=== PATIENT | male | born 1940 | race Caucasian/White ===

== ENCOUNTER 2020-11-20 20:46 | Emergency (ER) | payer MEDICARE ==
[2020-11-20] MEDS ORDERED: SODIUM CHLORIDE 0.9% 500 ML 500 ML IV STA (21:48)
--- NOTE | 2020-11-20 21:58 | ED ---
Dizziness HPI - General Chief Complaint: Dizziness Stated Complaint: Dizziness, Weakness Time Seen by Provider: 11/20/20 21:32 Source: patient Mode of arrival: wheelchair - History of Present Illness Initial Comments: This patient is an 80-year-old man who presents with complaint that he has been feeling some generalized fatigue, a little bit of generalized weakness and feeling dizzy when he gets up to walk. He describes it as feeling off balance. He denies vertigo-type symptoms. Patient states it is not focal, but generalized. He is not aware of any symptoms of infection. No fever or chills. No congestion or cough. No vomiting or diarrhea. No change in urination area MD Complaint: dizziness Onset/Timin -: days(s) Timing: gradual onset Description: off-balance History of Same: No History of Trauma: No Severity: mild Improves With: remaining still, rest Worsens With: movement, exertion Associated Symptoms: other (Fatigue) - Related Data Home Medications Medication Instructions Recorded Confirmed Active Mind 1 tab PO DAILY 11/20/20 11/20/20 Atorvastatin [Lipitor] 40 mg PO DAILY 11/20/20 11/20/20 Cariprazine HCl [Vraylar] 3 mg PO DAILY 11/20/20 11/20/20 Cholecalciferol (Vitamin D3) 125 mcg PO DAILY 11/20/20 11/20/20 [Vitamin D3 (5000 Iu)] Fenofibric Acid (Choline) 135 mg PO HS 11/20/20 11/20/20 [Trilipix] Ferrous Sulfate [Feosol] 325 mg PO DAILY 11/20/20 11/20/20 Furosemide [Lasix] 20 mg PO DAILY PRN 11/20/20 11/20/20 Gabapentin 300 mg PO DAILY 11/20/20 11/20/20 Glimepiride [Amaryl] 4 mg PO DAILY 11/20/20 11/20/20 L.acidoph,Paracasei, B.lactis 1 cap PO DAILY 11/20/20 11/20/20 [Probiotic] Multivitamins, Thera [Multivitamin 1 tab PO DAILY 11/20/20 11/20/20 (formulary)] Potassium Chloride ER [K-Dur 10] 10 meq PO DAILY PRN 11/20/20 11/20/20 Tamsulosin [Flomax] 0.4 mg PO DAILY 11/20/20 11/20/20 Vit A/Vit C/Vit E/Zinc/Copper 1 cap PO DAILY 11/20/20 11/20/20 [ICAPS SOFTGEL] Vitamin B Complex 1 cap PO DAILY 11/20/20 11/20/20 buPROPion XL [Wellbutrin Xl] 150 mg PO DAILY 11/20/20 11/20/20 metFORMIN HCL [Glucophage] 1,000 mg PO BID 11/20/20 11/20/20 Allergies Allergy/AdvReac Type Severity Reaction Status Date / Time No Known Allergies Allergy Verified 11/20/20 22:22 Review of Systems ROS Statement: Those systems with pertinent positive or pertinent negative responses have been documented in the HPI. ROS Other: All systems not noted in ROS Statement are negative. Constitutional: Reports: weakness. Denies: fever, chills Eyes: Denies: vision change Respiratory: Denies: cough, dyspnea Cardiovascular: Denies: chest pain, palpitations, orthopnea, edema, syncope Endocrine: Reports: fatigue Gastrointestinal: Denies: abdominal pain, vomiting, diarrhea Genitourinary: Denies: dysuria, hematuria Musculoskeletal: Denies: back pain Skin: Denies: rash Neurological: Denies: headache, weakness, numbness, paresthesias Past Medical History Past Medical History: Diabetes Mellitus History of Any Multi-Drug Resistant Organisms: None Reported Past Surgical History: No Surgical Hx Reported Past Psychological History: No Psychological Hx Reported Smoking Status: Never smoker Past Alcohol Use History: None Reported Past Drug Use History: None Reported General Exam General appearance: alert, in no apparent distress Head exam: Present: atraumatic, normocephalic Eye exam: Present: normal appearance. Absent: scleral icterus, conjunctival injection ENT exam: Present: mucous membranes dry Neck exam: Present: normal inspection Respiratory exam: Present: normal lung sounds bilaterally. Absent: respiratory distress, wheezes, rales, rhonchi, stridor Cardiovascular Exam: Present: regular rate, normal rhythm, normal heart sounds. Absent: systolic murmur, diastolic murmur, rubs, gallop GI/Abdominal exam: Present: soft. Absent: distended, tenderness, guarding, rebound, rigid, mass Extremities exam: Present: normal inspection, normal capillary refill. Absent: pedal edema, calf tenderness Back exam: Present: normal inspection. Absent: CVA tenderness (R), CVA tenderness (L) Neurological exam: Present: alert, oriented X3. Absent: motor sensory deficit Skin exam: Present: warm, dry, intact, normal color. Absent: rash Course Vital Signs 11/20/20 11/20/20 11/21/20 21:17 23:20 01:30 Temperature 100.5 F H 98.3 F Pulse Rate 84 88 81 Respiratory 19 20 20 Rate Blood Pressure 138/68 141/85 134/72 O2 Sat by Pulse 94 L 96 95 Oximetry 11/21/20 02:56 Temperature 98.1 F Pulse Rate 79 Respiratory 20 Rate Blood Pressure 129/66 O2 Sat by Pulse 96 Oximetry Medical Decision Making - Lab Data Result diagrams: 11/20/20 22:32 11/20/20 22:32 Lab Results 11/20/20 11/20/20 11/20/20 Range/Units 22:32 22:32 22:32 WBC 5.3 (3.8-10.6) k/uL RBC 4.05 L (4.30-5.90) m/uL Hgb 12.4 L (13.0-17.5) gm/dL Hct 35.2 L (39.0-53.0) % MCV 87.0 (80.0-100.0) fL MCH 30.6 (25.0-35.0) pg MCHC 35.2 (31.0-37.0) g/dL RDW 12.8 (11.5-15.5) % Plt Count 207 (150-450) k/uL MPV 7.2 Neutrophils % 81 % Lymphocytes % 11 % Monocytes % 6 % Eosinophils % 1 % Basophils % 0 % Neutrophils # 4.3 (1.3-7.7) k/uL Lymphocytes # 0.6 L (1.0-4.8) k/uL Monocytes # 0.3 (0-1.0) k/uL Eosinophils # 0.0 (0-0.7) k/uL Basophils # 0.0 (0-0.2) k/uL Sodium 133 L (137-145) mmol/L Potassium 4.6 (3.5-5.1) mmol/L Chloride 97 L (98-107) mmol/L Carbon Dioxide 27 (22-30) mmol/L Anion Gap 9 mmol/L BUN 20 (9-20) mg/dL Creatinine 1.11 (0.66-1.25) mg/dL Est GFR (CKD-EPI)AfAm 72 (>60 ml/min/1.73 sqM) Est GFR (CKD-EPI)NonAf 62 (>60 ml/min/1.73 sqM) Glucose 96 (74-99) mg/dL Plasma Lactic Acid Sarabjit 1.1 (0.7-2.0) mmol/L Calcium 9.2 (8.4-10.2) mg/dL Magnesium 2.1 (1.6-2.3) mg/dL Total Bilirubin 0.6 (0.2-1.3) mg/dL AST 60 H (17-59) U/L ALT 69 H (4-49) U/L Alkaline Phosphatase 87 (38-126) U/L Troponin I (0.000-0.034) ng/mL Total Protein 7.2 (6.3-8.2) g/dL Albumin 4.3 (3.5-5.0) g/dL TSH 1.600 (0.465-4.680) mIU/L Urine Color Urine Appearance (Clear) Urine pH (5.0-8.0) Ur Specific [place] (1.001-1.035) Urine Protein (Negative) Urine Glucose (UA) (Negative) Urine Ketones (Negative) Urine Blood (Negative) Urine Nitrite (Negative) Urine Bilirubin (Negative) Urine Urobilinogen (<2.0) mg/dL Ur Leukocyte Esterase (Negative) Urine RBC (0-5) /hpf Urine WBC (0-5) /hpf Urine Mucus (None) /hpf Coronavirus (PCR) (Not Detectd) 11/20/20 11/20/20 11/20/20 Range/Units 22:32 23:03 23:20 WBC (3.8-10.6) k/uL RBC (4.30-5.90) m/uL Hgb (13.0-17.5) gm/dL Hct (39.0-53.0) % MCV (80.0-100.0) fL MCH (25.0-35.0) pg MCHC (31.0-37.0) g/dL RDW (11.5-15.5) % Plt Count (150-450) k/uL MPV Neutrophils % % Lymphocytes % % Monocytes % % Eosinophils % % Basophils % % Neutrophils # (1.3-7.7) k/uL Lymphocytes # (1.0-4.8) k/uL Monocytes # (0-1.0) k/uL Eosinophils # (0-0.7) k/uL Basophils # (0-0.2) k/uL Sodium (137-145) mmol/L Potassium (3.5-5.1) mmol/L Chloride (98-107) mmol/L Carbon Dioxide (22-30) mmol/L Anion Gap mmol/L BUN (9-20) mg/dL Creatinine (0.66-1.25) mg/dL Est GFR (CKD-EPI)AfAm (>60 ml/min/1.73 sqM) Est GFR (CKD-EPI)NonAf (>60 ml/min/1.73 sqM) Glucose (74-99) mg/dL Plasma Lactic Acid Sarabjit (0.7-2.0) mmol/L Calcium (8.4-10.2) mg/dL Magnesium (1.6-2.3) mg/dL Total Bilirubin (0.2-1.3) mg/dL AST (17-59) U/L ALT (4-49) U/L Alkaline Phosphatase (38-126) U/L Troponin I 0.023 (0.000-0.034) ng/mL Total Protein (6.3-8.2) g/dL Albumin (3.5-5.0) g/dL TSH (0.465-4.680) mIU/L Urine Color Yellow Urine Appearance Clear (Clear) Urine pH 6.0 (5.0-8.0) Ur Specific [place] 1.018 (1.001-1.035) Urine Protein 1+ H (Negative) Urine Glucose (UA) Negative (Negative) Urine Ketones Negative (Negative) Urine Blood Negative (Negative) Urine Nitrite Negative (Negative) Urine Bilirubin Negative (Negative) Urine Urobilinogen <2.0 (<2.0) mg/dL Ur Leukocyte Esterase Negative (Negative) Urine RBC 3 (0-5) /hpf Urine WBC <1 (0-5) /hpf Urine Mucus Rare H (None) /hpf Coronavirus (PCR) Detected A (Not Detectd) Disposition Clinical Impression: COVID-19 Disposition: HOME SELF-CARE Instructions (If sedation given, give patient instructions): Coronavirus Disease 2019 (COVID-19) Is patient prescribed a controlled substance at d/c from ED?: No Referrals: Abi Mix DO [Primary Care Provider] - 1-2 days
--- NOTE | 2020-11-20 23:02 | XR ---
EXAMINATION TYPE: XR chest 2V DATE OF EXAM: 11/20/2020 COMPARISON: NONE HISTORY: Weakness TECHNIQUE: 2 views FINDINGS: Heart is normal. There is some coarse infiltrate in the lower lung quigley. There are no hi lar masses. There is no pleural effusion. There are chest leads. Bony thorax is intact. IMPRESSION: There is some mild pneumonia in both lower lobes. No heart failure seen.
[2020-11-20 23:10] LABS: Basophils % (A) 0 %; Eosinophils % (A) 1 %; HCT 35.2 % (39.0-53.0); HGB 12.4 gm/dL (13.0-17.5); Lymphocytes # (A) 0.6 k/uL (1.0-4.8); Lymphocytes % (A) 11 %; MCH 30.6 pg (25.0-35.0); MCHC 35.2 g/dL (31.0-37.0); Mean Platelet Volume 7.2; Monocytes # (A) 0.3 k/uL (0-1.0); Monocytes % (A) 6 %; Neutrophils # (A) 4.3 k/uL (1.3-7.7); Neutrophils % (A) 81 %; Platelet Count 207 k/uL (150-450); RBC 4.05 m/uL (4.30-5.90); RDW 12.8 % (11.5-15.5); WBC 5.3 k/uL (3.8-10.6)
[2020-11-20 23:41] LABS: Albumin 4.3 g/dL (3.5-5.0); Calcium 9.2 mg/dL (8.4-10.2); Magnesium 2.1 mg/dL (1.6-2.3); Potassium 4.6 mmol/L (3.5-5.1); Total Bilirubin 0.6 mg/dL (0.2-1.3); Total Protein 7.2 g/dL (6.3-8.2)
[2020-11-20 23:46] VITALS: RESP 20
[2020-11-21 00:46] LABS: Appearance,Urine Clear (Clear); Bilirubin,Urine Negative (Negative); Blood,Urine Negative (Negative); Color,Urine Yellow; Glucose,Urine (UA) Negative (Negative); Ketones,Urine Negative (Negative); Leukocyte Esterase,Urine Negative (Negative); Mucus,Urine Rare /hpf; Nitrite,Urine Negative (Negative); Protein,Urine 1+ (Negative); RBC,Urine 3 /hpf (0-5); Specific Gravity,Urine 1.018 (1.001-1.035); Urobilinogen,Urine <2.0 mg/dL (<2.0); WBC,Urine <1 /hpf (0-5)
[2020-11-21] MEDS ORDERED: BAMLANIVIMAB (EUA) 700 MG, ETESEVIMAB (EUA) 1,400 MG in SODIUM CHLORIDE 0.9% 50 ML IVPB ONE (01:30)
[2020-11-21 02:57] VITALS: BP 129/66; PULSE 79; TEMP 98.1
== END 2020-11-21 02:58 | disposition home or self-care (01) ==
LOC: EC 20:46
DX: R42 Dizziness and giddiness (principal); E11.9 Type 2 diabetes mellitus without complications
CPT/HCPCS: 36415; 93005; 80053; 83605; 83735; 84443; 84484; 85025; 81001; 87635; 71046; 99285; 96365; 96361; Q0245

== ENCOUNTER → 2022-04-05 | Outpatient (CLI) | payer MEDICARE, OTHER ==
--- NOTE | 2022-04-05 14:37 | US ---
EXAMINATION TYPE: US kidneys/renal and bladder DATE OF EXAM: 04/05/2022 COMPARISON: US 2013 CLINICAL HISTORY: N18.2 CHRONIC KIDNEY DISEASE, STAGE 2 (MILD). EXAM MEASUREMENTS: Right Kidney: 10.1 x 5.2 x 4.8 cm Left Kidney: 10.2 x 5.6 x 5.4 cm Right Kidney: No hydronephrosis or masses seen Left Kidney: No hydronephrosis or masses seen Bladder: not fully distended Bilateral Jets seen: right jet not seen, left jet seen There is no evidence for hydronephrosis at this point in time. No nephrolithiasis is seen. No chucho s are identified. The urinary bladder is anechoic. IMPRESSION: No significant abnormality seen.
== END | disposition home or self-care (01) ==
LOC: RADUSWWP 13:33
PROVIDERS: ATTEND Internal Medicine Nephrology
DX: N18.2 Chronic kidney disease, stage 2 (mild) (principal)
CPT/HCPCS: 76770

== ENCOUNTER 2024-05-13 06:58 | Day surgery (SDC) | payer MEDICARE ==
[~2024-05-13 06:58] MED LIST: ALPRAZolam 0.25 MG TAB PO PRN; ALPRAZolam 0.5 MG TAB PO PRN; NITROGLYCERIN SL TABS 0.4 MG TAB SUBLINGUAL PRN
[2024-05-13] MEDS: IV FLUID CONTINUATION 1,000 ML IV ONE ×2 (07:16→11:00)
[2024-05-13] MEDS: SODIUM CHLORIDE 0.9% 1,000 ML in EMPTY BAG 1 BAG IV SCH (07:25)
[2024-05-13 07:31] LABS: Glucose,Whole Blood 133 mg/dL (70-110)
[2024-05-13] MEDS: ASPIRIN 325 MG TAB PO STA (08:57)
[2024-05-13] MEDS: MIDAZOLAM 2 MG/2 ML VIAL IVP ONE ×2 (09:10→09:43)
[2024-05-13] MEDS: LIDOCAINE 0.5%-EPI 1:200,000 50 ML VIAL SQ ONE ×2 (09:11→09:12)
[2024-05-13] MEDS: VERAPAMIL SYRINGE (5 MG/10 ML) INTRAARTER ONE (09:12)
[2024-05-13] MEDS: HEPARIN SODIUM 1,000 UN/ML (10ML VL) IVP ONE (09:14)
[2024-05-13] MEDS: HEPARIN SODIUM,PORCINE 10,000 UNIT in SODIUM CHLORIDE 0.9% 1,000 ML IRRIGATION ONE (09:17)
[2024-05-13] MEDS: HEPARIN SODIUM,PORCINE (1 ML) 2,500 UNIT in SODIUM CHLORIDE 0.9% 250 ML IRRIGATION ONE (09:17)
[2024-05-13] MEDS: IOPAMIDOL-370 100ML BTL INJ ONE ×2 (09:39→10:00)
[2024-05-13] MEDS: LIDOCAINE 1% INJ 10MG/ML (20 ML MDV) SQ ONE (09:43)
[2024-05-13] MEDS ORDERED: RX INFO: IV CONTRAST WAS GIVEN 1 EACH MISC MISCELLANE PRN (09:48)
--- NOTE | 2024-05-13 09:52 | P.PCN ---
Date of Procedure: 05/13/24 Operative Findings: CARDIAC CATHETERIZATION PERFORMING PHYSICIAN: Davis Vernon MD, RPVI PROCEDURE PERFORMED: 1. Selective right and left coronary angiogram 2. Left heart catheterization 3. Ultrasound-guided access of the right radial artery and right common femoral artery and selective right common femoral artery angiogram INDICATION: Symptomatic 83-year-old gentleman with abnormal myocardial perfusion imaging stress test COMPLICATION: None APPROACH: Right radial artery Right common femoral artery LEVEL OF SEDATION: Moderate with a sedation length of 35 minutes PROCEDURE DESCRIPTION: After obtaining an informed consent, the patient was brought to cardiac cathode ray tube salvage processor. Local anesthesia was performed using lidocaine subcutaneously. The right radial artery was cannulated using Seldinger technique, the guidewire passed easily, following that we advanced a 5-Yoruba sheath dilator assembly, the wire and dilator were removed and sheath was flushed. Following that, 2 mg of verapamil along with 5000 unit heparin were given. Left heart catheterization was performed using the JR4 catheter. The left coronary angiogram was performed using an AL-1 catheter. Right coronary angiogram was performed using Chucky right morrell from right groin. We had to access the right common femoral artery because I could not engage the RCA from the lower right radial artery. So the right common femoral artery was cannulated micropuncture think under ultrasound guidance micropuncture wire passed easily then I placed a 6 Yoruba 11 cm sheath. Following that we did left heart catheterization using 6-Yoruba pigtail catheter. The procedure was completed there was no complication. By the end I did selective right common femoral artery angiogram SELECTIVE CORONARY ANGIOGRAM: The right coronary artery: Large-caliber vessel and a dominant vessel with mild disease only Left main: Calcified with mild disease only The left circumflex: Large-caliber vessel nondominant vessel with mild disease only The left anterior descending artery: Large-caliber vessel with no high-grade stenosis was identified HEMODYNAMICS: The LVEDP was about 18 mmHg with no significant gradient across aortic valve CONCLUSION: 1. Mild nonobstructive CAD 2. Mildly elevated left-sided filling pressure POSTPROCEDURE MANAGEMENT: Medical treatment
[2024-05-13] MEDS ORDERED: SODIUM CHLORIDE 0.9% 1,000 ML IV SCH (10:00)
[2024-05-13 12:00] LABS: Glucose,Whole Blood 134 mg/dL (70-110)
[2024-05-13] MEDS: hydrALAZINE HCL 20 MG/ML 1 ML VIAL IVP STA (12:35)
[2024-05-13] MEDS: SODIUM CHLORIDE 0.9% 1,000 ML IV ONE (13:00)
[2024-05-13 14:16] VITALS: RESP 16
[2024-05-13] MEDS: hydrALAZINE HCL 20 MG/ML 1 ML VIAL IM STA (16:38)
[2024-05-13 19:33] VITALS: BP 145/74; PULSE 65; TEMP 98.2
== END 2024-05-13 20:33 | disposition home or self-care (01) ==
LOC: CATHCVL 06:58 → 6NMEDSUR 09:47 → CATHCVL 20:33
PROVIDERS: ATTEND Internal Medicine Interventional Cardiology
DX: R06.02 Shortness of breath
CPT/HCPCS: 93458

== ENCOUNTER → 2024-05-31 | Outpatient (CLI) | payer MEDICARE ==
--- NOTE | 2024-05-31 09:41 | US ---
EXAMINATION TYPE: US abdomen complete DATE OF EXAM: 05/31/2024 COMPARISON: NONE CLINICAL INDICATION: Male, 84 years old with history of R19.00 INTRA-ABD AND PELVIC SWELLING; TECHNIQUE: Grayscale and color Doppler imaging of the abdomen was performed. FINDINGS: EXAM MEASUREMENTS: Liver Length: 17.9 cm Gallbladder Wall: 0.2 cm CBD: 0.4 cm Spleen: 11.1 cm Right Kidney: 10.8 x 4.9 x 4.6 cm Left Kidney: 11.3 x 6.0 x 7.2 cm Pancreas: obscured by overlying midline bowel gas Liver: measures in upper limits of normal Gallbladder: 0.3cm echogenic focus within anterior wall Evidence for sonographic Horn's sign: no CBD: visualized portions wnl, limited by overlying bowel gas Spleen: visualized portions wnl, limited by overlying bowel gas Right Kidney: wnl Left Kidney: wnl Upper IVC: wnl Abd Aorta: proximal portion obscured by overlying midline bowel gas, visualized mid and distal porti ons appear wnl The liver is homogenous. The intrahepatic portion of the IVC and proximal abdominal aorta are within normal limits. Common bile duct is unremarkable. The visualized portions of the pancreas are homog enous. The spleen is unremarkable. Kidneys are symmetric and free of hydronephrosis. No renal lesi ons are seen. IMPRESSION: Uncomplicated cholelithiasis. [facility], , 05/31/2024 9:39 AM
== END | disposition home or self-care (01) ==
LOC: RADUSWWP 07:10
PROVIDERS: ATTEND Family Medicine
DX: K80.20 Calculus of gallbladder without cholecystitis without obstruction (principal)
CPT/HCPCS: 76700

== ENCOUNTER → 2024-08-02 | Outpatient (CLI) | payer MEDICARE ==
--- NOTE | 2024-08-02 18:03 | MR ---
EXAMINATION TYPE: MR brain wo/w con DATE OF EXAM: 08/02/2024 11:57 AM COMPARISON: None. CLINICAL INDICATION: Male, 84 years old with history of R41.82 AMS; , AMS, disorientation, Hearing lo ss bilat, Rt side weakness, Hx Prostate cancer TECHNIQUE: Multi planar, multi sequence imaging was performed through the brain including: T1, T2, In version recovery, susceptibility weighted imaging and gradient echo imaging and Diffusion weighted im aging. The patient was then given intravenous contrast and multi planar, T1 fat-saturation images wer e obtained. IV Contrast: 8.5 mL Gadobutrol FINDINGS: The cummins-white junctions, ventricular system, basal cisterns appear unremarkable. Diffusion-weighted imaging shows no evidence of restricted diffusion to suggest acute/subacute infarct. Intracranial ar terial flow voids are maintained. Midline structures show no abnormality. Scattered foci of high T2 s ignal intensity are seen within the periventricular white matter. The susceptibility weighted images do not reveal any evidence for micro-hemorrhage. After administration of gadolinium, no abnormal enha ncement is seen. The bone marrow signal is within normal limits. Paranasal sinuses and mastoid air cells: No significant paranasal sinus disease. Visualized orbits: Orbital contents are intact. IMPRESSION: 1. No evidence of intracranial mass, acute/subacute infarct, or abnormal enhancement. 2. Nonspecific white matter changes, likely related to small vessel ischemic disease. [facility], , 08/02/2024 6:01 PM
== END | disposition home or self-care (01) ==
LOC: RADMRIMAIN 10:41
PROVIDERS: ATTEND Family Medicine
DX: R41.82 Altered mental status, unspecified (principal); R90.82 White matter disease, unspecified
CPT/HCPCS: 70553; A9585

== ENCOUNTER 2024-11-19 13:26 | Inpatient (IN) | payer MEDICARE ==
--- NOTE | 2024-11-19 13:31 | ED ---
Syncope HPI - General Stated Complaint: low heart rate Time Seen by Provider: 11/19/24 13:30 Source: RN notes reviewed, old records reviewed Mode of arrival: EMS Limitations: no limitations - History of Present Illness Initial Comments: This is an 84 male presents to the ER for evaluation of a syncopal event. Patient was found to be significant bradycardic by EMS after they were called because his was unable to get him to respond, EMS got to the house patient did have a heart rate in the 20s with no palpable blood pressure and was unarousable. By the time they had loaded them into the EMS vehicle he was starting to come around with heart rate improving into the 40s and low blood pressure. On arrival to the ER patient has no complaints headache chest pain shortness of breath abdominal pain history of atrial fibrillation no change in medications occasionally takes midodrine for blood pressure MD Complaint: loss of consciousness, collapsed Prodromal Symptoms: none -: second(s) Witnessed: yes - by bystander Injuries Sustained Associated with Event: None Current Symptoms: none History: previous syncopal episode, pacemaker (Open with about needing a pacemaker which she has refused in the past) Context: at rest - Related Data Home Medications Medication Instructions Recorded Confirmed Atorvastatin [Lipitor] 40 mg PO DAILY 11/20/20 11/19/24 Cariprazine HCl [Vraylar] 3 mg PO DAILY 11/20/20 11/19/24 Cholecalciferol (Vitamin D3) 125 mcg PO DAILY 11/20/20 11/19/24 [Vitamin D3 (5000 Iu)] Ferrous Sulfate [Iron (65 MG 325 mg PO DAILY 11/20/20 11/19/24 Elemental)] Gabapentin 300 mg PO DAILY 11/20/20 11/19/24 Glimepiride [Amaryl] 8 mg PO DAILY 11/20/20 11/19/24 L.acidoph,Paracasei, B.lactis 1 cap PO DAILY 11/20/20 11/19/24 [Probiotic] Multivitamins, Thera [Multivitamin 1 tab PO DAILY 11/20/20 11/19/24 (formulary)] Tamsulosin [Flomax] 0.4 mg PO BID 11/20/20 11/19/24 buPROPion XL [Wellbutrin XL] 150 mg PO DAILY 11/20/20 11/19/24 Pentoxifylline [TRENtal] 400 mg PO AC-TID 05/13/24 11/19/24 Pioglitazone [Actos] 30 mg PO DAILY 05/13/24 11/19/24 Benzonatate [Tessalon Perle] 200 mg PO TID PRN 11/19/24 11/19/24 Cyanocobalamin (Vitamin B-12) 2,000 mcg PO DAILY 11/19/24 11/19/24 [Vitamin B-12] Folic Acid 1 mg PO DAILY 11/19/24 11/19/24 Gabapentin [Neurontin] 600 mg PO HS 11/19/24 11/19/24 Linagliptin [Tradjenta] 5 mg PO DAILY 11/19/24 11/19/24 Pantoprazole [Protonix] 40 mg PO BID 11/19/24 11/19/24 metFORMIN HCL [Glucophage] 1,000 mg PO BID 11/19/24 11/19/24 Previous Rx's Medication Instructions Recorded Apixaban [Eliquis] 5 mg PO BID #60 tab 11/21/24 Midodrine [ProAmatine] 5 mg PO AC-BID PRN #0 caplet 11/21/24 Allergies Allergy/AdvReac Type Severity Reaction Status Date / Time No Known Allergies Allergy Verified 11/19/24 16:35 Review of Systems ROS Statement: Those systems with pertinent positive or pertinent negative responses have been documented in the HPI. ROS Other: All systems not noted in ROS Statement are negative. Past Medical History Past Medical History: Diabetes Mellitus History of Any Multi-Drug Resistant Organisms: None Reported Past Surgical History: No Surgical Hx Reported Past Psychological History: No Psychological Hx Reported General Exam General appearance: alert, in no apparent distress Head exam: Present: atraumatic, normocephalic, normal inspection Eye exam: Present: normal appearance, PERRL, EOMI. Absent: scleral icterus, conjunctival injection, periorbital swelling ENT exam: Present: normal exam, mucous membranes moist Neck exam: Present: normal inspection. Absent: tenderness, meningismus, lymphadenopathy Respiratory exam: Present: normal lung sounds bilaterally. Absent: respiratory distress, wheezes, rales, rhonchi, stridor Cardiovascular Exam: Present: bradycardia, normal heart sounds. Absent: systolic murmur, diastolic murmur, rubs, gallop, clicks GI/Abdominal exam: Present: soft, normal bowel sounds. Absent: distended, tenderness, guarding, rebound, rigid Extremities exam: Present: normal inspection, full ROM, normal capillary refill. Absent: tenderness, pedal edema, joint swelling, calf tenderness Back exam: Present: normal inspection Neurological exam: Present: alert, oriented X3, CN II-XII intact Psychiatric exam: Present: normal affect, normal mood Skin exam: Present: warm, dry, intact, normal color. Absent: rash Course Vital Signs 11/19/24 11/19/24 11/19/24 13:29 13:45 14:16 Temperature 98.1 F Pulse Rate 49 L 60 60 Pulse Rate [ Pulse Oximetery ] Respiratory 18 18 18 Rate Blood Pressure 102/62 124/65 108/65 Blood Pressure [Left Arm] O2 Sat by Pulse 97 97 98 Oximetry 11/19/24 11/19/24 11/19/24 15:23 16:00 18:07 Temperature 97.8 F 97.7 F Pulse Rate 41 L 45 L 64 Pulse Rate [ 49 L Pulse Oximetery ] Respiratory 18 18 18 Rate Blood Pressure 144/78 138/99 167/74 Blood Pressure 121/63 [Left Arm] O2 Sat by Pulse 95 98 96 Oximetry 11/19/24 11/19/24 11/19/24 19:45 20:00 22:00 Temperature 97.9 F Pulse Rate 55 L 51 L 52 L Pulse Rate [ Pulse Oximetery ] Respiratory 18 17 17 Rate Blood Pressure 123/69 133/69 133/67 Blood Pressure [Left Arm] O2 Sat by Pulse 97 98 94 L Oximetry 11/19/24 11/20/24 11/20/24 23:00 01:00 02:00 Temperature Pulse Rate 54 L 57 L 43 L Pulse Rate [ Pulse Oximetery ] Respiratory 18 18 16 Rate Blood Pressure 132/69 125/68 127/67 Blood Pressure [Left Arm] O2 Sat by Pulse 97 97 97 Oximetry 11/20/24 11/20/24 11/20/24 04:00 07:41 08:35 Temperature 98 F Pulse Rate 43 L 48 L 67 Pulse Rate [ Pulse Oximetery ] Respiratory 16 20 20 Rate Blood Pressure 147/76 169/77 169/78 Blood Pressure [Left Arm] O2 Sat by Pulse 96 97 97 Oximetry 11/20/24 11/20/24 11/20/24 10:41 11:21 13:01 Temperature Pulse Rate 56 L 53 L 52 L Pulse Rate [ Pulse Oximetery ] Respiratory 20 20 18 Rate Blood Pressure 129/72 158/60 142/59 Blood Pressure [Left Arm] O2 Sat by Pulse 97 97 96 Oximetry - Reevaluation(s) Reevaluation #1: 11/19/24 15:17 Medical records reviewed longstanding history of atrial fibrillation on anticoagulation Reevaluation #2: 11/19/24 15:18 Patient states he has no complaints here in the ER and throughout stay Patient is adamant that he does not want to stay overnight but I am able to convince him to do secondary to severe bradycardia although he is not keen on the idea of having a pacemaker Reevaluation #3: 11/19/24 15:18 Informed of results questions answered Reevaluation #4: Was pt. sent in by a medical professional or institution ([facility], CRAFT WORKER, urgent care, hospital, or half-way...) When possible be specific @ -no Did you speak to anyone other than the patient for history (EMS, parent, family, police, friend...)? What history was obtained from this source @ -no Did you review nursing and triage notes (agree or disagree)? Why? @ -agree Are old charts reviewed (outside hosp., previous admission, EMS record, old EKG, old radiological studies, urgent care reports/EKG's, half-way records)? Report findings @ -yes Differential Diagnosis (chest pain, altered mental status, abdominal pain women, abdominal pain men, vaginal bleeding, weakness, fever, dyspnea, syncope, h eadache, dizziness, GI bleed, back pain, seizure, CVA, palpatations, mental health, musculoskeletal)? @ -prior EKG interpreted by me (3pts min.). @ -yes X-rays interpreted by me (1pt min.). @ -yes negative for acute disease CT interpreted by me (1pt min.). @ -no U/S interpreted by me (1pt. min.). @ -no What testing was considered but not performed or refused? (CT, X-rays, U/S, labs)? Why? @ -none What meds were considered but not given or refused? Why? @ -none Did you discuss the management of the patient with other professionals (professionals i.e. , PA, CRAFT WORKER, lab, RT, psych nurse, psych social worker, airplane refueler, teacher, tactical deception plans officer, business case analyst)? Give summary @ -no Was smoking cessation discussed for >3mins.? @ -no Was critical care preformed (if so, how long)? @ -yes31 Were there social determinants of health that impacted care today? How? (Homelessness, low income, unemployed, alcoholism, drug addiction, transportation, low edu. Level, literacy, decrease access to med. care, prison, rehab)? @ -none Was there de-escalation of care discussed even if they declined (Discuss DNR or withdrawal of care, Hospice)? DNR status @ -no What co-morbidities impacted this encounter? (DM, HTN, Smoking, COPD, CAD, Cancer, CVA, ARF, Chemo, Hep., AIDS, mental health diagnosis, sleep apnea, morbid obesity)? @ -none Was patient admitted / discharged? Hospital course, mention meds given and route, prescriptions, significant lab abnormalities, going to OR and other pertinent info. @ - 84 male to the ER will be admitted for syncopal event with severe bradycardia cardiology evaluation is will be admitted for persistent severe bradycardia with syncope Admitted Undiagnosed new problem with uncertain prognosis? @ -no Drug Therapy requiring intensive monitoring for toxicity (Heparin, Nitro, Insulin, Cardizem)? @ -no Were any procedures done? @ -no Diagnosis/symptom? @ -Bradycardia and syncope Acute, or Chronic, or Acute on Chronic? @ -Acute Uncomplicated (without systemic symptoms) or Complicated (systemic symptoms)? @ -Complicated Side effects of treatment? @ -no Exacerbation, Progression, or Severe Exacerbation? @ -exacerbation Poses a threat to life or bodily function? How? (Chest pain, USA, CO, pneumonia, PE, COPD, DKA, ARF, appy, cholecystitis, CVA, Diverticulitis, Homicidal, Suicidal, threat to staff... and all critical care pts) @ -yes extremes of age Reevaluation #5: Differential Syncope: Valvular disease, hypertrophic cardiomyopathy, pulmonary embolism, tamponade, tachycardia, bradycardia, CO, hypovolemia, hemorrhage, dissection, anemia, intracranial hemorrhage, seizure, hypoglycemia, carbon monoxide poisoning, this is not meant to be an all-inclusive list. - Consultations Consultation #1: Spoke with [facility] who agrees to admit this patient EKG Findings - EKG Comments: EKG Findings:: EKG is A-fib 40 QRS 94 QTc 410 - EKG Results: EKG: interpreted by LESTERD EKG shows: bradycardia, atrial fibrillation Medical Decision Making - Medical Decision Making 84 male to the ER will be admitted for syncopal event with severe bradycardia cardiology evaluation is will be admitted for persistent severe bradycardia with syncope - Lab Data Result diagrams: 11/20/24 10:28 11/20/24 10:28 Lab Results 11/19/24 11/19/24 11/19/24 Range/Units 13:37 13:37 13:37 WBC 5.2 (3.8-10.6) k/uL RBC 4.32 (4.30-5.90) m/uL Hgb 12.2 L (13.0-17.5) gm/dL Hct 38.4 L (39.0-53.0) % MCV 89.0 (80.0-100.0) fL MCH 28.2 (25.0-35.0) pg MCHC 31.7 (31.0-37.0) g/dL RDW 15.0 (11.5-15.5) % Plt Count 191 (150-450) k/uL MPV 8.6 Neutrophils % 69 % Lymphocytes % 22 % Monocytes % 5 % Eosinophils % 2 % Basophils % 1 % Neutrophils # 3.6 (1.3-7.7) k/uL Lymphocytes # 1.1 (1.0-4.8) k/uL Monocytes # 0.3 (0-1.0) k/uL Eosinophils # 0.1 (0-0.7) k/uL Basophils # 0.0 (0-0.2) k/uL PT 11.4 (10.0-12.5) sec INR 1.0 (<1.2) APTT 23.9 (22.0-30.0) sec Sodium 139 (137-145) mmol/L Potassium 4.1 (3.5-5.1) mmol/L Chloride 104 (98-107) mmol/L Carbon Dioxide 28 (22-30) mmol/L Anion Gap 7 mmol/L BUN 12 (9-20) mg/dL Creatinine 1.41 H (0.66-1.25) mg/dL Est GFR (CKD-EPI)AfAm 52 (>60 ml/min/1.73 sqM) Est GFR (CKD-EPI)NonAf 45 (>60 ml/min/1.73 sqM) Glucose 177 H (74-99) mg/dL Calcium 9.3 (8.4-10.2) mg/dL Phosphorus 4.3 (2.5-4.5) mg/dL Magnesium 1.7 (1.6-2.3) mg/dL Total Bilirubin 0.7 (0.2-1.3) mg/dL AST 23 (17-59) U/L ALT 10 (4-49) U/L Alkaline Phosphatase 50 (38-126) U/L Troponin I (0.000-0.034) ng/mL NT-Pro-B Natriuret Pep 1170 pg/mL Total Protein 7.2 (6.3-8.2) g/dL Albumin 4.2 (3.5-5.0) g/dL TSH 5.050 H (0.465-4.680) mIU/L Free T4 (0.78-2.19) ng/dL 11/19/24 11/19/24 Range/Units 13:37 13:37 WBC (3.8-10.6) k/uL RBC (4.30-5.90) m/uL Hgb (13.0-17.5) gm/dL Hct (39.0-53.0) % MCV (80.0-100.0) fL MCH (25.0-35.0) pg MCHC (31.0-37.0) g/dL RDW (11.5-15.5) % Plt Count (150-450) k/uL MPV Neutrophils % % Lymphocytes % % Monocytes % % Eosinophils % % Basophils % % Neutrophils # (1.3-7.7) k/uL Lymphocytes # (1.0-4.8) k/uL Monocytes # (0-1.0) k/uL Eosinophils # (0-0.7) k/uL Basophils # (0-0.2) k/uL PT (10.0-12.5) sec INR (<1.2) APTT (22.0-30.0) sec Sodium (137-145) mmol/L Potassium (3.5-5.1) mmol/L Chloride (98-107) mmol/L Carbon Dioxide (22-30) mmol/L Anion Gap mmol/L BUN (9-20) mg/dL Creatinine (0.66-1.25) mg/dL Est GFR (CKD-EPI)AfAm (>60 ml/min/1.73 sqM) Est GFR (CKD-EPI)NonAf (>60 ml/min/1.73 sqM) Glucose (74-99) mg/dL Calcium (8.4-10.2) mg/dL Phosphorus (2.5-4.5) mg/dL Magnesium (1.6-2.3) mg/dL Total Bilirubin (0.2-1.3) mg/dL AST (17-59) U/L ALT (4-49) U/L Alkaline Phosphatase (38-126) U/L Troponin I 0.043 H* (0.000-0.034) ng/mL NT-Pro-B Natriuret Pep pg/mL Total Protein (6.3-8.2) g/dL Albumin (3.5-5.0) g/dL TSH (0.465-4.680) mIU/L Free T4 1.10 (0.78-2.19) ng/dL - EKG Data -: EKG Interpreted by Me Critical Care Time Critical Care Time: Yes Total Critical Care Time: 31 Disposition Clinical Impression: Fall, Syncope, Bradycardia, Sick sinus syndrome, Atrial fibrillation Disposition: ADMITTED IP TO THIS HOSP Condition: Fair Is patient prescribed a controlled substance at d/c from ED?: No Time of Disposition: 15:00
[2024-11-19] MEDS: SODIUM CHLORIDE 0.9% 1,000 ML IV ONE (13:38)
[2024-11-19] MEDS: ATROPINE SULFATE 0.1 MG/ML 10ML SYRINGE IV STA (13:40)
[2024-11-19] MEDS: HYDROCORTISONE SUCCINATE 100 MG/2 ML VIAL IV STA (13:43)
[2024-11-19 13:47] LABS: Basophils % (A) 1 %; Eosinophils # (A) 0.1 k/uL (0-0.7); Eosinophils % (A) 2 %; HCT 38.4 % (39.0-53.0); HGB 12.2 gm/dL (13.0-17.5); Lymphocytes # (A) 1.1 k/uL (1.0-4.8); Lymphocytes % (A) 22 %; MCH 28.2 pg (25.0-35.0); MCHC 31.7 g/dL (31.0-37.0); Mean Platelet Volume 8.6; Monocytes # (A) 0.3 k/uL (0-1.0); Monocytes % (A) 5 %; Neutrophils # (A) 3.6 k/uL (1.3-7.7); Neutrophils % (A) 69 %; Platelet Count 191 k/uL (150-450); RBC 4.32 m/uL (4.30-5.90); WBC 5.2 k/uL (3.8-10.6)
[2024-11-19 13:57] LABS: ALT 10 U/L (4-49); AST 23 U/L (17-59); African American GFR (CKD) 52 (>60 ml/min/1.73 sqM); Albumin 4.2 g/dL (3.5-5.0); Alkaline Phosphatase 50 U/L (38-126); Anion Gap 7 mmol/L; Blood Urea Nitrogen 12 mg/dL (9-20); Calcium 9.3 mg/dL (8.4-10.2); Carbon Dioxide 28 mmol/L (22-30); Chloride 104 mmol/L (98-107); Glucose 177 mg/dL (74-99); Magnesium 1.7 mg/dL (1.6-2.3); Non-African American GFR(CKD) 45 (>60 ml/min/1.73 sqM); Phosphorus 4.3 mg/dL (2.5-4.5); Potassium 4.1 mmol/L (3.5-5.1); Sodium 139 mmol/L (137-145); Total Bilirubin 0.7 mg/dL (0.2-1.3); Total Protein 7.2 g/dL (6.3-8.2)
[2024-11-19 14:02] LABS: Partial Thromboplastin Time 23.9 sec (22.0-30.0); Prothrombin Time 11.4 sec (10.0-12.5)
[2024-11-19 14:06] LABS: NT-Pro-B-Type Natriuretic Pept 1170 pg/mL
[2024-11-19] MEDS ORDERED: ONDANSETRON 4 MG/2 ML VIAL IVP PRN (15:13)
[2024-11-19] MEDS ORDERED: NALOXONE 0.4 MG/ML 1 ML VIAL IV PRN (15:13)
[2024-11-19] MEDS: SODIUM CHLORIDE 0.9% 1,000 ML IV SCH (15:50)
[2024-11-20] MEDS: APIXABAN 5 MG TAB PO SCH (08:34)
[2024-11-20] MEDS: ATORVASTATIN 40 MG TAB PO SCH (08:34)
[2024-11-20] MEDS: MIDODRINE 5 MG TAB PO SCH (08:38)
[2024-11-20] MEDS ORDERED: DEXTROSE 50% SYRINGE 50 ML IVP PRN ×2 (08:58)
[2024-11-20] MEDS ORDERED: amLODIPine 5 MG TAB PO SCH (09:00)
--- NOTE | 2024-11-20 10:04 | XR ---
EXAMINATION TYPE: XR chest 2V DATE OF EXAM: 11/20/2024 9:26 AM COMPARISON: 11/20/2020 CLINICAL INDICATION: Male, 84 years old with history of syncope; [facility] TECHNIQUE: XR chest 2V Frontal and lateral views of the chest. FINDINGS: Lungs/Pleura: There is no evidence of pleural effusion, focal consolidation, or pneumothorax. Pulmonary vascularity: Unremarkable. Heart/mediastinum: Cardiomediastinal silhouette is unremarkable. Musculoskeletal: No acute osseous pathology. IMPRESSION: No acute cardiopulmonary disease/process. [facility], , 11/20/2024 10:02 AM
[2024-11-20] MEDS: GABAPENTIN 300 MG CAP PO SCH ×2 (10:34→21:07)
[2024-11-20] MEDS: FOLIC ACID 1 MG TAB PO SCH (10:35)
[2024-11-20] MEDS: TAMSULOSIN 0.4 MG CAP.ER.24H PO SCH (10:35)
[2024-11-20] MEDS: BENZONATATE 100 MG CAP PO PRN (10:35)
[2024-11-20] MEDS: LACTOBACILLUS ACIDOPHILUS/PECT 1 EACH CAPSULE PO SCH (10:35)
[2024-11-20] MEDS: CYANOCOBALAMIN 500 MCG TAB PO SCH (10:35)
[2024-11-20] MEDS: LINAGLIPTIN 5 MG TABLET PO SCH (10:36)
[2024-11-20] MEDS: MULTIVITAMINS, THERA 1 EACH TAB PO SCH (10:36)
[2024-11-20] MEDS: PIOGLITAZONE 30 MG TAB PO SCH (10:36)
[2024-11-20] MEDS: FERROUS SULFATE 325 MG TAB PO SCH (10:36)
[2024-11-20] MEDS: CHOLECALCIFEROL 125 MCG (5000 IU) TABLET PO SCH (10:36)
[2024-11-20] MEDS: buPROPion XL 150 MG TAB.ER.24H PO SCH (10:36)
[2024-11-20] MEDS: PANTOPRAZOLE 40 MG TABLET PO SCH (10:37)
[2024-11-20] MEDS: NON FORMULARY DRUG (Cariprazine Hcl [Vraylar] 3 MG Capsule) PO SCH (10:38)
[2024-11-20 11:00] LABS: Basophils % (A) 0 %; Eosinophils # (A) 0.1 k/uL (0-0.7); Eosinophils % (A) 2 %; Hypochromasia Slight; Lymphocytes # (A) 1.7 k/uL (1.0-4.8); Lymphocytes % (A) 29 %; MCH 28.2 pg (25.0-35.0); MCHC 31.5 g/dL (31.0-37.0); MCV 89.7 fL (80.0-100.0); Mean Platelet Volume 8.2; Monocytes # (A) 0.5 k/uL (0-1.0); Monocytes % (A) 8 %; Neutrophils # (A) 3.5 k/uL (1.3-7.7); Neutrophils % (A) 59 %; Platelet Count 213 k/uL (150-450); RBC 4.24 m/uL (4.30-5.90); RDW 14.9 % (11.5-15.5); WBC 5.8 k/uL (3.8-10.6)
--- NOTE | 2024-11-20 11:17 | P.CRDCN ---
History of Present Illness History of present illness: HISTORY OF PRESENT ILLNESS: This is a 84-year-old male with a past medical history significant for paroxysmal atrial fibrillation, sinus bradycardia, hypertension, hyperlipidemia, coronary artery disease, chronic kidney disease, and chronic lower extremity edema. Patient follows in the office with Dr. Vernon. We have been asked to see the patient in consultation for syncope and bradycardia. Patient examined at the bedside. Patient states he was feeling dizzy for the past couple days. He reports he had an episode where he passed out at home. He currently denies any chest pain or pressure. Denies SOB. Heart rate is in the 60s at time of examination revealing sinus bradycardia with 1st degree AV block. DIAGNOSTICS: - EKG reveals atrial fibrillation with slow ventricular rate - Laboratory data: WBC 5.2. Hemoglobin 12.2. Platelet count 191. Sodium 139. Potassium 4.1. BUN 12. Creatinine 1.41. Troponin 0.043. proBNP 1170. TSH 5.050. Free T 41.10 - Current home cardiac medications include Eliquis 2.5 mg twice a day, Lipitor 40 mg daily, midodrine 5 mg twice a day - Most recent echocardiogram obtained in May 2022 revealing normal EF, mild to moderate MR, and aortic sclerosis - Patient underwent event monitor in May 2024 revealing sinus bradycardia with second-degree AV block type I - Cardiac catheterization history: April 2024 revealing minimal CAD REVIEW OF SYSTEMS: At the time of my exam: CONSTITUTIONAL: Denies fever or chills. HEENT: Denies blurred vision, vision changes, or eye pain. Denies hemoptysis CARDIOVASCULAR: Denies chest pain. Denies orthopnea. Denies PND. Denies palpitations RESPIRATORY: Denies shortness of breath. GASTROINTESTINAL: Denies abdominal pain. Denies nausea or vomiting. HEMATOLOGIC: Denies bleeding disorders. GENITOURINARY: Denies any blood in urine. SKIN: Denies pruitis. Denies rash. PHYSICAL EXAM: VITAL SIGNS: Reviewed. GENERAL: Well-developed in no acute distress. HEENT: Head is normocephalic. Pupils are equal, round. Sclerae anicteric. Mucous membranes of the mouth are moist. Neck supple. No JVD or thyromegaly LUNGS: Respirations even and unlabored. Lungs essentially clear to auscultation bilaterally. HEART: Regular rate and rhythm. S1 and S2 heard. ABDOMEN: Soft. Nondistended. Nontender. EXTREMITIES: Normal range of motion. No clubbing or cyanosis. Peripheral pulses intact. No lower extremity edema NEUROLOGIC: Awake and alert. Oriented x 3. ASSESSMENT: Syncope Paroxysmal atrial fibrillation History of sinus bradycardia History of second-degree AV block type I Hypertension Hyperlipidemia Minimal coronary artery disease per cath in 04/2024 Chronic kidney disease, baseline 1.2-1.4 Diabetes Minimally elevated troponin, secondary to poor renal clearance, no evidence of myocardial injury or ischemia Chronic lower extremity edema PLAN: Resume Eliquis. Increase dosage to 5mg BID for appropriate thromboembolic protection Continue Lipitor Discontinue Midodrine. Continue to monitor blood pressures Obtain 2D echo to assess cardiac structure and function Obtain chest x-ray Continue telemetry monitoring Evaluate patient for chronotropic incompetence Discussed possibility of PPM with patient. Patient is declining PPM at this time. Will consider event monitor at discharge Further recommendations pending patient course Nurse practitioner note has been reviewed by physician. Signing provider agrees with the documented findings, assessment, and plan of care documented by [employer] as a scribe. Past Medical History Past Medical History: Diabetes Mellitus History of Any Multi-Drug Resistant Organisms: None Reported Past Surgical History: No Surgical Hx Reported Past Psychological History: No Psychological Hx Reported Smoking Status: Never smoker Past Alcohol Use History: None Reported Past Drug Use History: None Reported Medications and Allergies Home Medications Medication Instructions Recorded Confirmed Type Atorvastatin [Lipitor] 40 mg PO DAILY 11/20/20 11/19/24 History Cariprazine HCl [Vraylar] 3 mg PO DAILY 11/20/20 11/19/24 History Cholecalciferol (Vitamin D3) 125 mcg PO DAILY 11/20/20 11/19/24 History [Vitamin D3 (5000 Iu)] Ferrous Sulfate [Iron (65 MG 325 mg PO DAILY 11/20/20 11/19/24 History Elemental)] Gabapentin 300 mg PO DAILY 11/20/20 11/19/24 History Glimepiride [Amaryl] 8 mg PO DAILY 11/20/20 11/19/24 History L.acidoph,Paracasei, B.lactis 1 cap PO DAILY 11/20/20 11/19/24 History [Probiotic] Multivitamins, Thera [Multivitamin 1 tab PO DAILY 11/20/20 11/19/24 History (formulary)] Tamsulosin [Flomax] 0.4 mg PO BID 11/20/20 11/19/24 History buPROPion XL [Wellbutrin XL] 150 mg PO DAILY 11/20/20 11/19/24 History Pentoxifylline [TRENtal] 400 mg PO AC-TID 05/13/24 11/19/24 History Pioglitazone [Actos] 30 mg PO DAILY 05/13/24 11/19/24 History Apixaban [Eliquis] 2.5 mg PO BID 11/19/24 11/19/24 History Benzonatate [Tessalon Perle] 200 mg PO TID PRN 11/19/24 11/19/24 History Cyanocobalamin (Vitamin B-12) 2,000 mcg PO DAILY 11/19/24 11/19/24 History [Vitamin B-12] Folic Acid 1 mg PO DAILY 11/19/24 11/19/24 History Gabapentin [Neurontin] 600 mg PO HS 11/19/24 11/19/24 History Linagliptin [Tradjenta] 5 mg PO DAILY 11/19/24 11/19/24 History Midodrine [ProAmatine] 5 mg PO AC-BID 11/19/24 11/19/24 History Pantoprazole [Protonix] 40 mg PO BID 11/19/24 11/19/24 History metFORMIN HCL [Glucophage] 1,000 mg PO BID 11/19/24 11/19/24 History Allergies Allergy/AdvReac Type Severity Reaction Status Date / Time No Known Allergies Allergy Verified 11/19/24 16:35 Physical Exam Vitals: Vital Signs Temp Pulse Resp BP Pulse Ox 11/20/24 07:41 98 F 48 L 20 169/77 97 11/20/24 04:00 43 L 16 147/76 96 11/20/24 02:00 43 L 16 127/67 97 11/20/24 01:00 57 L 18 125/68 97 11/19/24 23:00 54 L 18 132/69 97 11/19/24 22:00 52 L 17 133/67 94 L 11/19/24 20:00 51 L 17 133/69 98 11/19/24 19:45 97.9 F 55 L 18 123/69 97 11/19/24 18:07 97.7 F 64 18 167/74 96 11/19/24 16:00 97.8 F 45 L 18 138/99 97 11/19/24 15:23 41 L 18 144/78 95 11/19/24 14:16 60 18 108/65 98 11/19/24 13:45 60 18 124/65 97 11/19/24 13:29 98.1 F 49 L 18 102/62 97 Intake and Output 11/19/24 11/20/24 11/20/24 22:59 06:59 14:59 Other: Weight 83.461 kg Results 11/20/24 10:28 11/19/24 13:37 Cardiac Enzymes 11/19/24 11/19/24 Range/Units 13:37 13:37 AST 23 (17-59) U/L Troponin I 0.043 H* (0.000-0.034) ng/mL Coagulation 11/19/24 Range/Units 13:37 PT 11.4 (10.0-12.5) sec APTT 23.9 (22.0-30.0) sec CBC 11/19/24 Range/Units 13:37 WBC 5.2 (3.8-10.6) k/uL RBC 4.32 (4.30-5.90) m/uL Hgb 12.2 L (13.0-17.5) gm/dL Hct 38.4 L (39.0-53.0) % Plt Count 191 (150-450) k/uL Comprehensive Metabolic Panel 11/19/24 Range/Units 13:37 Sodium 139 (137-145) mmol/L Potassium 4.1 (3.5-5.1) mmol/L Chloride 104 (98-107) mmol/L Carbon Dioxide 28 (22-30) mmol/L BUN 12 (9-20) mg/dL Creatinine 1.41 H (0.66-1.25) mg/dL Glucose 177 H (74-99) mg/dL Calcium 9.3 (8.4-10.2) mg/dL AST 23 (17-59) U/L ALT 10 (4-49) U/L Alkaline Phosphatase 50 (38-126) U/L Total Protein 7.2 (6.3-8.2) g/dL Albumin 4.2 (3.5-5.0) g/dL Current Medications Generic Name Dose Route Start Last Admin Trade Name Freq PRN Reason Stop Dose Admin Sodium Chloride 1,000 mls @ 75 mls/hr 11/19/24 15:15 11/20/24 04:50 Saline 0.9% IV 75 mls/hr .[id number] OLLIE Administration Naloxone HCl 0.2 mg 11/19/24 15:13 Naloxone 0.4 Mg/Ml 1 Ml Vial IV Q2M PRN Opioid Reversal Ondansetron HCl 4 mg 11/19/24 15:13 Ondansetron 4 Mg/2 Ml Vial IVP Q8HR PRN Nausea And Vomiting Intake and Output 11/19/24 11/20/24 11/20/24 22:59 06:59 14:59 Other: Weight 83.461 kg 11/19/24 13:37 11/19/24 13:37
[2024-11-20 11:20] LABS: ALT 11 U/L (4-49); AST 20 U/L (17-59); African American GFR (CKD) 59 (>60 ml/min/1.73 sqM); Albumin 3.8 g/dL (3.5-5.0); Alkaline Phosphatase 49 U/L (38-126); Anion Gap 9 mmol/L; Blood Urea Nitrogen 13 mg/dL (9-20); Calcium 9.5 mg/dL (8.4-10.2); Carbon Dioxide 25 mmol/L (22-30); Chloride 105 mmol/L (98-107); Glucose 141 mg/dL (74-99); Magnesium 1.8 mg/dL (1.6-2.3); Non-African American GFR(CKD) 51 (>60 ml/min/1.73 sqM); Phosphorus 3.8 mg/dL (2.5-4.5); Sodium 139 mmol/L (137-145); Total Bilirubin 0.6 mg/dL (0.2-1.3); Total Protein 6.6 g/dL (6.3-8.2)
--- NOTE | 2024-11-20 11:37 | CA ---
Transthoracic Echo Report Name: David Cavanaugh Age: 84 Gender: M : 1940 Exam Date: 11/20/2024 09:43 Exam Location: [facility] Ht (in): 65 Wt (lb): 184 Ordering Physician: Jamila Carter Attending/Referring Phys: [id number], Raul [employer] Lizeth Carpio RDCS Procedure CPT: Indications: LV function, syncope, bradycardia Cardiac Hx: Technical Quality: Good Contrast 1: Total Dose (mL): Contrast 2: Total Dose (mL): MEASUREMENTS (Male / Female) Normal Values 2D ECHO LV Diastolic Diameter PLAX 5.3 cm 4.2 - 5.9 / 3.9 - 5.3 cm LV Systolic Diameter PLAX 3.7 cm IVS Diastolic Thickness 1.3 cm 0.6 - 1.0 / 0.6 - 0.9 cm LVPW Diastolic Thickness 1.3 cm 0.6 - 1.0 / 0.6 - 0.9 cm LV Relative Wall Thickness 0.5 RV Internal Dim ED PLAX 4.6 cm LVOT Diameter 2.5 cm LA Systolic Diameter LX 4.5 cm 3.0 - 4.0 / 2.7 - 3.8 cm LV Diastolic Volume MOD 4C 135.9 cm??? LV Systolic Volume MOD 4C 59.1 cm??? LV Ejection Fraction MOD 4C 56.5 % LV Cardiac Index MOD 4C 2749.7 cm???/min???m??? LV Diastolic Length 4C 9.3 cm LV Systolic Length 4C 7.5 cm LV Diastolic Volume MOD 2C 120.8 cm??? LV Systolic Volume MOD 2C 35.9 cm??? LV Ejection Fraction MOD 2C 70.3 % LV Cardiac Index MOD 2C 3040.8 cm???/min???m??? LV Diastolic Length 2C 8.3 cm LV Systolic Length 2C 7.1 cm M-MODE Aortic Root Diameter MM 3.3 cm DOPPLER AV Peak Velocity 219.2 cm/s AV Peak Gradient 24.4 mmHg AV Mean Velocity 166.8 cm/s AV Mean Gradient 12.0 mmHg AV Velocity Time Integral 63.9 cm AI Peak Velocity 295.4 cm/s AI Peak Gradient 34.9 mmHg AI Pressure Half Time 1573.2 ms LVOT Peak Velocity 91.0 cm/s LVOT Peak Gradient 3.3 mmHg LVOT Velocity Time Integral 27.9 cm LVOT Stroke Volume 132.7 cm??? LVOT Stroke Volume Index 69.5 ml/m??? LVOT Cardiac Index 4750.3 cm???/min???m??? AV Area Cont Eq vti 2.1 cm??? AV Area Cont Eq pk 2.0 cm??? Mitral E Point Velocity 96.8 cm/s Mitral A Point Velocity 104.4 cm/s Mitral E to A Ratio 0.9 MV Deceleration Time 198.6 ms MV E' Velocity 7.7 cm/s Mitral E to MV E' Ratio 12.6 TR Peak Velocity 319.9 cm/s TR Peak Gradient 40.9 mmHg Right Ventricular Systolic Press 50.9 mmHg FINDINGS Left Ventricle Left ventricular ejection fraction is estimated at 55-60 %. Left ventricular cavity size normal. Mildly increased septal wall thickness. Normal left ventricular wall motion. Right Ventricle Severe right ventricular dilatation. Moderate pulmonary hypertension. Right ventricular systolic pressure estimated at 51 mm hg. Right Atrium Normal right atrial size. No right atrial thrombus or mass seen. Left Atrium Mildly increased left atrial diameter. No left atrial thrombus or mass present. Mitral Valve Structurally normal mitral valve. No evidence for mitral valve prolapse. No mitral stenosis. Mild mitral regurgitation. Aortic Valve Trileaflet aortic valve. Aortic valve sclerosis. Mild aortic stenosis with a peak gradient of 24 mmHg and a mean gradient of 12 mmHg. Mild aortic regurgitation. Tricuspid Valve Structurally normal tricuspid valve. Mild tricuspid regurgitation. Pulmonic Valve Structurally normal pulmonic valve. No pulmonic regurgitation. Pericardium No pericardial effusion. Aorta Normal size aortic root and proximal ascending aorta. CONCLUSIONS Indication for the procedure: Bradycardia and syncope Mild LVH with preserved systolic function Right ventricular enlargement with moderate pulmonary hypertension Biatrial enlargement Very mild aortic stenosis, calcific Previewed by: Dr. Israel Roy MD (Electronically Signed) Final Date: 20 November 2024 11:36
[2024-11-20] MEDS: PENTOXIFYLLINE 400 MG TABLET.ER PO SCH (12:54)
[2024-11-20] MEDS: INSULIN LISPRO (HumaLOG) 100 UNIT/ML 10 mL VL SQ SCH (14:07)
[2024-11-20 16:39] LABS: Glucose,Whole Blood 135 mg/dL (70-110)
[2024-11-20 20:02] LABS: Glucose,Whole Blood 147 mg/dL (70-110)
--- NOTE | 2024-11-20 21:34 | HP ---
HISTORY AND PHYSICAL CHIEF COMPLAINT: Syncope and bradycardia. HISTORY OF PRESENT ILLNESS: This is an 84-year-old gentleman with a past medical history of multiple medical problems including sinus bradycardia and first-degree AV block. Apparently, slated to have a pacemaker implantation, which the patient refused and currently the patient had episodes of syncope and the patient was taken to [facility], and admitted for further evaluation and treatment. The heart rate is anywhere between 50 and 60 at this time. 2D echo showed right ventricular enlargement with moderate pulmonary hypertension. There is no history of any fever, rigors, or chills at this time. PAST MEDICAL HISTORY: Reviewed include diabetes mellitus type 2. Rest of the history and rest of the chart is also reviewed. HOME MEDICATIONS: Reviewed include metformin, doses and rest of medications noted. ALLERGIES: None. FAMILY HISTORY: No history of heart disease or strokes in the family. SOCIAL HISTORY: No history of smoking or alcohol. REVIEW OF SYSTEMS: Fourteen-point review of systems is negative except as mentioned earlier. PHYSICAL EXAMINATION: VITAL SIGNS: Pulse is 52, blood pressure 140/59, respirations 18. HEENT: Conjunctivae normal. NECK: No JVD. CARDIOVASCULAR: S1, S2. RESPIRATIONS: Breath sounds diminished at the bases. ABDOMEN: Soft, nontender. LEGS: No edema. NERVOUS SYSTEM: Nonfocal. LABORATORY DATA: Creatinine 1.28. Troponin 0.043. ASSESSMENT: 1. Syncope and bradycardia for evaluation. 2. Paroxysmal atrial fibrillation. 3. History of sinus bradycardia. 4. History of second-degree atrioventricular block type 1. 5. Hypertension. 6. Hyperlipidemia. 7. Mild coronary artery disease in the recent cardiac cath. 8. Troponin 0.043. Rule out acute kvm-[id number]-hczipdh-elevation myocardial infarction. 9. Mild acute renal failure. 10.Diabetes mellitus, type 2. RECOMMENDATIONS AND DISCUSSION: This is an 84-year-old gentleman, who presented with multiple complex medical issues, we will monitor the patient closely. Continue the telemetry. We will recommend to continue with Eliquis. The patient might be willing for pacemaker at this time. We will continue to monitor. Cardiology. Guarded prognosis. Further recommendations to follow. MMODL / IJN: [id number] /
[2024-11-21 05:57] LABS: Glucose,Whole Blood 101 mg/dL (70-110)
[2024-11-21 09:09] VITALS: RESP 20
[2024-11-21 11:44] LABS: Glucose,Whole Blood 204 mg/dL (70-110)
[2024-11-21 11:46] VITALS: BP 147/69; PULSE 64; TEMP 97.5
--- NOTE | 2024-11-21 13:07 | P.PN ---
Subjective HISTORY OF PRESENT ILLNESS: This is a 84-year-old male with a past medical history significant for paroxysmal atrial fibrillation, sinus bradycardia, hypertension, hyperlipidemia, coronary artery disease, chronic kidney disease, and chronic lower extremity edema. Patient follows in the office with Dr. Vernon. We have been asked to see the patient in consultation for syncope and bradycardia. Patient examined at the bedside. Patient states he was feeling dizzy for the past couple days. He reports he had an episode where he passed out at home. He currently denies any chest pain or pressure. Denies SOB. Heart rate is in the 60s at time of exam ination revealing sinus bradycardia with 1st degree AV block. DIAGNOSTICS: - EKG reveals atrial fibrillation with slow ventricular rate - Laboratory data: WBC 5.2. Hemoglobin 12.2. Platelet count 191. Sodium 139. Potassium 4.1. BUN 12. Creatinine 1.41. Troponin 0.043. proBNP 1170. TSH 5.050. Free T 41.10 - Current home cardiac medications include Eliquis 2.5 mg twice a day, Lipitor 40 mg daily, midodrine 5 mg twice a day - Most recent echocardiogram obtained in May 2022 revealing normal EF, mild to moderate MR, and aortic sclerosis - Patient underwent event monitor in May 2024 revealing sinus bradycardia with second-degree AV block type I - Cardiac catheterization history: April 2024 revealing minimal CAD 11/21/2024 Patient examined this morning at the bedside. Patient currently denies chest pain or pressure. Denies shortness of breath. Echocardiogram completed r evealing ejection fraction 55 to 60%, moderate pulmonary hypertension, mild aortic stenosis with peak gradient 24 mmHg and mean gradient 12 mmHg, mild AI, mild TR. Patient ambulated with nursing today approximately 100 feet with heart rate increasing into the 70s and 80s. Patient denied having any symptoms. PHYSICAL EXAM: VITAL SIGNS: Reviewed. GENERAL: Well-developed in no acute distress. HEENT: Head is normocephalic. Pupils are equal, round. Sclerae anicteric. Mucous membranes of the mouth are moist. Neck supple. No JVD or thyromegaly LUNGS: Respirations even and unlabored. Lungs essentially clear to auscultation bilaterally. HEART: Regular rate and rhythm. S1 and S2 heard. ABDOMEN: Soft. Nondistended. Nontender. EXTREMITIES: Normal range of motion. No clubbing or cyanosis. Peripheral pulses intact. No lower extremity edema NEUROLOGIC: Awake and alert. Oriented x 3. ASSESSMENT: Syncope Paroxysmal atrial fibrillation History of sinus bradycardia History of second-degree AV block type I Hypertension Hyperlipidemia Minimal coronary artery disease per cath in 04/2024 Chronic kidney disease, baseline 1.2-1.4 Diabetes Minimally elevated troponin, secondary to poor renal clearance, no evidence of myocardial injury or ischemia Chronic lower extremity edema PLAN: Continue Eliquis and Lipitor 7-day Holter monitor to be placed today No plans for pacemaker at this time Patient may be discharged home today and follow-up in the office Nurse practitioner note has been reviewed by physician. Signing provider agrees with the documented findings, assessment, and plan of care documented by CONVENTIONAL MACHINIST as a scribe. Objective - Vital Signs Vital signs: Vital Signs Temp 97.5 F L 11/21/24 11:45 Pulse 64 11/21/24 11:45 Resp 20 11/21/24 11:45 BP 147/69 11/21/24 11:45 Pulse Ox 98 11/21/24 11:45 FiO2 Intake & Output 11/20/24 11/21/24 11/21/24 18:59 06:59 18:59 Intake Total 750 Output Total 200 Balance 550 Weight 83.461 kg 83.1 kg Intake: IV 750 Sodium Chloride 0.9% 1, 750 000 ml @ 75 mls/hr IV . [id number] OLLIE Rx#:[id number] Output: Gastric Drainage 200 Other: Voiding Method Toilet # Voids 1 1 1 - Labs CBC & Chem 7: 11/20/24 10:28 11/20/24 10:28 Labs: Abnormal Lab Results - Last 24 Hours (Table) 11/20/24 11/20/24 11/21/24 Range/Units 16:37 19:59 06:54 POC Glucose (mg/dL) 135 H 147 H (70-110) mg/dL Hemoglobin A1c 7.1 H (<=6.0) % 11/21/24 Range/Units 11:43 POC Glucose (mg/dL) 204 H (70-110) mg/dL Hemoglobin A1c (<=6.0) %
--- NOTE | 2024-11-24 12:00 | P.DS ---
Providers Date of admission: 11/19/24 15:15 Expected date of discharge: 11/21/24 Attending physician: Anabel Sharma Consults: 11/19/24 15:13 Consult Physician Routine Consulting Provider: Kelly Hackett Consult Reason/Comments: syncope,caryn Do you want consulting provider notified?: Yes Primary care physician: Abi England Hospital Course: Final diagnosis Syncope and bradycardia for evaluation Paroxysmal atrial fibrillation History of sinus bradycardia History of second-degree AV block type I Hypertension Hyperlipidemia Mild coronary artery disease with recent cardiac catheterization Troponin 0.043, ruled out NSTEMI per cardiology Mild acute renal failure Diabetes mellitus, type II Obesity with a BMI 30.5 GI prophylaxis DVT prophylaxis Full code Discharge disposition Patient is being discharged in a stable condition with guarded prognosis to home. Patient will follow-up with Dr. England in the outpatient setting upon discharge. Patient is to continue with current medications and close outpatient follow-up with cardiology as scheduled. Patient will have a 7-day event monitor on discharge. Total time taken is greater than 35 minutes. Hospital course This is a 84-year-old male who was recently admitted with sinus bradycardia and first-degree AV block. Patient was scheduled to have a pacemaker implantation in the outpatient setting and patient had refused. Patient per has been having episodes of syncope and falling and came to the hospital for further evaluation. Patient was evaluated by cardiology showing improvements in heart rate with no further episodes with adjustments to medications. No plans of immediate pacemaker at this time recommending maximizing medical management and event monitor on discharge with close outpatient follow-up in 1 week. Patient has been cleared by consultations and would like to go home. Please refer to consultation notes for further HPI. Currently no reports of chest pain, shortness of breath, or palpitations. Patient is afebrile. No reports of nausea or vomiting and patient is tolerating diet. Patient will be discharged home today. Guarded prognosis and high risk for readmissions given comor bidities. Physical exam: Gen: This is a 84-year-old male who is awake, alert and oriented x 3, well- developed, elderly appearing, obese HEENT: Head is atraumatic, normocephalic. Pupils equal, round. Sclerae is anicteric. NECK: Supple. No JVD. No lymphadenopathy. No thyromegaly. LUNGS: Diminished breath sounds bilaterally otherwise clear to auscultation. No wheezes or rhonchi. No intercostal retractions. HEART: S1, S2 are muffled ABDOMEN: Soft. Obese. Bowel sounds are present. No masses. No tenderness. EXTREMITIES: No pedal edema. No calf tenderness. NEUROLOGICAL: Patient is awake, alert and oriented x3. Cranial nerves 2 through 12 are grossly intact. Please refer to medication reconciliation sheet for a list of medications. The impression and plan of care has been dictated by Cha Bocanegra, Nurse Practitioner as directed. Dr. Zachary MD I have performed a history and examination and MDM of this patient, discussed the same with the dictator, and agree with the dictator's assessment and plan as written ,documented as a scribe. Based on total visit time, I have performed more than 50% of the visit. Patient Condition at Discharge: Fair Plan - Discharge Summary Discharge Rx Participant: No New Discharge Prescriptions: New Apixaban [Eliquis] 5 mg PO BID #60 tab Continue Tamsulosin [Flomax] 0.4 mg PO BID Atorvastatin [Lipitor] 40 mg PO DAILY Cariprazine HCl [Vraylar] 3 mg PO DAILY Pioglitazone [Actos] 30 mg PO DAILY Benzonatate [Tessalon Perle] 200 mg PO TID PRN PRN Reason: Cough Cyanocobalamin (Vitamin B-12) [Vitamin B-12] 2,000 mcg PO DAILY Gabapentin [Neurontin] 600 mg PO HS Pantoprazole [Protonix] 40 mg PO BID L.acidoph,Paracasei, B.lactis [Probiotic] 1 cap PO DAILY Multivitamins, Thera [Multivitamin (formulary)] 1 tab PO DAILY Gabapentin 300 mg PO DAILY Cholecalciferol (Vitamin D3) [Vitamin D3 (5000 Iu)] 125 mcg PO DAILY buPROPion XL [Wellbutrin XL] 150 mg PO DAILY Glimepiride [Amaryl] 8 mg PO DAILY Ferrous Sulfate [Iron (65 MG Elemental)] 325 mg PO DAILY Pentoxifylline [TRENtal] 400 mg PO AC-TID Folic Acid 1 mg PO DAILY Linagliptin [Tradjenta] 5 mg PO DAILY metFORMIN HCL [Glucophage] 1,000 mg PO BID Changed Midodrine [ProAmatine] 5 mg PO AC-BID PRN #0 caplet PRN Reason: Hypotension Discontinued Apixaban [Eliquis] 2.5 mg PO BID Discharge Medication List Atorvastatin [Lipitor] 40 mg PO DAILY 11/20/20 [History] Cariprazine HCl [Vraylar] 3 mg PO DAILY 11/20/20 [History] Cholecalciferol (Vitamin D3) [Vitamin D3 (5000 Iu)] 125 mcg PO DAILY 11/20/20 [History] Ferrous Sulfate [Iron (65 MG Elemental)] 325 mg PO DAILY 11/20/20 [History] Gabapentin 300 mg PO DAILY 11/20/20 [History] Glimepiride [Amaryl] 8 mg PO DAILY 11/20/20 [History] L.acidoph,Paracasei, B.lactis [Probiotic] 1 cap PO DAILY 11/20/20 [History] Multivitamins, Thera [Multivitamin (formulary)] 1 tab PO DAILY 11/20/20 [History] Tamsulosin [Flomax] 0.4 mg PO BID 11/20/20 [History] buPROPion XL [Wellbutrin XL] 150 mg PO DAILY 11/20/20 [History] Pentoxifylline [TRENtal] 400 mg PO AC-TID 05/13/24 [History] Pioglitazone [Actos] 30 mg PO DAILY 05/13/24 [History] Benzonatate [Tessalon Perle] 200 mg PO TID PRN 11/19/24 [History] Cyanocobalamin (Vitamin B-12) [Vitamin B-12] 2,000 mcg PO DAILY 11/19/24 [History] Folic Acid 1 mg PO DAILY 11/19/24 [History] Gabapentin [Neurontin] 600 mg PO HS 11/19/24 [History] Linagliptin [Tradjenta] 5 mg PO DAILY 11/19/24 [History] Pantoprazole [Protonix] 40 mg PO BID 11/19/24 [History] metFORMIN HCL [Glucophage] 1,000 mg PO BID 11/19/24 [History] Apixaban [Eliquis] 5 mg PO BID #60 tab 11/21/24 [Rx] Midodrine [ProAmatine] 5 mg PO AC-BID PRN #0 caplet 11/21/24 [Rx] Follow up Appointment(s)/Referral(s): Davis Vernon MD [STAFF PHYSICIAN] - 1 Week (office will call you with an appointment date and time) Abi England DO [Primary Care Provider] - 1-2 days Activity/Diet/Wound Care/Special Instructions: Patient must have 7-day event monitor hooked up prior to discharge Activity limited until follow-up Follow-up with cardiology in 1 week as discussed Continue taking medications as prescribed Follow-up primary care provider on discharge Discharge Disposition: HOME SELF-CARE
--- NOTE | 2024-11-25 21:15 | CDI ---
Documentation Clarification Form Date: From: Doug Calloway Phone: Admit Date: 11/19/2024 03:15:00 PM Patient Name: David Cavanaugh Visit Number: [id number] Discharge Date: 11/21/2024 03:42:00 PM ATTENTION: The Clinical Documentation Specialists (CDI) and [facility] Coding Staff appreciate your assistance in clarifying documentation. Please respond to the clarification below the line at the bottom and electronically sign. The CDI & [facility] Coding staff will review the response and follow-up if needed. Please note: Queries are made part of the Legal Health Record. If you have any questions, please contact the author of this message via ITS. Doctor/Provider: Anabel Sharma Unspecified CKD is documented 11/20/24 Consult . Additional clarification regarding the stage of CKD is requested. Patients Historical BUN/CR/GFR Clinical Indicators: Est GFR (CKD-EPI)AfAm 52 (>60 ml/min/1.73 sqM) Est GFR (CKD-EPI)NonAf 45 (>60 ml/min/1.73 sqM) Est GFR (CKD-EPI)AfAm (>60 ml/min/1.73 sqM) Est GFR (CKD-EPI)NonAf (>60 ml/min/1.73 sqM) Current BUN/CR/GFR: CR 1.41 H (0.66-1.25) mg/dL 11/19/24-11/21/24 Treatment: Consults Please clarify the stage of the CKD, if known: [ ] CKD Stage 1 [ ] CKD Stage 2 [ ] CKD Stage 3 [ ] CKD Stage 3a [ ] CKD Stage 3b [ ] CKD Stage 4 [ ] Other, please specify [ ] Unable to determine Reference: [employer] Stage 1 eGFR = 90 and kidney damage for =3 months Stage 2 eGFR 60-89 and kidney damage for =3 months Stage 3a eGFR 45-59 and kidney damage for =3 months Stage 3b eGFR 30-44 and kidney damage for =3 months Stage 4 eGFR 15-29 r and kidney damage for =3 months Stage 5 eGFR <15 and kidney damage for =3 months CKD Stage 2 MTDD
== END 2024-11-21 15:42 | disposition home or self-care (01) | DRG 309 ==
LOC: EC 13:26 → 3SCARD 15:15
PROVIDERS: ADMIT Hospitalist; ATTEND Hospitalist
DX: R00.1 Bradycardia, unspecified (principal); N17.9 Acute kidney failure, unspecified; I27.20 Pulmonary hypertension, unspecified; E11.22 Type 2 diabetes mellitus with diabetic chronic kidney disease; I12.9 Hypertensive chronic kidney disease with stage 1 through stage 4 chronic kidney disease, or unspecified chronic kidney disease; I48.0 Paroxysmal atrial fibrillation; I49.5 Sick sinus syndrome; N18.2 Chronic kidney disease, stage 2 (mild); I44.0 Atrioventricular block, first degree; I25.10 Atherosclerotic heart disease of native coronary artery without angina pectoris; Z79.01 Long term (current) use of anticoagulants; E78.5 Hyperlipidemia, unspecified; Z79.82 Long term (current) use of aspirin; Z79.84 Long term (current) use of oral hypoglycemic drugs; Z79.899 Other long term (current) drug therapy
CPT/HCPCS: 36415; 71046; 80053; 83036; 83735; 83880; 84100; 84439; 84443; 84484; 85025; 85610; 85730; 93005; 93225; 93306; 96361; 96374; 99291

== ENCOUNTER 2024-12-13 08:13 | Inpatient (IN) | payer MEDICARE ==
--- NOTE | 2024-12-13 08:31 | ED ---
General Adult HPI - General Stated complaint: Weakness Time Seen by Provider: 12/13/24 08:19 Source: patient, EMS, RN notes reviewed Mode of arrival: EMS Limitations: no limitations - History of Present Illness Initial comments: Patient is an 84-year-old male present to the emergency department with concerns with weakness. Onset of symptoms was this morning. Patient did have a fall and struck his head 2 days ago however only had mild lightheadedness since that time. Patient had difficulty getting out of bed. Patient is unclear if he could make it to the restroom by himself today. No history of similar symptoms previously. No isolated area of weakness. Patient denies confusion. - Related Data Home Medications Medication Instructions Recorded Confirmed Atorvastatin [Lipitor] 40 mg PO DAILY 11/20/20 12/13/24 Cariprazine HCl [Vraylar] 3 mg PO DAILY 11/20/20 12/13/24 Cholecalciferol (Vitamin D3) 125 mcg PO DAILY 11/20/20 12/13/24 [Vitamin D3 (5000 Iu)] Ferrous Sulfate [Iron (65 MG 325 mg PO DAILY 11/20/20 12/13/24 Elemental)] Gabapentin 300 mg PO DAILY 11/20/20 12/13/24 Glimepiride [Amaryl] 8 mg PO DAILY PRN 11/20/20 12/13/24 L.acidoph,Nessa Cortez.lactis 1 cap PO DAILY 11/20/20 12/13/24 [Probiotic] Multivitamins, Thera [Multivitamin 1 tab PO DAILY 11/20/20 12/13/24 (formulary)] Tamsulosin [Flomax] 0.4 mg PO BID 11/20/20 12/13/24 buPROPion XL [Wellbutrin XL] 150 mg PO DAILY 11/20/20 12/13/24 Pentoxifylline [TRENtal] 400 mg PO AC-TID 05/13/24 12/13/24 Pioglitazone [Actos] 30 mg PO DAILY 05/13/24 12/13/24 Benzonatate [Tessalon Perle] 200 mg PO TID PRN 11/19/24 12/13/24 Cyanocobalamin (Vitamin B-12) 2,000 mcg PO DAILY 11/19/24 12/13/24 [Vitamin B-12] Folic Acid 1 mg PO DAILY 11/19/24 12/13/24 Gabapentin [Neurontin] 600 mg PO HS 11/19/24 12/13/24 Linagliptin [Tradjenta] 5 mg PO DAILY 11/19/24 12/13/24 Pantoprazole [Protonix] 40 mg PO BID 11/19/24 12/13/24 metFORMIN HCL [Glucophage] 1,000 mg PO BID PRN 11/19/24 12/13/24 Active Mind(Otc) 1 tab PO DAILY 12/13/24 12/13/24 Furosemide [Lasix] 40 mg PO DAILY 12/13/24 12/13/24 Icaps 1 cap PO DAILY 12/13/24 12/13/24 Magnesium 30mg 30 mg PO DAILY 12/13/24 12/13/24 Vitamin B Complex 1 cap PO DAILY 12/13/24 12/13/24 Zinc Gluconate [Zinc] 50 mg PO DAILY 12/13/24 12/13/24 Previous Rx's Medication Instructions Recorded Apixaban [Eliquis] 5 mg PO BID #60 tab 11/21/24 Midodrine [ProAmatine] 5 mg PO AC-BID PRN #0 caplet 11/21/24 Allergies Allergy/AdvReac Type Severity Reaction Status Date / Time No Known Allergies Allergy Verified 12/13/24 08:28 Review of Systems ROS Statement: Those systems with pertinent positive or pertinent negative responses have been documented in the HPI. ROS Other: All systems not noted in ROS Statement are negative. Constitutional: Denies: fever Eyes: Denies: eye pain ENT: Denies: ear pain Respiratory: Denies: cough, dyspnea Cardiovascular: Denies: chest pain Endocrine: Denies: fatigue Gastrointestinal: Denies: abdominal pain Genitourinary: Denies: dysuria Musculoskeletal: Denies: back pain Skin: Denies: rash Neurological: Reports: as per HPI, weakness Past Medical History Past Medical History: Diabetes Mellitus History of Any Multi-Drug Resistant Organisms: None Reported Past Surgical History: No Surgical Hx Reported Past Psychological History: No Psychological Hx Reported General Exam Limitations: no limitations General appearance: alert, in no apparent distress Head exam: Present: normocephalic Eye exam: Present: normal appearance, PERRL, EOMI ENT exam: Present: normal oropharynx Neck exam: Present: normal inspection. Absent: tenderness, meningismus Respiratory exam: Present: normal lung sounds bilaterally Cardiovascular Exam: Present: regular rate, normal rhythm GI/Abdominal exam: Present: soft. Absent: tenderness Extremities exam: Present: normal inspection Neurological exam: Present: alert, oriented X3, CN II-XII intact. Absent: motor sensory deficit Expanded Neurological exam: Present: protecting the airway Patient oriented to: Present: person, place, time Speech: Present: fluid speech Cranial nerves: EOM's Intact: Normal Sensory exam: Upper Extremity Light Touch: Normal, Lower Extremity Light Touch: Normal Motor strength exam: RUE: 5, LUE: 5, RLE: 5, LLE: 5 Eye Response: (4) open spontaneously Motor Response: (6) obeys commands Verbal Response: (5) oriented Psychiatric exam: Present: normal affect, normal mood Skin exam: Present: normal color Course Vital Signs 12/13/24 12/13/24 08:15 11:19 Temperature 98.7 F Pulse Rate 70 62 Respiratory 18 18 Rate Blood Pressure 132/97 133/62 O2 Sat by Pulse 93 L 100 Oximetry EKG Findings - EKG Results: EKG: interpreted by GUZMAN (First-degree AV block at the FL of 299), sinus rhythm, normal axis, normal QRS, normal ST/T Medical Decision Making - Medical Decision Making Was pt. sent in by a medical professional or institution (MARIEL Pina, DIRECTOR NICU, urgent care, hospital, or [facility]...) When possible be specific @ -No Did you speak to anyone other than the patient for history (EMS, parent, family, police, friend...)? What history was obtained from this source @ -EMS helps provide history including Accu-Chek Did you review nursing and triage notes (agree or disagree)? Why? @ -I reviewed and agree with nursing and triage notes Were old charts reviewed (outside hosp., previous admission, EMS record, old EKG, old radiological studies, urgent care reports/EKG's, [facility] records)? Report findings @ -Previous renal function reviewed Differential Diagnosis (chest pain, altered mental status, abdominal pain women, abdominal pain men, vaginal bleeding, weakness, fever, dyspnea, syncope, headache, dizziness, GI bleed, back pain, seizure, CVA, palpatations, mental health, musculoskeletal)? @ -Differential Weakness: Hypoglycemia, shock, sepsis, hyponatremia, anemia, infection, SD, ETOH, adverse medicine reaction, overdose, stroke, this is not meant to be an all-inclusive list. EKG interpreted by me (3pts min.). @ -As above X-rays interpreted by me (1pt min.). @ -@@Chest x-ray shows right lower lobe infiltrate CT interpreted by me (1pt min.). @ -CT scan the brain without acute abnormality U/S interpreted by me (1pt. min.). @ -None done What testing was considered but not performed or refused? (CT, X-rays, U/S, labs)? Why? @ -None What meds were considered but not given or refused? Why? @ -None Did you discuss the management of the patient with other professionals (professionals i.e. , PA, DIRECTOR NICU, lab, RT, psych nurse, rn social services, screed person, teacher, fisheries technical officer, showcase maker)? Give summary @ -Case discussed with Dr. Bateman who will admit. Was smoking cessation discussed for >3mins.? @ -No Was critical care preformed (if so, how long)? @ -No Were there social determinants of health that impacted care today? How? (Homelessness, low income, unemployed, alcoholism, drug addiction, transportation, low edu. Level, literacy, decrease access to med. care, [facility], rehab)? @ -No Was there de-escalation of care discussed even if they declined (Discuss DNR or withdrawal of care, Hospice)? DNR status @ -Stage What co-morbidities impacted this encounter? (DM, HTN, Smoking, COPD, CAD, Cancer, CVA, ARF, Chemo, Hep., AIDS, mental health diagnosis, sleep apnea, morbid obesity)? @ -None Was patient admitted / discharged? Hospital course, mention meds given and route, prescriptions, significant lab abnormalities, going to OR and other pertinent info. @ -Patient presents with generalized weakness. Accu-Chek shows hypoglycemia, improved with diet. Patient is on several prolonged diabetic medications. In addition patient has new mild SWAPNIL as well as pneumonia. Pneumonia diagnosed at 1300. Patient will be admitted. Admission orders written. Undiagnosed new problem with uncertain prognosis? @ -No Drug Therapy requiring intensive monitoring for toxicity (Heparin, Nitro, Insulin, Cardizem)? @ -No Were any procedures done? @ -0 Diagnosis/symptom? @ -Pneumonia, SWAPNIL, hypoglycemia Acute, or Chronic, or Acute on Chronic? @ -. Acute, acute, acute Uncomplicated (without systemic symptoms) or Complicated (systemic symptoms)? @ - Side effects of treatment? @ -No Exacerbation, Progression, or Severe Exacerbation? @ -No Poses a threat to life or bodily function? How? (Chest pain, USA, SD, pneumonia, PE, COPD, DKA, ARF, appy, cholecystitis, CVA, Diverticulitis, Homicidal, Suicidal, threat to staff... and all critical care pts) @ -No - Lab Data Result diagrams: 12/13/24 08:28 12/13/24 08:28 Lab Results 12/13/24 12/13/24 12/13/24 Range/Units 08:28 08:28 08:28 WBC 9.57 (4.50-10.00) 10*3/uL RBC 3.50 L (4.40-5.60) 10*6/uL Hgb 10.1 L (13.0-17.0) g/dL Hct 30.3 L (39.6-50.0) % MCV 86.6 (80.0-97.0) fL MCH 28.9 (27.0-32.0) pg MCHC 33.3 (32.0-37.0) g/dL Plt Count 288 (140-440) 10*3/uL MPV 9.9 (9.5-12.2) fL Immature Gran % (Auto) 0.3 % Neutrophils % 75.4 % Lymphocytes % 12.4 % Monocytes % 9.7 % Eosinophils % 1.9 % Basophils % 0.3 % Immature Gran # 0.03 (0.00-0.04) 10*3/uL Neutrophils # 7.21 (1.80-7.70) 10*3/uL Lymphocytes # 1.19 (0.90-5.00) 10*3/uL Monocytes # 0.93 (0.20-1.00) 10*3/uL Eosinophils # 0.18 (0.04-0.35) 10*3/uL Basophils # 0.03 (0.00-0.10) 10*3/uL PT 10.8 (10.0-12.5) sec INR 1.0 (<1.2) APTT 28.7 (22.0-30.0) sec Sodium (137-145) mmol/L Potassium (3.5-5.1) mmol/L Chloride (98-107) mmol/L Carbon Dioxide (22-30) mmol/L Anion Gap mmol/L BUN (9-20) mg/dL Creatinine (0.66-1.25) mg/dL Est GFR (CKD-EPI)AfAm (>60 ml/min/1.73 sqM) Est GFR (CKD-EPI)NonAf (>60 ml/min/1.73 sqM) Glucose (74-99) mg/dL POC Glucose (mg/dL) (70-110) mg/dL POC Glu Core Paster ID Plasma Lactic Acid Sarabjit (0.7-2.0) mmol/L Calcium (8.4-10.2) mg/dL Magnesium (1.6-2.3) mg/dL Total Bilirubin (0.2-1.3) mg/dL AST (17-59) U/L ALT (4-49) U/L Alkaline Phosphatase (38-126) U/L Troponin I (0.000-0.034) ng/mL Total Protein (6.3-8.2) g/dL Albumin (3.5-5.0) g/dL Urine Color Colorless Urine Appearance Clear (Clear) Urine pH 6.5 (5.0-8.0) Ur Specific [place] 1.006 (1.001-1.035) Urine Protein Negative (Negative) Urine Glucose (UA) Negative (Negative) Urine Ketones Negative (Negative) Urine Blood Negative (Negative) Urine Nitrite Negative (Negative) Urine Bilirubin Negative (Negative) Urine Urobilinogen <2.0 (<2.0) mg/dL Ur Leukocyte Esterase Negative (Negative) 12/13/24 12/13/24 12/13/24 Range/Units 08:28 08:28 08:28 WBC (4.50-10.00) 10*3/uL RBC (4.40-5.60) 10*6/uL Hgb (13.0-17.0) g/dL Hct (39.6-50.0) % MCV (80.0-97.0) fL MCH (27.0-32.0) pg MCHC (32.0-37.0) g/dL Plt Count (140-440) 10*3/uL MPV (9.5-12.2) fL Immature Gran % (Auto) % Neutrophils % % Lymphocytes % % Monocytes % % Eosinophils % % Basophils % % Immature Gran # (0.00-0.04) 10*3/uL Neutrophils # (1.80-7.70) 10*3/uL Lymphocytes # (0.90-5.00) 10*3/uL Monocytes # (0.20-1.00) 10*3/uL Eosinophils # (0.04-0.35) 10*3/uL Basophils # (0.00-0.10) 10*3/uL PT (10.0-12.5) sec INR (<1.2) APTT (22.0-30.0) sec Sodium 131 L (137-145) mmol/L Potassium 4.6 (3.5-5.1) mmol/L Chloride 96 L (98-107) mmol/L Carbon Dioxide 26 (22-30) mmol/L Anion Gap 9 mmol/L BUN 31 H (9-20) mg/dL Creatinine 1.92 H (0.66-1.25) mg/dL Est GFR (CKD-EPI)AfAm 36 (>60 ml/min/1.73 sqM) Est GFR (CKD-EPI)NonAf 31 (>60 ml/min/1.73 sqM) Glucose 46 L* (74-99) mg/dL POC Glucose (mg/dL) (70-110) mg/dL POC Glu Core Paster ID Plasma Lactic Acid Sarabjit 1.2 (0.7-2.0) mmol/L Calcium 9.1 (8.4-10.2) mg/dL Magnesium 2.4 H (1.6-2.3) mg/dL Total Bilirubin 0.5 (0.2-1.3) mg/dL AST 28 (17-59) U/L ALT 19 (4-49) U/L Alkaline Phosphatase 55 (38-126) U/L Troponin I 0.024 (0.000-0.034) ng/mL Total Protein 7.0 (6.3-8.2) g/dL Albumin 4.1 (3.5-5.0) g/dL Urine Color Urine Appearance (Clear) Urine pH (5.0-8.0) Ur Specific [place] (1.001-1.035) Urine Protein (Negative) Urine Glucose (UA) (Negative) Urine Ketones (Negative) Urine Blood (Negative) Urine Nitrite (Negative) Urine Bilirubin (Negative) Urine Urobilinogen (<2.0) mg/dL Ur Leukocyte Esterase (Negative) 12/13/24 12/13/24 12/13/24 Range/Units 09:30 10:07 11:16 WBC (4.50-10.00) 10*3/uL RBC (4.40-5.60) 10*6/uL Hgb (13.0-17.0) g/dL Hct (39.6-50.0) % MCV (80.0-97.0) fL MCH (27.0-32.0) pg MCHC (32.0-37.0) g/dL Plt Count (140-440) 10*3/uL MPV (9.5-12.2) fL Immature Gran % (Auto) % Neutrophils % % Lymphocytes % % Monocytes % % Eosinophils % % Basophils % % Immature Gran # (0.00-0.04) 10*3/uL Neutrophils # (1.80-7.70) 10*3/uL Lymphocytes # (0.90-5.00) 10*3/uL Monocytes # (0.20-1.00) 10*3/uL Eosinophils # (0.04-0.35) 10*3/uL Basophils # (0.00-0.10) 10*3/uL PT (10.0-12.5) sec INR (<1.2) APTT (22.0-30.0) sec Sodium (137-145) mmol/L Potassium (3.5-5.1) mmol/L Chloride (98-107) mmol/L Carbon Dioxide (22-30) mmol/L Anion Gap mmol/L BUN (9-20) mg/dL Creatinine (0.66-1.25) mg/dL Est GFR (CKD-EPI)AfAm (>60 ml/min/1.73 sqM) Est GFR (CKD-EPI)NonAf (>60 ml/min/1.73 sqM) Glucose (74-99) mg/dL POC Glucose (mg/dL) 57 L 114 H 179 H (70-110) mg/dL POC Glu Core Paster ID Netter Krystal T [facility] Plasma Lactic Acid Sarabjit (0.7-2.0) mmol/L Calcium (8.4-10.2) mg/dL Magnesium (1.6-2.3) mg/dL Total Bilirubin (0.2-1.3) mg/dL AST (17-59) U/L ALT (4-49) U/L Alkaline Phosphatase (38-126) U/L Troponin I (0.000-0.034) ng/mL Total Protein (6.3-8.2) g/dL Albumin (3.5-5.0) g/dL Urine Color Urine Appearance (Clear) Urine pH (5.0-8.0) Ur Specific [place] (1.001-1.035) Urine Protein (Negative) Urine Glucose (UA) (Negative) Urine Ketones (Negative) Urine Blood (Negative) Urine Nitrite (Negative) Urine Bilirubin (Negative) Urine Urobilinogen (<2.0) mg/dL Ur Leukocyte Esterase (Negative) 12/13/24 Range/Units 11:43 WBC (4.50-10.00) 10*3/uL RBC (4.40-5.60) 10*6/uL Hgb (13.0-17.0) g/dL Hct (39.6-50.0) % MCV (80.0-97.0) fL MCH (27.0-32.0) pg MCHC (32.0-37.0) g/dL Plt Count (140-440) 10*3/uL MPV (9.5-12.2) fL Immature Gran % (Auto) % Neutrophils % % Lymphocytes % % Monocytes % % Eosinophils % % Basophils % % Immature Gran # (0.00-0.04) 10*3/uL Neutrophils # (1.80-7.70) 10*3/uL Lymphocytes # (0.90-5.00) 10*3/uL Monocytes # (0.20-1.00) 10*3/uL Eosinophils # (0.04-0.35) 10*3/uL Basophils # (0.00-0.10) 10*3/uL PT (10.0-12.5) sec INR (<1.2) APTT (22.0-30.0) sec Sodium (137-145) mmol/L Potassium (3.5-5.1) mmol/L Chloride (98-107) mmol/L Carbon Dioxide (22-30) mmol/L Anion Gap mmol/L BUN (9-20) mg/dL Creatinine (0.66-1.25) mg/dL Est GFR (CKD-EPI)AfAm (>60 ml/min/1.73 sqM) Est GFR (CKD-EPI)NonAf (>60 ml/min/1.73 sqM) Glucose (74-99) mg/dL POC Glucose (mg/dL) (70-110) mg/dL POC Glu Core Paster ID Plasma Lactic Acid Sarabjit 1.7 (0.7-2.0) mmol/L Calcium (8.4-10.2) mg/dL Magnesium (1.6-2.3) mg/dL Total Bilirubin (0.2-1.3) mg/dL AST (17-59) U/L ALT (4-49) U/L Alkaline Phosphatase (38-126) U/L Troponin I (0.000-0.034) ng/mL Total Protein (6.3-8.2) g/dL Albumin (3.5-5.0) g/dL Urine Color Urine Appearance (Clear) Urine pH (5.0-8.0) Ur Specific [place] (1.001-1.035) Urine Protein (Negative) Urine Glucose (UA) (Negative) Urine Ketones (Negative) Urine Blood (Negative) Urine Nitrite (Negative) Urine Bilirubin (Negative) Urine Urobilinogen (<2.0) mg/dL Ur Leukocyte Esterase (Negative) Disposition Clinical Impression: Pneumonia, Hypoglycemia, Acute kidney injury Disposition: ADMITTED IP TO THIS HOSP Is patient prescribed a controlled substance at d/c from ED?: No Referrals: Abi Mix DO [Primary Care Provider] - 1-2 days Time of Disposition: 13:15
[2024-12-13 08:51] LABS: Basophils # (A) 0.03 10*3/uL (0.00-0.10); Basophils % (A) 0.3 %; Eosinophils # (A) 0.18 10*3/uL (0.04-0.35); Eosinophils % (A) 1.9 %; HCT 30.3 % (39.6-50.0); HGB 10.1 g/dL (13.0-17.0); Lymphocytes # (A) 1.19 10*3/uL (0.90-5.00); Lymphocytes % (A) 12.4 %; MCH 28.9 pg (27.0-32.0); MCHC 33.3 g/dL (32.0-37.0); MCV 86.6 fL (80.0-97.0); Mean Platelet Volume 9.9 fL (9.5-12.2); Monocytes # (A) 0.93 10*3/uL (0.20-1.00); Monocytes % (A) 9.7 %; Neutrophils # (A) 7.21 10*3/uL (1.80-7.70); Neutrophils % (A) 75.4 %; Platelet Count 288 10*3/uL (140-440); WBC 9.57 10*3/uL (4.50-10.00)
[2024-12-13 09:00] LABS: Appearance,Urine Clear (Clear); Bilirubin,Urine Negative (Negative); Blood,Urine Negative (Negative); Color,Urine Colorless; Glucose,Urine (UA) Negative (Negative); Ketones,Urine Negative (Negative); Leukocyte Esterase,Urine Negative (Negative); Nitrite,Urine Negative (Negative); PH, Urine 6.5 (5.0-8.0); Protein,Urine Negative (Negative); Specific Gravity,Urine 1.006 (1.001-1.035); Urobilinogen,Urine <2.0 mg/dL (<2.0)
--- NOTE | 2024-12-13 09:01 | CT ---
EXAMINATION TYPE: CT brain wo con DATE OF EXAM: 12/13/2024 8:54 AM COMPARISON: None. CLINICAL INDICATION: Male, 84 years old with history of weakness, Generalized weakness TECHNIQUE: CT of the brain is performed utilizing 3 mm thick sections through the posterior fossa and 3 mm thick sections through the remaining calvarium. Study is performed within 24 hours of arrival to the hospital. Contrast used: mL of , (none if empty) CT DLP: 1215.4 mGycm, Automated exposure control for dose reduction was used. FINDINGS: No abnormal hyperdensity is present to suggest an acute intracranial hemorrhage. No mass lesion is evident. No acute infarcts are evident. Ventricles and sulci are appropriate for the patient age. Paranasal sinuses and mastoid air cells within the [id number] are clear. IMPRESSION: 1. No acute intracranial process. Follow up MRI can be performed as clinically indicated. [facility], Workstation: [id number], 12/13/2024 8:59 AM
--- NOTE | 2024-12-13 09:03 | XR ---
EXAMINATION TYPE: XR chest 2V DATE OF EXAM: 12/13/2024 8:57 AM COMPARISON: 11/20/2024 CLINICAL INDICATION: Male, 84 years old with history of Weakness, TECHNIQUE: XR chest 2V view(s) obtained. FINDINGS: The heart size is enlarged. The pulmonary vasculature is normal. Mild right lower lobe infiltrate is present. Correlate for atelectasis or pneumonia.. IMPRESSION: 1. Right lower lobe infiltrate. Correlate for atelectasis or pneumonia. [facility], Workstation: [facility], 12/13/2024 9:00 AM
[2024-12-13 09:07] LABS: Partial Thromboplastin Time 28.7 sec (22.0-30.0); Prothrombin Time 10.8 sec (10.0-12.5)
[2024-12-13 09:08] LABS: ALT 19 U/L (4-49); AST 28 U/L (17-59); African American GFR (CKD) 36 (>60 ml/min/1.73 sqM); Albumin 4.1 g/dL (3.5-5.0); Alkaline Phosphatase 55 U/L (38-126); Anion Gap 9 mmol/L; Blood Urea Nitrogen 31 mg/dL (9-20); Calcium 9.1 mg/dL (8.4-10.2); Carbon Dioxide 26 mmol/L (22-30); Chloride 96 mmol/L (98-107); Magnesium 2.4 mg/dL (1.6-2.3); Non-African American GFR(CKD) 31 (>60 ml/min/1.73 sqM); Potassium 4.6 mmol/L (3.5-5.1); Sodium 131 mmol/L (137-145); Total Bilirubin 0.5 mg/dL (0.2-1.3)
[2024-12-13 09:27] LABS: Glucose 46 mg/dL (74-99)
[2024-12-13 09:31] LABS: Glucose,Whole Blood 57 mg/dL (70-110)
[2024-12-13 10:09] LABS: Glucose,Whole Blood 114 mg/dL (70-110)
[2024-12-13 11:18] LABS: Glucose,Whole Blood 179 mg/dL (70-110)
[2024-12-13] MEDS: SODIUM CHLORIDE 0.9% 500 ML 500 ML IV STA (11:28)
[2024-12-13] MEDS ORDERED: PNEUMONIA PROTOCOL UTILIZED 1 EACH MISC PO PRN (13:16)
[2024-12-13] MEDS ORDERED: MIDODRINE 5 MG TAB PO PRN (13:17)
[2024-12-13] MEDS ORDERED: GLIMEPIRIDE 4 MG TAB PO PRN (13:17)
[2024-12-13] MEDS: AZITHROMYCIN 500 MG in SODIUM CHLORIDE 0.9% 250 ML IVPB STA (14:04)
[2024-12-13] MEDS: PENTOXIFYLLINE 400 MG TABLET.ER PO SCH (16:52)
[2024-12-13 17:00] LABS: Glucose,Whole Blood 142 mg/dL (70-110)
[2024-12-13 19:50] LABS: Glucose,Whole Blood 107 mg/dL (70-110)
[2024-12-13] MEDS: APIXABAN 2.5 MG TABLET PO SCH (21:30)
[2024-12-13] MEDS: PANTOPRAZOLE 40 MG TABLET PO SCH (21:30)
[2024-12-13] MEDS: GABAPENTIN 300 MG CAP PO SCH (21:30)
[2024-12-13] MEDS: TAMSULOSIN 0.4 MG CAP.ER.24H PO SCH (21:30)
[2024-12-14 06:04] LABS: Glucose,Whole Blood 79 mg/dL (70-110)
[2024-12-14] MEDS: PATIENT'S OWN (Cariprazine Hcl [Vraylar] 3 MG Capsule) PO SCH (08:14)
[2024-12-14] MEDS: MAGNESIUM OXIDE 400 MG TAB PO SCH (08:17)
[2024-12-14] MEDS: ATORVASTATIN 40 MG TAB PO SCH (08:17)
[2024-12-14] MEDS: FUROSEMIDE 40 MG TAB PO SCH (08:18)
[2024-12-14] MEDS: CHOLECALCIFEROL 125 MCG (5000 IU) TABLET PO SCH (08:18)
[2024-12-14] MEDS: LACTOBACILLUS ACIDOPHILUS/PECT 1 EACH CAPSULE PO SCH (08:18)
[2024-12-14] MEDS: ZINC SULFATE 220 MG CAP PO SCH (08:18)
[2024-12-14] MEDS: CYANOCOBALAMIN 500 MCG TAB PO SCH (08:18)
[2024-12-14] MEDS: FERROUS SULFATE 325 MG TAB PO SCH (08:18)
[2024-12-14] MEDS: FOLIC ACID 1 MG TAB PO SCH (08:18)
[2024-12-14] MEDS: GABAPENTIN 300 MG CAP PO SCH (08:18)
[2024-12-14] MEDS: MULTIVITAMINS, THERA 1 EACH TAB PO SCH (08:18)
[2024-12-14] MEDS: PIOGLITAZONE 30 MG TAB PO SCH (08:28)
--- NOTE | 2024-12-14 08:31 | XR ---
EXAMINATION TYPE: XR chest 2V DATE OF EXAM: 12/14/2024 8:15 AM COMPARISON: Chest radiographs from 12/13/2024 TECHNIQUE: XR chest 2V Frontal and lateral views of the chest. CLINICAL INDICATION:Male, 84 years old with history of pneumonia; FINDINGS: Lungs/Pleura: No pleural effusion or pneumothorax. Right basilar patchy airspace opacities redemonstr ated. Pulmonary vascularity: Unremarkable. Heart/mediastinum: Cardiomediastinal silhouette is enlarged and stable. Atherosclerotic calcificatio ns are seen in the aorta. Musculoskeletal: No acute osseous pathology. IMPRESSION: Similar right lower lobe patchy airspace opacities. May represent atelectasis versus pneumonia. [facility], , 12/14/2024 8:29 AM
[2024-12-14] MEDS ORDERED: ACTIVE MIND PO SCH (09:00)
[2024-12-14] MEDS ORDERED: NON FORMULARY DRUG (Vitamin B Complex [Vitamin B Complex] 1 EACH Capsule) PO SCH (09:00)
[2024-12-14] MEDS: LINAGLIPTIN 5 MG TABLET PO SCH (09:36)
[2024-12-14] MEDS: buPROPion XL 150 MG TAB.ER.24H PO SCH (09:36)
[2024-12-14] MEDS: AZITHROMYCIN 500 MG TAB PO SCH (09:36)
[2024-12-14] MEDS: VIT A,C & E-LUTEIN-MINERALS 1 EACH TAB PO SCH (09:36)
--- NOTE | 2024-12-14 11:25 | P.CRDCN ---
History of Present Illness Consult date: 12/14/24 History of present illness: HPI: The patient is an 84-year-old with a past medical history of paroxysmal atrial fibrillation, sinus bradycardia, AV kenneth disease, hypertension, dyslipidemia, coronary artery disease (CAD), and chronic kidney disease (CKD). He was last a dmitted 2 weeks ago for dizziness and concerns of passing out at home. He was discharged with a holter monitor showing 19% bradycardia burden, approximately 30% Mobitz type 1 second-degree AV block, and the longest pause of 3.2 seconds at 3 am. He now presents to the hospital again feeling dizzy, which occurs when trying to get up from bed. Pertinent Vitals: BP 124/64 mmHg, heart rate 80 bpm Pertinent cardiac Labs: 11/2024: HB 10.1, BUN 31, creatinine 1.9, sodium 131, troponin negative. Bas manny creatinine 1.3 Pertinent cardiac testing: - EK11/2024: Atrial fibrillation, heart rate 51 bpm - CXR 11/2024: Mild interstitial markings in lung bases, residual mild congestion - Echo: 11/22/2024: EF 55%, mild LVH, moderate glomerular hypertension, biatrial dilation - Holter: 11/22/2024: Significant bradycardia burden, 3.2-second pause in the night, intermittent Mobitz type 1 second-degree AV block - Telemetry: 11/2024: Sinus bradycardia with Mobitz type 1 second-degree AV block with a very long AL interval ASSESSMENT: # Presyncope and lightheadedness # Mobitz type 1 second-degree AV block with prolonged AL interval # Paroxysmal atrial fibrillation # Essential hypertension # Dyslipidemia # Mild non-obstructive CAD (heart catheterization from 03/2024) # CKD with evidence of SWAPNIL on this admission (creatinine level 1.9) # Type 2 diabetes PLAN: # Continue Eliquis, Lipitor # Discontinue Midodrine # Recommend discontinuation of Actos to avoid fluid overload and instead consider different antidiabetes medication. Reduce dose of Lasix to 20 mg daily, start Farxiga 10 mg daily # Ambulate the patient while monitoring telemetry and obtain orthostatic vital signs # No need to repeat echocardiogram On last admission patient denied the idea of pacemaker. At this time I have presented with diarrhea again. He would like to think about it. If he has poor chronotropic competence or has poor heart rate response to orthostatics, I would recommend doing pacemaker for him. Past Medical History Past Medical History: Diabetes Mellitus Additional Past Medical History / Comment(s): blood clots, neuropathy, prostate issues, hernia, History of Any Multi-Drug Resistant Organisms: None Reported Past Surgical History: No Surgical Hx Reported Past Psychological History: No Psychological Hx Reported Medications and Allergies Home Medications Medication Instructions Recorded Confirmed Type Atorvastatin [Lipitor] 40 mg PO DAILY 11/20/20 12/13/24 History Cariprazine HCl [Vraylar] 3 mg PO DAILY 11/20/20 12/13/24 History Cholecalciferol (Vitamin D3) 125 mcg PO DAILY 11/20/20 12/13/24 History [Vitamin D3 (5000 Iu)] Ferrous Sulfate [Iron (65 MG 325 mg PO DAILY 11/20/20 12/13/24 History Elemental)] Gabapentin 300 mg PO DAILY 11/20/20 12/13/24 History Glimepiride [Amaryl] 8 mg PO DAILY PRN 11/20/20 12/13/24 History L.acidoph,Paracasei, B.lactis 1 cap PO DAILY 11/20/20 12/13/24 History [Probiotic] Multivitamins, Thera [Multivitamin 1 tab PO DAILY 11/20/20 12/13/24 History (formulary)] Tamsulosin [Flomax] 0.4 mg PO BID 11/20/20 12/13/24 History buPROPion XL [Wellbutrin XL] 150 mg PO DAILY 11/20/20 12/13/24 History Pentoxifylline [TRENtal] 400 mg PO AC-TID 05/13/24 12/13/24 History Pioglitazone [Actos] 30 mg PO DAILY 05/13/24 12/13/24 History Benzonatate [Tessalon Perle] 200 mg PO TID PRN 11/19/24 12/13/24 History Cyanocobalamin (Vitamin B-12) 2,000 mcg PO DAILY 11/19/24 12/13/24 History [Vitamin B-12] Folic Acid 1 mg PO DAILY 11/19/24 12/13/24 History Gabapentin [Neurontin] 600 mg PO HS 11/19/24 12/13/24 History Linagliptin [Tradjenta] 5 mg PO DAILY 11/19/24 12/13/24 History Pantoprazole [Protonix] 40 mg PO BID 11/19/24 12/13/24 History metFORMIN HCL [Glucophage] 1,000 mg PO BID PRN 11/19/24 12/13/24 History Apixaban [Eliquis] 5 mg PO BID #60 tab 11/21/24 12/13/24 Rx Midodrine [ProAmatine] 5 mg PO AC-BID PRN #0 caplet 11/21/24 12/13/24 Rx Active Mind(Otc) 1 tab PO DAILY 12/13/24 12/13/24 History Furosemide [Lasix] 40 mg PO DAILY 12/13/24 12/13/24 History Icaps 1 cap PO DAILY 12/13/24 12/13/24 History Magnesium 30mg 30 mg PO DAILY 12/13/24 12/13/24 History Vitamin B Complex 1 cap PO DAILY 12/13/24 12/13/24 History Zinc Gluconate [Zinc] 50 mg PO DAILY 12/13/24 12/13/24 History Allergies Allergy/AdvReac Type Severity Reaction Status Date / Time No Known Allergies Allergy Verified 12/13/24 08:28 Physical Exam Vitals: Vital Signs Temp Pulse Pulse Pulse Resp BP BP 12/14/24 07:15 97.7 F 70 16 106/62 12/14/24 02:00 98 F 80 18 151/79 12/13/24 20:00 97.9 F 64 19 131/62 12/13/24 16:10 97.6 F 66 19 124/64 12/13/24 14:45 97.6 F 66 19 124/64 12/13/24 14:00 98.0 F 82 18 130/56 12/13/24 13:27 42 L 18 148/65 12/13/24 13:00 58 L 18 149/63 12/13/24 12:00 91 18 138/72 Pulse Ox 12/14/24 07:15 99 12/14/24 02:00 12/13/24 20:00 12/13/24 16:10 100 12/13/24 14:45 100 12/13/24 14:00 98 12/13/24 13:27 98 12/13/24 13:00 99 12/13/24 12:00 99 Intake and Output 04/25/25 04/26/25 04/26/25 22:59 06:59 14:59 Intake Total 100 118 Balance 100 118 Intake: Oral 100 118 Other: Voiding Method Toilet Toilet Toilet # Voids 3 8 Results 12/13/24 08:28 12/13/24 08:28 Current Medications Generic Name Dose Route Start Last Admin Trade Name Freq PRN Reason Stop Dose Admin Apixaban 2.5 mg 12/13/24 21:00 12/14/24 08:18 Apixaban 2.5 Mg Tablet PO 2.5 mg BID OLLIE Administration Protocol Atorvastatin Calcium 40 mg 12/14/24 09:00 12/14/24 08:17 Atorvastatin 40 Mg Tab PO 40 mg DAILY OLLIE Administration Azithromycin 500 mg 12/14/24 09:00 12/14/24 09:36 Azithromycin 500 Mg Tab PO 12/15/24 09:01 500 mg DAILY OLLIE Administration Protocol Benzonatate 200 mg 12/13/24 14:02 Benzonatate 100 Mg Cap PO TID PRN Cough Bupropion HCl 150 mg 12/14/24 09:00 12/14/24 09:36 Bupropion Xl 150 Mg Tab.Er.24h PO 150 mg DAILY OLLIE Administration Cholecalciferol 125 mcg 12/14/24 09:00 12/14/24 08:18 Cholecalciferol 125 Mcg (5000 Iu) Tablet PO 125 mcg DAILY OLLIE Administration Cyanocobalamin 2,000 mcg 12/14/24 09:00 12/14/24 08:18 Cyanocobalamin 500 Mcg Tab PO 2,000 mcg DAILY OLLIE Administration Dapagliflozin 10 mg 12/15/24 09:00 Dapagliflozin Propanediol 10 Mg Tablet PO DAILY OLLIE Ferrous Sulfate 325 mg 12/14/24 09:00 12/14/24 08:18 Ferrous Sulfate 325 Mg Tab PO 325 mg DAILY OLLIE Administration Folic Acid 1 mg 12/14/24 09:00 12/14/24 08:18 Folic Acid 1 Mg Tab PO 1 mg DAILY OLLIE Administration Furosemide 20 mg 12/15/24 09:00 Furosemide 20 Mg Tab PO DAILY OLLIE Gabapentin 600 mg 12/13/24 21:00 12/13/24 21:30 Gabapentin 300 Mg Cap PO 600 mg HS OLLIE Administration Gabapentin 300 mg 12/14/24 09:00 12/14/24 08:18 Gabapentin 300 Mg Cap PO 300 mg DAILY OLLIE Administration Glimepiride 8 mg 12/13/24 13:17 Glimepiride 4 Mg Tab PO DAILY PRN Blood Sugar - High Ceftriaxone Sodium 2 gm/ 50 mls @ 100 mls/hr 12/14/24 14:00 Dextrose/Water IVPB 12/17/24 14:29 Q24H OLLIE Protocol Lactobacillus Acidophilus 1 each 12/14/24 09:00 12/14/24 08:18 Lactobacillus Acidophilus/Pect 1 Each Capsule PO 1 each DAILY OLLIE Administration Linagliptin 5 mg 12/14/24 09:00 12/14/24 09:36 Linagliptin 5 Mg Tablet PO 5 mg DAILY OLLIE Administration Magnesium Oxide 200 mg 12/14/24 09:00 12/14/24 08:17 Magnesium Oxide 400 Mg Tab PO 200 mg DAILY OLLIE Administration Miscellaneous Information 1 each 12/13/24 13:16 Pneumonia Protocol Utilized 1 Each Misc PO ONCE PRN Per Protocol Multivitamins 1 each 12/14/24 09:00 12/14/24 08:18 Multivitamins, Thera 1 Each Tab PO 1 each DAILY OLLIE Administration Multivitamins/Minerals 1 each 12/14/24 09:00 12/14/24 09:36 Vit A,C & Q-[id number] 1 Each Tab PO 1 each DAILY OLLIE Administration Patient's Own ( 3 mg 12/14/24 09:00 12/14/24 08:14 Cariprazine Hcl [ PO Not Given Vraylar] 3 Mg DAILY OLLIE Capsule) Pantoprazole Sodium 40 mg 12/13/24 21:00 12/14/24 08:18 Pantoprazole 40 Mg Tablet PO 40 mg BID OLLIE Administration Pentoxifylline 400 mg 12/13/24 17:30 12/14/24 08:17 Pentoxifylline 400 Mg Tablet.Er PO 400 mg AC-TID OLLIE Administration Pioglitazone HCl 30 mg 12/14/24 09:00 12/14/24 08:28 Pioglitazone 30 Mg Tab PO Not Given DAILY OLLIE Tamsulosin HCl 0.4 mg 12/13/24 21:00 12/14/24 08:17 Tamsulosin 0.4 Mg Cap.Er.24h PO 0.4 mg BID OLLIE Administration Zinc Sulfate 220 mg 12/14/24 09:00 12/14/24 08:18 Zinc Sulfate 220 Mg Cap PO 220 mg DAILY OLLIE Administration Intake and Output 12/13/24 12/14/24 12/14/24 22:59 06:59 14:59 Intake Total 100 118 Balance 100 118 Intake: Oral 100 118 Other: Voiding Method Toilet Toilet Toilet # Voids 3 8 12/13/24 08:28 12/13/24 08:28
[2024-12-14 12:15] LABS: Glucose,Whole Blood 83 mg/dL (70-110)
[2024-12-14 12:26] LABS: African American GFR (CKD) 61 (>60 ml/min/1.73 sqM); Anion Gap 8 mmol/L; Blood Urea Nitrogen 21 mg/dL (9-20); Carbon Dioxide 27 mmol/L (22-30); Chloride 93 mmol/L (98-107); Glucose 72 mg/dL (74-99); Non-African American GFR(CKD) 53 (>60 ml/min/1.73 sqM); Potassium 5.2 mmol/L (3.5-5.1); Sodium 128 mmol/L (137-145)
[2024-12-14 12:36] LABS: NT-Pro-B-Type Natriuretic Pept 474 pg/mL
[2024-12-14 13:11] LABS: Basophils # (A) 0.03 10*3/uL (0.00-0.10); Basophils % (A) 0.4 %; Eosinophils # (A) 0.16 10*3/uL (0.04-0.35); Eosinophils % (A) 2.2 %; HCT 30.6 % (39.6-50.0); HGB 9.9 g/dL (13.0-17.0); Lymphocytes # (A) 0.84 10*3/uL (0.90-5.00); Lymphocytes % (A) 11.7 %; MCH 28.4 pg (27.0-32.0); MCHC 32.4 g/dL (32.0-37.0); MCV 87.9 fL (80.0-97.0); Mean Platelet Volume 10.3 fL (9.5-12.2); Monocytes # (A) 0.69 10*3/uL (0.20-1.00); Monocytes % (A) 9.6 %; Neutrophils # (A) 5.41 10*3/uL (1.80-7.70); Neutrophils % (A) 75.7 %; Platelet Count 273 10*3/uL (140-440); RBC 3.48 10*6/uL (4.40-5.60); RDW 13.9 % (11.5-14.5); WBC 7.16 10*3/uL (4.50-10.00)
[2024-12-14] MEDS: cefTRIAXone 2 GM in DEXTROSE 5% IN WATER 50 ML IVPB SCH (14:15)
--- NOTE | 2024-12-14 14:56 | P.CNPUL ---
History of Present Illness Consult date: 12/14/24 Reason for consult: abnormal CXR/CT History of present illness: This is a consultation was for a suspected right lower lobe pneumonia. The patient was hospitalized for episodes of dizziness and the patient is known to have paroxysmal atrial fibrillation, sinus bradycardia, along with history of hypertension hyperlipidemia and coronary artery disease and chronic kidney disease. The patient has already undergone a cardiac evaluation. He underwent a Holter monitor on outpatient basis that revealed a 90% bradycardia burden with 30% Mobitz type I second-degree AV block and the longest cardiac pause was around 3.2 seconds. Chest x-ray shows some limited interstitial marking the right lung base. The patient has no cough. No sputum production. Lifetime non-smoker. No pleurisy. No hemoptysis. No aspiration. Echocardiogram showed an EF around 55%. The blood work shows a white cell count of 7.1. Hemoglobin is at 9.9, creatinine is 1.2 with a GFR of 53. Potassium is at 5.2. Sodium levels at 128. The patient is currently on Rocephin and Zithromax, empiric antibiotic coverage. The patient is on anticoagulation with Eliquis. No beta- blockers. Review of Systems 14 point review of system was done and the positive findings were mentioned above history of present illness Past Medical History Past Medical History: Diabetes Mellitus, Hyperlipidemia, Prostate Disorder Additional Past Medical History / Comment(s): blood clots, neuropathy, prostate issues, hernia, History of Any Multi-Drug Resistant Organisms: None Reported Past Surgical History: No Surgical Hx Reported Past Psychological History: No Psychological Hx Reported Medications and Allergies Home Medications Medication Instructions Recorded Confirmed Type Atorvastatin [Lipitor] 40 mg PO DAILY 11/20/20 12/13/24 History Cariprazine HCl [Vraylar] 3 mg PO DAILY 11/20/20 12/13/24 History Cholecalciferol (Vitamin D3) 125 mcg PO DAILY 11/20/20 12/13/24 History [Vitamin D3 (5000 Iu)] Ferrous Sulfate [Iron (65 MG 325 mg PO DAILY 11/20/20 12/13/24 History Elemental)] Gabapentin 300 mg PO DAILY 11/20/20 12/13/24 History Glimepiride [Amaryl] 8 mg PO DAILY PRN 11/20/20 12/13/24 History L.acidoph,Paracasei, B.lactis 1 cap PO DAILY 11/20/20 12/13/24 History [Probiotic] Multivitamins, Thera [Multivitamin 1 tab PO DAILY 11/20/20 12/13/24 History (formulary)] Tamsulosin [Flomax] 0.4 mg PO BID 11/20/20 12/13/24 History buPROPion XL [Wellbutrin XL] 150 mg PO DAILY 11/20/20 12/13/24 History Pentoxifylline [TRENtal] 400 mg PO AC-TID 05/13/24 12/13/24 History Pioglitazone [Actos] 30 mg PO DAILY 05/13/24 12/13/24 History Benzonatate [Tessalon Perle] 200 mg PO TID PRN 11/19/24 12/13/24 History Cyanocobalamin (Vitamin B-12) 2,000 mcg PO DAILY 11/19/24 12/13/24 History [Vitamin B-12] Folic Acid 1 mg PO DAILY 11/19/24 12/13/24 History Gabapentin [Neurontin] 600 mg PO HS 11/19/24 12/13/24 History Linagliptin [Tradjenta] 5 mg PO DAILY 11/19/24 12/13/24 History Pantoprazole [Protonix] 40 mg PO BID 11/19/24 12/13/24 History metFORMIN HCL [Glucophage] 1,000 mg PO BID PRN 11/19/24 12/13/24 History Apixaban [Eliquis] 5 mg PO BID #60 tab 11/21/24 12/13/24 Rx Midodrine [ProAmatine] 5 mg PO AC-BID PRN #0 caplet 11/21/24 12/13/24 Rx Active Mind(Otc) 1 tab PO DAILY 12/13/24 12/13/24 History Furosemide [Lasix] 40 mg PO DAILY 12/13/24 12/13/24 History Icaps 1 cap PO DAILY 12/13/24 12/13/24 History Magnesium 30mg 30 mg PO DAILY 12/13/24 12/13/24 History Vitamin B Complex 1 cap PO DAILY 12/13/24 12/13/24 History Zinc Gluconate [Zinc] 50 mg PO DAILY 12/13/24 12/13/24 History Allergies Allergy/AdvReac Type Severity Reaction Status Date / Time No Known Allergies Allergy Verified 12/13/24 08:28 Physical Exam Vitals: Vital Signs Temp Pulse Pulse Pulse Pulse Pulse Resp 12/14/24 13:25 97.8 F 58 L 14 12/14/24 11:37 65 12/14/24 11:22 64 12/14/24 11:20 60 12/14/24 07:15 97.7 F 70 16 12/14/24 02:00 98 F 80 18 12/13/24 20:00 97.9 F 64 19 12/13/24 16:10 97.6 F 66 19 BP BP BP BP BP Pulse Ox 12/14/24 13:25 131/61 98 12/14/24 11:37 161/60 100 12/14/24 11:22 148/75 100 12/14/24 11:20 125/57 99 12/14/24 07:15 106/62 99 12/14/24 02:00 151/79 12/13/24 20:00 131/62 12/13/24 16:10 124/64 100 Intake and Output 12/13/24 12/14/24 12/14/24 22:59 06:59 14:59 Intake Total 100 236 Balance 100 236 Intake: Oral 100 236 Other: Voiding Method Toilet Toilet Toilet # Voids 3 8 4 # Bowel Movements 1 The patient appeared well nourished and normally developed. Vital signs as do cumented. Head exam is unremarkable. No scleral icterus or corneal arcus noted. Neck is without jugular venous distension, thyromegaly, or carotid bruits. Carotid upstrokes are brisk bilaterally. Lungs are clear to auscultation and percussion. Cardiac exam reveals the PMI to be normally sized and situated. Rhythm is regular. First and second heart sounds normal. No murmurs, rubs or gallops. Abdominal exam reveals normal bowel sounds, no masses, no organomegaly and no aortic enlargement. Extremities are nonedematous and both femoral and pedal pulses are normal. Examination of the skin revealed no evidence of significant rashes, suspicious appearing nevi or other concerning lesions. Neurologically, the patient is awake and alert and the patient does not have any focal neurological deficit. Cranial nerves are essentially intact. Results - Laboratory Findings CBC and BMP: 12/14/24 11:33 12/14/24 11:43 PT/INR, D-dimer PT 10.8 sec (10.0-12.5) 12/13/24 08:28 INR 1.0 (<1.2) 12/13/24 08:28 Abnormal lab findings: Abnormal Labs 12/13/24 12/13/24 12/13/24 08:28 08:28 09:30 RBC 3.50 L Hgb 10.1 L Hct 30.3 L Lymphocytes # Sodium 131 L Potassium Chloride 96 L BUN 31 H Creatinine 1.92 H Glucose 46 L* POC Glucose (mg/dL) 57 L Magnesium 2.4 H 12/13/24 12/13/24 12/13/24 10:07 11:16 16:59 RBC Hgb Hct Lymphocytes # Sodium Potassium Chloride BUN Creatinine Glucose POC Glucose (mg/dL) 114 H 179 H 142 H Magnesium 12/14/24 12/14/24 11:33 11:43 RBC 3.48 L Hgb 9.9 L Hct 30.6 L Lymphocytes # 0.84 L Sodium 128 L Potassium 5.2 H Chloride 93 L BUN 21 H Creatinine Glucose 72 L POC Glucose (mg/dL) Magnesium - Diagnostic Findings Chest x-ray: image reviewed Assessment and Plan Plan: Nonspecific right basilar infiltrate. Pneumonia is highly doubtful. No fever. No leukocytosis. No sputum production. Pleurisy. No hemoptysis. Oxygenation is stable and the patient is a lifetime non-smoker. Episodic dizziness/lightheadedness/presyncope, currently under investigation. Patient has undergone Holter monitoring the patient was found to have some bradycardic events with morbid types I second-degree AV block. No cardiac pauses Paroxysmal A-fib Hypertension Hyperlipidemia Nonobstructive coronary artery disease based on a cardiac catheterization which was done in March 2024 Chronic stage II kidney disease Hyperkalemia with a potassium level of 5.2 Hyponatremia BPH Plan Highly doubt pneumonia. Will obtain a noncontrast CAT scan of the chest May discontinue antibiotics if no pneumonia is recovered from the CAT scan Cardiology follow-up Monitor potassium Monitor electrolytes Will follow
--- NOTE | 2024-12-14 15:56 | CT ---
EXAMINATION TYPE: CT chest wo con DATE OF EXAM: 12/14/2024 COMPARISON: None CLINICAL INDICATION: Male, 84 years old with history of Right lower lobe infiltrate/opacity; PHH, Abn ormality found on prior XR TECHNIQUE: CT scan of the thorax is performed without IV contrast. CT DLP: 450.[address] CTDI: mGy Automated exposure control for dose reduction was used. FINDINGS: LUNGS: There are small bilateral pleural effusions. Fluid is seen within the right minor fissure. No focal consolidation. No distinct pulmonary nodule or mass. MEDIASTINUM: Lack of IV contrast is noted to limit evaluation for mediastinal and especially hilar ad enopathy. There are no definitive greater than 1 cm hilar or mediastinal lymph nodes. No cardiomega ly or pericardial effusion is seen. HEART: Cardiomegaly is demonstrated. No significant coronary artery calcifications. No overt failure seen at this time. OTHER: No additional significant abnormality is seen. IMPRESSION: There are small bilateral pleural effusions. Fluid is seen within the right minor fissure . No focal consolidation. Follow-up recommendations for incidental pulmonary nodules are per [employer] or [employer]. [facility], , 12/14/2024 3:54 PM
[2024-12-14 17:31] LABS: Glucose,Whole Blood 48 mg/dL (70-110)
[2024-12-14 17:45] LABS: Glucose,Whole Blood 65 mg/dL (70-110)
[2024-12-14 18:06] LABS: Glucose,Whole Blood 119 mg/dL (70-110)
[2024-12-14] MEDS: DEXTROSE 50% SYRINGE 50 ML IVP STA (18:07)
[2024-12-14 18:27] LABS: Glucose,Whole Blood 164 mg/dL (70-110)
[2024-12-14 20:19] LABS: Glucose,Whole Blood 179 mg/dL (70-110)
[2024-12-14] MEDS: BENZONATATE 100 MG CAP PO PRN (21:29)
[2024-12-15 05:39] LABS: Glucose,Whole Blood 91 mg/dL (70-110)
[2024-12-15 07:06] LABS: Chol/HDL Ratio 3.31 Ratio; LDL Cholesterol,Calculated 81.7 mg/dL (0.0-131.0)
[2024-12-15 07:49] LABS: Basophils # (A) 0.02 10*3/uL (0.00-0.10); Basophils % (A) 0.3 %; Eosinophils % (A) 5.2 %; HCT 29.2 % (39.6-50.0); HGB 9.3 g/dL (13.0-17.0); Lymphocytes # (A) 0.77 10*3/uL (0.90-5.00); Lymphocytes % (A) 13.4 %; MCH 27.8 pg (27.0-32.0); MCHC 31.8 g/dL (32.0-37.0); MCV 87.2 fL (80.0-97.0); Mean Platelet Volume 9.5 fL (9.5-12.2); Monocytes # (A) 0.63 10*3/uL (0.20-1.00); Monocytes % (A) 10.9 %; Neutrophils # (A) 4.02 10*3/uL (1.80-7.70); Neutrophils % (A) 69.9 %; Platelet Count 251 10*3/uL (140-440); RBC 3.35 10*6/uL (4.40-5.60); RDW 13.7 % (11.5-14.5); WBC 5.76 10*3/uL (4.50-10.00)
[2024-12-15 08:30] LABS: African American GFR (CKD) 58 (>60 ml/min/1.73 sqM); Anion Gap 7 mmol/L; Blood Urea Nitrogen 17 mg/dL (9-20); Calcium 9.1 mg/dL (8.4-10.2); Carbon Dioxide 26 mmol/L (22-30); Chloride 98 mmol/L (98-107); Glucose 89 mg/dL (74-99); Non-African American GFR(CKD) 50 (>60 ml/min/1.73 sqM); Potassium 5.9 mmol/L (3.5-5.1); Sodium 131 mmol/L (137-145)
[2024-12-15] MEDS: FUROSEMIDE 20 MG TAB PO SCH (08:42)
[2024-12-15] MEDS: DAPAGLIFLOZIN PROPANEDIOL 10 MG TABLET PO SCH (08:42)
[2024-12-15 12:13] LABS: Glucose,Whole Blood 201 mg/dL (70-110)
[2024-12-15] MEDS: SODIUM ZIRCONIUM CYCLOSILICATE 10 GM PACKET PO ONE ×2 (12:40→14:44)
--- NOTE | 2024-12-15 13:34 | P.PN ---
Subjective Progress Note Date: 12/15/24 HPI: The patient is an 84-year-old with a past medical history of paroxysmal atrial fibrillation, sinus bradycardia, AV kenneth disease, hypertension, dyslipidemia, coronary artery disease (CAD), and chronic kidney disease (CKD). He was last admitted 2 weeks ago for dizziness and concerns of passing out at home. He was discharged with a holter monitor showing 19% bradycardia burden, approximately 30% Mobitz type 1 second-degree AV block, and the longest pause of 3.2 seconds at 3 am. He now presents to the hospital again feeling dizzy, which occurs when trying to get up from bed. Pertinent Vitals: BP 124/64 mmHg, heart rate 80 bpm Pertinent cardiac Labs: 11/2024: HB 10.1, BUN 31, creatinine 1.9, sodium 131, troponin negative. Baseline creatinine 1.3 Pertinent cardiac testing: - EK11/2024: Atrial fibrillation, heart rate 51 bpm - CXR 11/2024: Mild interstitial markings in lung bases, residual mild congestion - Echo: 11/22/2024: EF 55%, mild LVH, moderate glomerular hypertension, biatrial dilation - Holter: 11/22/2024: Significant bradycardia burden, 3.2-second pause in the night, intermittent Mobitz type 1 second-degree AV block - Telemetry: 11/2024: Sinus bradycardia with Mobitz type 1 second-degree AV block with a very long VT interval 12/15/2024 Seen and examined at bedside this a.m. Blood pressure is on higher normal side. No further episodes of lightheadedness dizziness. Labs shows hemoglobin 9.3, sodium 131 potassium 5.9, creatinine 1.29. On admission it was 1.9. He was taking Lasix 40 mg daily. Which have reduced. ASSESSMENT: # Presyncope and lightheadedness # Mobitz type 1 second-degree AV block with prolonged VT interval # Paroxysmal atrial fibrillation # Essential hypertension # Dyslipidemia # Mild non-obstructive CAD (heart catheterization from 03/2024) # CKD with evidence of SWAPNIL on this admission (creatinine level 1.9) # Prerenal azotemia likely because of Lasix use # Type 2 diabetes PLAN: # Continue Eliquis, Lipitor # Discontinue Midodrine # Recommend discontinuation of Actos to avoid fluid overload and instead consider different antidiabetes medication. Reduce dose of Lasix to 20 mg daily, start Farxiga 10 mg daily Give 2 doses of Lokelma and recommend outpatient BMP for hypertension level. # Ambulate the patient while monitoring telemetry and obtain orthostatic vital signs # No need to repeat echocardiogram No need for pacemaker at this time as telemetry has not shown any significant pauses or any significant high-grade AV blocks. He has had second-degree Mobitz I block but he does have chronotropic competence when he ambulated in the unit. His initial orthostatic vital signs were negative. If his repeat orthostats are negative today, he can be cleared from cardiovascular standpoint Recommend outpatient follow-up Tachycardia the Objective - Vital Signs Vital signs: Vital Signs Temp 98.3 F 12/15/24 06:55 Pulse 78 12/15/24 06:55 Resp 16 12/15/24 08:43 BP 155/68 12/15/24 06:55 Pulse Ox 97 12/15/24 06:55 FiO2 Intake & Output 12/14/24 12/15/24 12/15/24 18:59 06:59 18:59 Intake Total 776 118 Balance 776 118 Intake: Oral 776 118 Other: Voiding Method Toilet Toilet Toilet # Voids 4 2 # Bowel Movements 1 1 - Labs CBC & Chem 7: 12/15/24 07:26 12/15/24 07:26 Labs: Abnormal Lab Results - Last 24 Hours (Table) 12/14/24 12/14/24 12/14/24 Range/Units 11:33 17:29 17:43 RBC (4.40-5.60) 10*6/uL Hgb (13.0-17.0) g/dL Hct (39.6-50.0) % MCHC (32.0-37.0) g/dL Lymphocytes # (0.90-5.00) 10*3/uL Sodium (137-145) mmol/L Potassium (3.5-5.1) mmol/L Creatinine (0.66-1.25) mg/dL POC Glucose (mg/dL) 48 L* 65 L (70-110) mg/dL Hemoglobin A1c 7.2 H (<=6.0) % 12/14/24 12/14/24 12/14/24 Range/Units 18:05 18:25 20:17 RBC (4.40-5.60) 10*6/uL Hgb (13.0-17.0) g/dL Hct (39.6-50.0) % MCHC (32.0-37.0) g/dL Lymphocytes # (0.90-5.00) 10*3/uL Sodium (137-145) mmol/L Potassium (3.5-5.1) mmol/L Creatinine (0.66-1.25) mg/dL POC Glucose (mg/dL) 119 H 164 H 179 H (70-110) mg/dL Hemoglobin A1c (<=6.0) % 12/15/24 12/15/24 12/15/24 Range/Units 07:26 07:26 12:12 RBC 3.35 L (4.40-5.60) 10*6/uL Hgb 9.3 L (13.0-17.0) g/dL Hct 29.2 L (39.6-50.0) % MCHC 31.8 L (32.0-37.0) g/dL Lymphocytes # 0.77 L (0.90-5.00) 10*3/uL Sodium 131 L (137-145) mmol/L Potassium 5.9 H (3.5-5.1) mmol/L Creatinine 1.29 H (0.66-1.25) mg/dL POC Glucose (mg/dL) 201 H (70-110) mg/dL Hemoglobin A1c (<=6.0) % Microbiology - Last 24 Hours (Table) 12/14/24 21:32 Gram Stain - Preliminary Sputum 12/13/24 11:43 Blood Culture - Preliminary Blood
[2024-12-15 17:06] LABS: Glucose,Whole Blood 240 mg/dL (70-110)
[2024-12-15 20:05] LABS: Glucose,Whole Blood 226 mg/dL (70-110)
--- NOTE | 2024-12-15 20:20 | P.PN ---
Subjective Progress Note Date: 12/15/24 12/15/2024, the patient is calm and comfortable denies having any specific complaints. No further episodes of dizziness or lightheadedness. The patient is hemodynamically stable. Blood work shows a BUN of 17 with a creatinine of 1.29 the patient's creatinine is improved since admission. Sodium levels at 131, potassium is at 5.9. The white cell count is 5.7 with a hemoglobin 9.7 and a platelet count of 251. proBNP level was 474. Procalcitonin level is less than 0.2. Noncontrast CAT scan of the chest was completed and there is no indication for an underlying pneumonia. Small bilateral pleural effusion and fluid seen within the right minor fissure and there is no foreleg or consolidation or airspace disease as suspected. Such, possibility of a pneumonia is considered to be quite unlikely in this patient. Antibiotics can be potentially discontinued. Objective - Vital Signs Vital signs: Vital Signs Temp 98.4 F 12/15/24 17:33 Pulse 63 12/15/24 17:33 Resp 16 12/15/24 17:33 BP 133/72 12/15/24 17:33 Pulse Ox 98 12/15/24 17:33 FiO2 Intake & Output 12/15/24 12/15/24 12/16/24 06:59 18:59 06:59 Intake Total 472 Balance 472 Intake: Oral 472 Other: Voiding Method Toilet Toilet # Voids 2 6 # Bowel Movements 1 1 - Exam The patient appeared well nourished and normally developed. Vital signs as documented. Head exam is unremarkable. No scleral icterus or corneal arcus noted. Neck is without jugular venous distension, thyromegaly, or carotid bruits. Carotid upstrokes are brisk bilaterally. Lungs are clear to auscultation and percussion. Cardiac exam reveals the PMI to be normally sized and situated. Rhythm is regular. First and second heart sounds normal. No murmurs, rubs or gallops. Abdominal exam reveals normal bowel sounds, no masses, no organomegaly and no aortic enlargement. Extremities are nonedematous and both femoral and pedal pulses are normal. Examination of the skin revealed no evidence of significant rashes, suspicious appearing nevi or other concerning lesions. Neurologically, the patient is awake and alert and the patient does not have any focal neurological deficit. Cranial nerves are essentially intact. - Labs CBC & Chem 7: 12/15/24 07:26 12/15/24 07:26 Labs: Abnormal Lab Results - Last 24 Hours (Table) 12/14/24 12/14/24 12/15/24 Range/Units 11:33 20:17 07:26 RBC 3.35 L (4.40-5.60) 10*6/uL Hgb 9.3 L (13.0-17.0) g/dL Hct 29.2 L (39.6-50.0) % MCHC 31.8 L (32.0-37.0) g/dL Lymphocytes # 0.77 L (0.90-5.00) 10*3/uL Sodium (137-145) mmol/L Potassium (3.5-5.1) mmol/L Creatinine (0.66-1.25) mg/dL POC Glucose (mg/dL) 179 H (70-110) mg/dL Hemoglobin A1c 7.2 H (<=6.0) % 12/15/24 12/15/24 12/15/24 Range/Units 07:26 12:12 17:05 RBC (4.40-5.60) 10*6/uL Hgb (13.0-17.0) g/dL Hct (39.6-50.0) % MCHC (32.0-37.0) g/dL Lymphocytes # (0.90-5.00) 10*3/uL Sodium 131 L (137-145) mmol/L Potassium 5.9 H (3.5-5.1) mmol/L Creatinine 1.29 H (0.66-1.25) mg/dL POC Glucose (mg/dL) 201 H 240 H (70-110) mg/dL Hemoglobin A1c (<=6.0) % 12/15/24 Range/Units 20:03 RBC (4.40-5.60) 10*6/uL Hgb (13.0-17.0) g/dL Hct (39.6-50.0) % MCHC (32.0-37.0) g/dL Lymphocytes # (0.90-5.00) 10*3/uL Sodium (137-145) mmol/L Potassium (3.5-5.1) mmol/L Creatinine (0.66-1.25) mg/dL POC Glucose (mg/dL) 226 H (70-110) mg/dL Hemoglobin A1c (<=6.0) % Microbiology - Last 24 Hours (Table) 12/13/24 11:43 Blood Culture - Preliminary Blood 12/14/24 21:32 Gram Stain - Preliminary Sputum Assessment and Plan Plan: Nonspecific right basilar infiltrate. Pneumonia is highly doubtful. No fever. No leukocytosis. No sputum production. Pleurisy. No hemoptysis. Oxygenation is stable and the patient is a lifetime non-smoker. Episodic dizziness/lightheadedness/presyncope, currently under investigation. Patient has undergone Holter monitoring the patient was found to have some bradycardic events with morbid types I second-degree AV block. No cardiac pauses. Recovered and the patient is not having any further episodes. Paroxysmal A-fib Hypertension Hyperlipidemia Nonobstructive coronary artery disease based on a cardiac catheterization which was done in March 2024 Chronic stage II kidney disease, creatinine is improved Hyperkalemia with a potassium level of 5.2 Hyponatremia, improved BPH Plan Highly doubt pneumonia. Noncontrast CAT scan of the chest showed no acute abnormalities. No evidence of any airspace disease or consolidations. Renal function is improving May discontinue antibiotics if no pneumonia is recovered from the CAT scan Cardiology follow-up Monitor potassium Monitor electrolytes Will sign off.
--- NOTE | 2024-12-15 21:41 | P.HPIM ---
History of Present Illness H&P Date: 12/13/24 Chief Complaint: Weakness 84-year-old male, history of diabetes mellitus, paroxysmal atrial fibrillation, sinus bradycardia, hypertension, hyperlipidemia, coronary artery disease, CKD, present to the emergency department with concerns with weakness. Onset of symptoms was this morning. Patient did have a fall and struck his head 2 days ago however only had mild lightheadedness since that time. Patient had difficulty getting out of bed. Patient is unclear if he could make it to the restroom by himself today. No history of similar symptoms previously. No isolated area of weakness. Patient denies confusion. In the ED patient was found to be bradycardic with Mobitz type I second-degree AV block along with pauses around 3.2 seconds Chest x-ray reveals possible pneumonia The blood work shows a white cell count of 7.1. Hemoglobin is at 9.9, creatinine is 1.2 with a GFR of 53. Potassium is at 5.2. Sodium levels at 128. Patient is admitted for further cardiology and pulmonary evaluation Review of Systems REVIEW OF SYSTEMS: CONSTITUTIONAL: No fever, no malaise, no fatigue. HEENT: No recent visual problems or hearing problems. Denied any sore throat. CARDIOVASCULAR: No chest pain, orthopnea, PND, no palpitations, no syncope. PULMONARY: No shortness of breath, no cough, no hemoptysis. GASTROINTESTINAL: No diarrhea, no nausea, no vomiting, no abdominal pain. NEUROLOGICAL: No headaches, no weakness, no numbness. HEMATOLOGICAL: Denies any bleeding or petechiae. GENITOURINARY: Denies any burning micturition, frequency, or urgency. MUSCULOSKELETAL/RHEUMATOLOGICAL: Denies any joint pain, swelling, or any muscle pain. ENDOCRINE: Denies any polyuria or polydipsia. The rest of the 14-point review of systems is negative. Past Medical History Past Medical History: Diabetes Mellitus Additional Past Medical History / Comment(s): blood clots, neuropathy, prostate issues, hernia, History of Any Multi-Drug Resistant Organisms: None Reported Past Surgical History: No Surgical Hx Reported Past Psychological History: No Psychological Hx Reported Medications and Allergies Home Medications Medication Instructions Recorded Confirmed Type Atorvastatin [Lipitor] 40 mg PO DAILY 11/20/20 12/13/24 History Cariprazine HCl [Vraylar] 3 mg PO DAILY 11/20/20 12/13/24 History Cholecalciferol (Vitamin D3) 125 mcg PO DAILY 11/20/20 12/13/24 History [Vitamin D3 (5000 Iu)] Ferrous Sulfate [Iron (65 MG 325 mg PO DAILY 11/20/20 12/13/24 History Elemental)] Gabapentin 300 mg PO DAILY 11/20/20 12/13/24 History Glimepiride [Amaryl] 8 mg PO DAILY PRN 11/20/20 12/13/24 History L.acidoph,Paracasei, B.lactis 1 cap PO DAILY 11/20/20 12/13/24 History [Probiotic] Multivitamins, Thera [Multivitamin 1 tab PO DAILY 11/20/20 12/13/24 History (formulary)] Tamsulosin [Flomax] 0.4 mg PO BID 11/20/20 12/13/24 History buPROPion XL [Wellbutrin XL] 150 mg PO DAILY 11/20/20 12/13/24 History Pentoxifylline [TRENtal] 400 mg PO AC-TID 05/13/24 12/13/24 History Pioglitazone [Actos] 30 mg PO DAILY 05/13/24 12/13/24 History Benzonatate [Tessalon Perle] 200 mg PO TID PRN 11/19/24 12/13/24 History Cyanocobalamin (Vitamin B-12) 2,000 mcg PO DAILY 11/19/24 12/13/24 History [Vitamin B-12] Folic Acid 1 mg PO DAILY 11/19/24 12/13/24 History Gabapentin [Neurontin] 600 mg PO HS 11/19/24 12/13/24 History Linagliptin [Tradjenta] 5 mg PO DAILY 11/19/24 12/13/24 History Pantoprazole [Protonix] 40 mg PO BID 11/19/24 12/13/24 History metFORMIN HCL [Glucophage] 1,000 mg PO BID PRN 11/19/24 12/13/24 History Apixaban [Eliquis] 5 mg PO BID #60 tab 11/21/24 12/13/24 Rx Midodrine [ProAmatine] 5 mg PO AC-BID PRN #0 caplet 11/21/24 12/13/24 Rx Active Mind(Otc) 1 tab PO DAILY 12/13/24 12/13/24 History Furosemide [Lasix] 40 mg PO DAILY 12/13/24 12/13/24 History Icaps 1 cap PO DAILY 12/13/24 12/13/24 History Magnesium 30mg 30 mg PO DAILY 12/13/24 12/13/24 History Vitamin B Complex 1 cap PO DAILY 12/13/24 12/13/24 History Zinc Gluconate [Zinc] 50 mg PO DAILY 12/13/24 12/13/24 History Allergies Allergy/AdvReac Type Severity Reaction Status Date / Time No Known Allergies Allergy Verified 12/13/24 08:28 Physical Exam Vitals: Vital Signs Temp Pulse Resp BP Pulse Ox 12/13/24 13:27 42 L 18 148/65 98 12/13/24 13:00 58 L 18 149/63 99 12/13/24 12:00 91 18 138/72 99 12/13/24 11:19 62 18 133/62 100 12/13/24 08:15 98.7 F 70 18 132/97 93 L Intake and Output 12/12/24 12/13/24 12/13/24 22:59 06:59 14:59 Other: Weight 83.461 kg General appearance: alert, in no apparent distress Head exam: Present: normocephalic Eye exam: Present: normal appearance, PERRL, EOMI Neck exam: Present: normal inspection. Absent: tenderness, meningismus Respiratory exam: Present: normal lung sounds bilaterally Cardiovascular Exam: Present: regular rate, normal rhythm GI/Abdominal exam: Present: soft. Absent: tenderness Extremities exam: Present: normal inspection Neurological exam: Present: alert, oriented X3, CN II-XII intact. Absent: motor sensory deficit Psychiatric exam: Present: normal affect, normal mood Skin exam: Present: normal color Results CBC & Chem 7: 12/15/24 07:26 12/15/24 07:26 Labs: Abnormal Lab Results - Last 24 Hours (Table) 12/13/24 12/13/24 12/13/24 Range/Units 08:28 08:28 09:30 RBC 3.50 L (4.40-5.60) 10*6/uL Hgb 10.1 L (13.0-17.0) g/dL Hct 30.3 L (39.6-50.0) % Sodium 131 L (137-145) mmol/L Chloride 96 L (98-107) mmol/L BUN 31 H (9-20) mg/dL Creatinine 1.92 H (0.66-1.25) mg/dL Glucose 46 L* (74-99) mg/dL POC Glucose (mg/dL) 57 L (70-110) mg/dL Magnesium 2.4 H (1.6-2.3) mg/dL 12/13/24 12/13/24 Range/Units 10:07 11:16 RBC (4.40-5.60) 10*6/uL Hgb (13.0-17.0) g/dL Hct (39.6-50.0) % Sodium (137-145) mmol/L Chloride (98-107) mmol/L BUN (9-20) mg/dL Creatinine (0.66-1.25) mg/dL Glucose (74-99) mg/dL POC Glucose (mg/dL) 114 H 179 H (70-110) mg/dL Magnesium (1.6-2.3) mg/dL Assessment and Plan Assessment: 1. Community-acquired pneumonia -Chest x-ray reveals right basilar infiltrate; patient has been placed on IV Rocephin and azithromycin - Will order sputum and blood culture - Monitor CBC, CRP and procalcitonin - Consult pulmonary 2. Bradycardia; EKG showing Mobitz type I AV block - Patient has been worked up for bradycardia in the past; has Holter monitor in place - Has been recommended pacemaker in the past and has refused - We will continue on telemetry Consult cardiology 3. Syncope/presyncope -Patient has been placed on Holter monitor and was found to have bradycardia with Mobitz type I second-degree AV block - Patient has been suggested workup for possible pacemaker placement and has refused in the past 4. Paroxysmal atrial fibrillation; patient remains anticoagulated on Eliquis 2.5 mg twice daily 5. Hypertension; Trental 400 mg 3 times daily 6. Hyperlipidemia; Lipitor 40 mg nightly 7. Coronary artery disease; cardiac catheterization in March 2024 revealed nonobstructive CAD 8. Diabetes mellitus type 2; Amaryl 8 mg daily as needed 9. BPH; continue home dose of Flomax DVT prophylaxis; SCDs/Eliquis CODE STATUS; full code
--- NOTE | 2024-12-15 21:44 | P.PN ---
Subjective Progress Note Date: 12/15/24 84-year-old male, history of diabetes mellitus, paroxysmal atrial fibrillation, sinus bradycardia, hypertension, hyperlipidemia, coronary artery disease, CKD, present to the emergency department with concerns with weakness. Onset of symptoms was this morning. Patient did have a fall and struck his head 2 days ago however only had mild lightheadedness since that time. Patient had difficulty getting out of bed. Patient is unclear if he could make it to the restroom by himself today. No history of similar symptoms previously. No isolated area of weakness. Patient denies confusion. In the ED patient was found to be bradycardic with Mobitz type I second-degree AV block along with pauses around 3.2 seconds Chest x-ray reveals possible pneumonia The blood work shows a white cell count of 7.1. Hemoglobin is at 9.9, creatinine is 1.2 with a GFR of 53. Potassium is at 5.2. Sodium levels at 128. Patient is admitted for further cardiology and pulmonary evaluation 12/15/2024 Patient is seen and evaluated sitting up in bedside chair Vital signs are reviewed and stable with temperature of 98.7, pulse 70, respirations 16 and blood pressure of 132/97 Blood work reveals WBC 5.7, hemoglobin 9.3 and platelet count of 251; sodium 131, potassium 5.9, BUN/creatinine of 17/1.29 -Patient received Lokelma 10 mg p.o. x 1; will repeat potassium level and make further recommendation; patient is currently not on any potassium supplement - Patient had CT of the chest completed; pulmonary recommending to discontinue antibiotics if no pneumonia on CAT scan Cardiology on board; have discontinued Actos and reduced dose of Lasix to 20 mg daily; patient has been placed on Farxiga Objective - Vital Signs Vital signs: Vital Signs Temp 98.4 F 12/15/24 17:33 Pulse 63 12/15/24 17:33 Resp 16 12/15/24 17:33 BP 133/72 12/15/24 17:33 Pulse Ox 98 12/15/24 17:33 FiO2 Intake & Output 12/15/24 12/15/24 12/16/24 06:59 18:59 06:59 Intake Total 472 Balance 472 Intake: Oral 472 Other: Voiding Method Toilet Toilet # Voids 2 6 # Bowel Movements 1 1 - Exam General appearance: alert, in no apparent distress Head exam: Present: normocephalic Eye exam: Present: normal appearance, PERRL, EOMI Neck exam: Present: normal inspection. Absent: tenderness, meningismus Respiratory exam: Present: normal lung sounds bilaterally Cardiovascular Exam: Present: regular rate, normal rhythm GI/Abdominal exam: Present: soft. Absent: tenderness Extremities exam: Present: normal inspection Neurological exam: Present: alert, oriented X3, CN II-XII intact. Absent: motor sensory deficit Psychiatric exam: Present: normal affect, normal mood Skin exam: Present: normal color - Labs CBC & Chem 7: 12/15/24 07:26 12/15/24 07:26 Labs: Abnormal Lab Results - Last 24 Hours (Table) 12/14/24 12/15/24 12/15/24 Range/Units 11:33 07: 07:26 RBC 3.35 L (4.40-5.60) 10*6/uL Hgb 9.3 L (13.0-17.0) g/dL Hct 29.2 L (39.6-50.0) % MCHC 31.8 L (32.0-37.0) g/dL Lymphocytes # 0.77 L (0.90-5.00) 10*3/uL Sodium 131 L (137-145) mmol/L Potassium 5.9 H (3.5-5.1) mmol/L Creatinine 1.29 H (0.66-1.25) mg/dL POC Glucose (mg/dL) (70-110) mg/dL Hemoglobin A1c 7.2 H (<=6.0) % 12/15/24 12/15/24 12/15/24 Range/Units 12:12 17:05 20:03 RBC (4.40-5.60) 10*6/uL Hgb (13.0-17.0) g/dL Hct (39.6-50.0) % MCHC (32.0-37.0) g/dL Lymphocytes # (0.90-5.00) 10*3/uL Sodium (137-145) mmol/L Potassium (3.5-5.1) mmol/L Creatinine (0.66-1.25) mg/dL POC Glucose (mg/dL) 201 H 240 H 226 H (70-110) mg/dL Hemoglobin A1c (<=6.0) % Microbiology - Last 24 Hours (Table) 12/13/24 11:43 Blood Culture - Preliminary Blood 12/14/24 21:32 Gram Stain - Preliminary Sputum Assessment and Plan Assessment: 1. Community-acquired pneumonia -Chest x-ray reveals right basilar infiltrate; patient has been placed on IV Rocephin and azithromycin - Will order sputum and blood culture - Monitor CBC, CRP and procalcitonin - Consult pulmonary 2. Bradycardia; EKG showing Mobitz type I AV block - Patient has been worked up for bradycardia in the past; has Holter monitor in place - Has been recommended pacemaker in the past and has refused - We will continue on telemetry Consult cardiology 3. Syncope/presyncope -Patient has been placed on Holter monitor and was found to have bradycardia with Mobitz type I second-degree AV block - Patient has been suggested workup for possible pacemaker placement and has refused in the past 4. Paroxysmal atrial fibrillation; patient remains anticoagulated on Eliquis 2.5 mg twice daily 5. Hypertension; Trental 400 mg 3 times daily 6. Hyperlipidemia; Lipitor 40 mg nightly 7. Coronary artery disease; cardiac catheterization in March 2024 revealed nonobstructive CAD 8. Diabetes mellitus type 2; Amaryl 8 mg daily as needed 9. BPH; continue home dose of Flomax DVT prophylaxis; SCDs/Eliquis CODE STATUS; full code
[2024-12-15] MEDS ORDERED: DEXTROSE 50% SYRINGE 50 ML IVP PRN ×2 (21:51)
[2024-12-15] MEDS: BENZOCAINE/MENTHOL LOZENG 1 EACH LOZENGE MUCOUS MEM PRN (22:09)
[2024-12-15] MEDS: INSULIN LISPRO (HumaLOG) 100 UNIT/ML 10 mL VL SQ SCH (22:09)
[2024-12-16 06:17] LABS: Glucose,Whole Blood 146 mg/dL (70-110)
[2024-12-16 08:15] VITALS: BP 165/68; PULSE 69; RESP 17; TEMP 97.7
[2024-12-16 08:36] LABS: Basophils # (A) 0.03 X 10*3/uL (0.00-0.10); Basophils % (A) 0.6 %; Eosinophils # (A) 0.23 X 10*3/uL (0.04-0.35); Eosinophils % (A) 4.5 %; HCT 31.1 % (39.6-50.0); HGB 9.9 g/dL (13.0-17.0); Lymphocytes % (A) 17.7 %; MCH 28.1 pg (27.0-32.0); MCHC 31.8 g/dL (32.0-37.0); MCV 88.4 FL (80.0-97.0); Mean Platelet Volume 10.8 FL (9.5-12.2); Monocytes # (A) 0.61 X 10*3/uL (0.20-1.00); NRBC Per 100 WBC 0 X 10*3/uL (0.00-0.01); Neutrophils # (A) 3.31 X 10*3/uL (1.80-7.70); Platelet Count 284 X 10*3/uL (140-440); RBC 3.52 X 10*6/uL (4.40-5.60); RDW 13.7 % (11.5-14.5); WBC 5.09 X 10*3/uL (4.50-10.00)
[2024-12-16 08:51] LABS: BUN/Creat Ratio 12.29 Ratio (12.00-20.00); Blood Urea Nitrogen 17.2 mg/dL (9.0-27.0); Calcium 9.2 mg/dL (8.7-10.3); Carbon Dioxide 24.9 mmol/L (21.6-31.8); Chloride 99 mmol/L (96-109); Glucose 248 mg/dL (70-110); Potassium 6.1 mmol/L (3.5-5.5); Sodium 133 mmol/L (135-145)
[2024-12-16] MEDS: CALCIUM GLUCONATE IN NACL 1 GM in SALINE 1 100ML.BAG IVPB ONE (10:43)
[2024-12-16 10:50] LABS: Glucose,Whole Blood 242 mg/dL (70-110)
[2024-12-16] MEDS: DEXTROSE 50% SYRINGE 50 ML IVP STA (10:51)
[2024-12-16] MEDS: INSULIN REGULAR 100 UNIT/ML VIAL (IV) IV ONE (10:52)
[2024-12-16 12:25] LABS: Glucose,Whole Blood 84 mg/dL (70-110)
[2024-12-16] MEDS: SODIUM ZIRCONIUM CYCLOSILICATE 10 GM PACKET PO ONE (15:23)
[2024-12-16] MEDS ORDERED: INSULIN LISPRO (HumaLOG) 100 UNIT/ML 10 mL VL SQ SCH (21:52)
== END 2024-12-16 15:51 | disposition home or self-care (01) | DRG 309 ==
LOC: EC 08:13 → 6NMEDSUR 13:16 → OBSVTOIN 13:17 → 6NMEDSUR 13:48
PROVIDERS: ADMIT Internal Medicine; ATTEND Internal Medicine
DX: R00.1 Bradycardia, unspecified (principal); N17.9 Acute kidney failure, unspecified; E11.22 Type 2 diabetes mellitus with diabetic chronic kidney disease; I12.9 Hypertensive chronic kidney disease with stage 1 through stage 4 chronic kidney disease, or unspecified chronic kidney disease; I48.0 Paroxysmal atrial fibrillation; E11.649 Type 2 diabetes mellitus with hypoglycemia without coma; Z79.01 Long term (current) use of anticoagulants; E78.5 Hyperlipidemia, unspecified; N18.2 Chronic kidney disease, stage 2 (mild); I25.10 Atherosclerotic heart disease of native coronary artery without angina pectoris; I44.1 Atrioventricular block, second degree; N40.0 Benign prostatic hyperplasia without lower urinary tract symptoms; W19.XXXA Unspecified fall, initial encounter; Z79.84 Long term (current) use of oral hypoglycemic drugs; Z79.899 Other long term (current) drug therapy; Z95.0 Presence of cardiac pacemaker; T50.1X5A Adverse effect of loop [high-ceiling] diuretics, initial encounter; X58.XXXA Exposure to other specified factors, initial encounter; Z87.19 Personal history of other diseases of the digestive system
CPT/HCPCS: 36415; 70450; 71046; 71250; 80048; 80053; 80061; 81003; 83036; 83605; 83735; 83880; 84132; 84145; 84443; 84484; 85025; 85610; 85730; 87040; 87070; 87205; 87449; 93005; 96361; 96365; 99285

== ENCOUNTER 2025-02-11 01:14 | Emergency (ER) | payer MEDICARE ==
[2025-02-11 01:18] LABS: Glucose,Whole Blood 90 mg/dL (70-110)
[2025-02-11 01:21] VITALS: RESP 18; TEMP 98.5
--- NOTE | 2025-02-11 01:39 | ED ---
Recheck HPI - General Chief Complaint: Recheck/Abnormal Lab/Rx Stated Complaint: Hypoglycemia Time Seen by Provider: 02/11/25 01:18 Source: patient, RN notes reviewed, old records reviewed Mode of arrival: EMS Limitations: no limitations - History of Present Illness Initial Comments: This is a 84-year-old male presented for low blood sugar after initially thinking his blood sugar was high it took more of his blood sugar medication at home. EMS arrived noting blood sugar to be low gave patient glucose patient was able to eat or drink here in the ER MD Complaint: abnormal lab (low BS) -: hour(s) Returns Today for: Called Because of Abnormal Lab/Test Symptoms Since Prior Visit: no new symptoms Context: called for abnormal lab result Associated Symptoms: none - Related Data Home Medications Medication Instructions Recorded Confirmed Atorvastatin [Lipitor] 40 mg PO DAILY 11/20/20 02/11/25 Cariprazine HCl [Vraylar] 3 mg PO DAILY 11/20/20 02/11/25 Cholecalciferol (Vitamin D3) 125 mcg PO DAILY 11/20/20 02/11/25 [Vitamin D3 (5000 Iu)] Ferrous Sulfate [Iron (65 MG 325 mg PO DAILY 11/20/20 02/11/25 Elemental)] Gabapentin 300 mg PO DAILY 11/20/20 02/11/25 Glimepiride [Amaryl] 8 mg PO DAILY 11/20/20 02/11/25 L.acidoph,Paracasei, B.lactis 1 cap PO DAILY 11/20/20 02/11/25 [Probiotic] Multivitamins, Thera [Multivitamin 1 tab PO DAILY 11/20/20 02/11/25 (formulary)] Tamsulosin [Flomax] 0.4 mg PO BID 11/20/20 02/11/25 buPROPion XL [Wellbutrin XL] 150 mg PO DAILY 11/20/20 02/11/25 Pentoxifylline [TRENtal] 400 mg PO AC-TID 05/13/24 02/11/25 Benzonatate [Tessalon Perle] 200 mg PO TID PRN 11/19/24 02/11/25 Cyanocobalamin (Vitamin B-12) 2,000 mcg PO DAILY 11/19/24 02/11/25 [Vitamin B-12] Folic Acid 1 mg PO DAILY 11/19/24 02/11/25 Gabapentin [Neurontin] 600 mg PO HS 11/19/24 02/11/25 Pantoprazole [Protonix] 40 mg PO BID 11/19/24 02/11/25 Active Mind(Otc) 1 tab PO DAILY 12/13/24 02/11/25 Icaps 1 cap PO DAILY 12/13/24 02/11/25 Magnesium 30mg 30 mg PO DAILY 12/13/24 02/11/25 Vitamin B Complex 1 cap PO DAILY 12/13/24 02/11/25 Zinc Gluconate [Zinc] 50 mg PO DAILY 12/13/24 02/11/25 Benzocaine/Menthol Lozeng [Cepacol 1 lozenge MUCOUS MEM Q4HR PRN 02/11/25 02/11/25 lozenge] Bicalutamide [Casodex] 50 mg PO DAILY 02/11/25 02/11/25 Furosemide [Lasix] 40 mg PO DAILY 02/11/25 02/11/25 Ketoconazole 2% Cream [Nizoral 2%] 1 applic TOPICAL DAILY 02/11/25 02/11/25 Midodrine [ProAmatine] 5 mg PO BID PRN 02/11/25 02/11/25 Pioglitazone [Actos] 30 mg PO DAILY 02/11/25 02/11/25 Previous Rx's Medication Instructions Recorded Apixaban [Eliquis] 2.5 mg PO BID #60 tab 12/16/24 metFORMIN HCL [Glucophage] 1,000 mg PO BID 30 Days #120 tab 12/16/24 Allergies Allergy/AdvReac Type Severity Reaction Status Date / Time No Known Allergies Allergy Verified 02/11/25 12:08 Review of Systems ROS Statement: Those systems with pertinent positive or pertinent negative responses have been documented in the HPI. ROS Other: All systems not noted in ROS Statement are negative. Past Medical History Past Medical History: Diabetes Mellitus Additional Past Medical History / Comment(s): blood clots, neuropathy, prostate issues, hernia, History of Any Multi-Drug Resistant Organisms: None Reported Past Surgical History: No Surgical Hx Reported Past Psychological History: No Psychological Hx Reported Smoking Status: Never smoker Past Alcohol Use History: None Reported Past Drug Use History: None Reported General Exam General appearance: alert, in no apparent distress Head exam: Present: atraumatic, normocephalic, normal inspection Eye exam: Present: normal appearance, PERRL, EOMI. Absent: scleral icterus, conjunctival injection, periorbital swelling ENT exam: Present: normal exam, mucous membranes moist Neck exam: Present: normal inspection. Absent: tenderness, meningismus, lymphadenopathy Respiratory exam: Present: normal lung sounds bilaterally. Absent: respiratory distress, wheezes, rales, rhonchi, stridor Cardiovascular Exam: Present: regular rate, normal rhythm, normal heart sounds. Absent: systolic murmur, diastolic murmur, rubs, gallop, clicks GI/Abdominal exam: Present: soft, normal bowel sounds. Absent: distended, tenderness, guarding, rebound, rigid Extremities exam: Present: normal inspection, full ROM, normal capillary refill. Absent: tenderness, pedal edema, joint swelling, calf tenderness Back exam: Present: normal inspection Neurological exam: Present: alert, oriented X3, CN II-XII intact Psychiatric exam: Present: normal affect, normal mood Skin exam: Present: warm, dry, intact, normal color. Absent: rash Course Vital Signs 02/11/25 02/11/25 01:17 03:44 Temperature 98.5 F Pulse Rate 65 60 Respiratory 18 18 Rate Blood Pressure 126/57 132/86 O2 Sat by Pulse 95 98 Oximetry - Reevaluation(s) Reevaluation #1: 02/11/25 01:39 medical record is reviewed Reevaluation #2: 02/11/25 03:26 Patient symptoms improved throughout ER stay able to eat and drink Reevaluation #3: 02/11/25 03:26 Patient informed of results questions answered Reevaluation #4: Was pt. sent in by a medical professional or institution (, PA, PROGRAM ENGINEER, urgent care, hospital, or assisted...) When possible be specific @ -no Did you speak to anyone other than the patient for history (EMS, parent, family, police, friend...)? What history was obtained from this source @ -no Did you review nursing and triage notes (agree or disagree)? Why? @ -agree Are old charts reviewed (outside hosp., previous admission, EMS record, old EKG, old radiological studies, urgent care reports/EKG's, assisted records)? Report findings @ -yes Differential Diagnosis (chest pain, altered mental status, abdominal pain women, abdominal pain men, vaginal bleeding, weakness, fever, dyspnea, syncope, headache, dizziness, GI bleed, back pain, seizure, CVA, palpatations, mental health, musculoskeletal)? @ -prior EKG interpreted by me (3pts min.). @ -no X-rays interpreted by me (1pt min.). @ -no CT interpreted by me (1pt min.). @ -no U/S interpreted by me (1pt. min.). @ -no What testing was considered but not performed or refused? (CT, X-rays, U/S, labs)? Why? @ -none What meds were considered but not given or refused? Why? @ -none Did you discuss the management of the patient with other professionals (professionals i.e. , PA, PROGRAM ENGINEER, lab, RT, psych nurse, geriatric social work professor, asbestos remover, teacher, chief strategy officer, top case assembler)? Give summary @ -no Was smoking cessation discussed for >3mins.? @ -no Was critical care preformed (if so, how long)? @ -no Were there social determinants of health that impacted care today? How? (Homelessness, low income, unemployed, alcoholism, drug addiction, transportation, low edu. Level, literacy, decrease access to med. care, [facility], rehab)? @ -none Was there de-escalation of care discussed even if they declined (Discuss DNR or withdrawal of care, Hospice)? DNR status @ -no What co-morbidities impacted this encounter? (DM, HTN, Smoking, COPD, CAD, Cancer, CVA, ARF, Chemo, Hep., AIDS, mental health diagnosis, sleep apnea, morbid obesity)? @ -none Was patient admitted / discharged? Hospital course, mention meds given and route, prescriptions, significant lab abnormalities, going to OR and other pertinent info. @ - 84 male to the ER for evaluation of low blood sugar. Patient takes oral diabetic therapy, blood sugars elevated took increased medications blood sugar was low EMS gave call symptoms improved patient ate here in the ER symptoms continue to improve he has no complaints and can be discharged home Discharge Undiagnosed new problem with uncertain prognosis? @ -no Drug Therapy requiring intensive monitoring for toxicity (Heparin, Nitro, Insulin, Cardizem)? @ -no Were any procedures done? @ -no Diagnosis/symptom? @ -Hyperglycemia Acute, or Chronic, or Acute on Chronic? @ -Acute Uncomplicated (without systemic symptoms) or Complicated (systemic symptoms)? @ -Complicated Side effects of treatment? @ -no Exacerbation, Progression, or Severe Exacerbation? @ -exacerbation Poses a threat to life or bodily function? How? (Chest pain, USA, [place], pneumonia, PE, COPD, DKA, ARF, appy, cholecystitis, CVA, Diverticulitis, Homicidal, Suicidal, threat to staff... and all critical care pts) @ -yes extremes of age with hypoglycemia Medical Decision Making - Medical Decision Making 84 male to the ER for evaluation of low blood sugar. Patient takes oral diabetic therapy, blood sugars elevated took increased medications blood sugar was low EMS gave call symptoms improved patient ate here in the ER symptoms continue to improve he has no complaints and can be discharged home - Lab Data Result diagrams: 02/11/25 04:41 02/11/25 04:41 Lab Results 02/11/25 02/11/25 02/11/25 Range/Units 01:17 04:25 04:41 WBC 9.40 (4.50-10.00) 10*3/uL RBC 3.61 L (4.40-5.60) 10*6/uL Hgb 10.3 L (13.0-17.0) g/dL Hct 31.1 L (39.6-50.0) % MCV 86.1 (80.0-97.0) fL MCH 28.5 (27.0-32.0) pg MCHC 33.1 (32.0-37.0) g/dL Plt Count 225 (140-440) 10*3/uL MPV 10.2 (9.5-12.2) fL Immature Gran % (Auto) 0.4 % Neutrophils % 73.2 % Lymphocytes % 16.6 % Monocytes % 8.6 % Eosinophils % 1.0 % Basophils % 0.2 % Immature Gran # 0.04 (0.00-0.04) 10*3/uL Neutrophils # 6.88 (1.80-7.70) 10*3/uL Lymphocytes # 1.56 (0.90-5.00) 10*3/uL Monocytes # 0.81 (0.20-1.00) 10*3/uL Eosinophils # 0.09 (0.04-0.35) 10*3/uL Basophils # 0.02 (0.00-0.10) 10*3/uL PT (10.0-12.5) sec INR (<1.2) APTT (22.0-30.0) sec Sodium (137-145) mmol/L Potassium (3.5-5.1) mmol/L Chloride (98-107) mmol/L Carbon Dioxide (22-30) mmol/L Anion Gap mmol/L BUN (9-20) mg/dL Creatinine (0.66-1.25) mg/dL Est GFR (CKD-EPI)AfAm (>60 ml/min/1.73 sqM) Est GFR (CKD-EPI)NonAf (>60 ml/min/1.73 sqM) Glucose (74-99) mg/dL POC Glucose (mg/dL) 90 44 L* (70-110) mg/dL POC Glu Rivet Catcher ID Mely Guerra Plasma Lactic Acid Sarabjit (0.7-2.0) mmol/L Calcium (8.4-10.2) mg/dL Phosphorus (2.5-4.5) mg/dL Magnesium (1.6-2.3) mg/dL Total Bilirubin (0.2-1.3) mg/dL AST (17-59) U/L ALT (4-49) U/L Alkaline Phosphatase (38-126) U/L Troponin I (0.000-0.034) ng/mL NT-Pro-B Natriuret Pep pg/mL Total Protein (6.3-8.2) g/dL Albumin (3.5-5.0) g/dL 02/11/25 02/11/25 02/11/25 Range/Units 04:41 04:41 04:41 WBC (4.50-10.00) 10*3/uL RBC (4.40-5.60) 10*6/uL Hgb (13.0-17.0) g/dL Hct (39.6-50.0) % MCV (80.0-97.0) fL MCH (27.0-32.0) pg MCHC (32.0-37.0) g/dL Plt Count (140-440) 10*3/uL MPV (9.5-12.2) fL Immature Gran % (Auto) % Neutrophils % % Lymphocytes % % Monocytes % % Eosinophils % % Basophils % % Immature Gran # (0.00-0.04) 10*3/uL Neutrophils # (1.80-7.70) 10*3/uL Lymphocytes # (0.90-5.00) 10*3/uL Monocytes # (0.20-1.00) 10*3/uL Eosinophils # (0.04-0.35) 10*3/uL Basophils # (0.00-0.10) 10*3/uL PT 10.8 (10.0-12.5) sec INR 1.0 (<1.2) APTT 26.9 (22.0-30.0) sec Sodium 133 L (137-145) mmol/L Potassium 4.3 (3.5-5.1) mmol/L Chloride 100 (98-107) mmol/L Carbon Dioxide 22 (22-30) mmol/L Anion Gap 11 mmol/L BUN 22 H (9-20) mg/dL Creatinine 1.54 H (0.66-1.25) mg/dL Est GFR (CKD-EPI)AfAm 47 (>60 ml/min/1.73 sqM) Est GFR (CKD-EPI)NonAf 41 (>60 ml/min/1.73 sqM) Glucose 37 L* (74-99) mg/dL POC Glucose (mg/dL) (70-110) mg/dL POC Glu Rivet Catcher ID Plasma Lactic Acid Sarabjit 1.3 (0.7-2.0) mmol/L Calcium 9.2 (8.4-10.2) mg/dL Phosphorus 3.0 (2.5-4.5) mg/dL Magnesium 1.8 (1.6-2.3) mg/dL Total Bilirubin 0.5 (0.2-1.3) mg/dL AST 27 (17-59) U/L ALT 16 (4-49) U/L Alkaline Phosphatase 53 (38-126) U/L Troponin I (0.000-0.034) ng/mL NT-Pro-B Natriuret Pep 400 pg/mL Total Protein 6.8 (6.3-8.2) g/dL Albumin 4.0 (3.5-5.0) g/dL 02/11/25 Range/Units 04:41 WBC (4.50-10.00) 10*3/uL RBC (4.40-5.60) 10*6/uL Hgb (13.0-17.0) g/dL Hct (39.6-50.0) % MCV (80.0-97.0) fL MCH (27.0-32.0) pg MCHC (32.0-37.0) g/dL Plt Count (140-440) 10*3/uL MPV (9.5-12.2) fL Immature Gran % (Auto) % Neutrophils % % Lymphocytes % % Monocytes % % Eosinophils % % Basophils % % Immature Gran # (0.00-0.04) 10*3/uL Neutrophils # (1.80-7.70) 10*3/uL Lymphocytes # (0.90-5.00) 10*3/uL Monocytes # (0.20-1.00) 10*3/uL Eosinophils # (0.04-0.35) 10*3/uL Basophils # (0.00-0.10) 10*3/uL PT (10.0-12.5) sec INR (<1.2) APTT (22.0-30.0) sec Sodium (137-145) mmol/L Potassium (3.5-5.1) mmol/L Chloride (98-107) mmol/L Carbon Dioxide (22-30) mmol/L Anion Gap mmol/L BUN (9-20) mg/dL Creatinine (0.66-1.25) mg/dL Est GFR (CKD-EPI)AfAm (>60 ml/min/1.73 sqM) Est GFR (CKD-EPI)NonAf (>60 ml/min/1.73 sqM) Glucose (74-99) mg/dL POC Glucose (mg/dL) (70-110) mg/dL POC Glu Rivet Catcher ID Plasma Lactic Acid Sarabjit (0.7-2.0) mmol/L Calcium (8.4-10.2) mg/dL Phosphorus (2.5-4.5) mg/dL Magnesium (1.6-2.3) mg/dL Total Bilirubin (0.2-1.3) mg/dL AST (17-59) U/L ALT (4-49) U/L Alkaline Phosphatase (38-126) U/L Troponin I 0.014 (0.000-0.034) ng/mL NT-Pro-B Natriuret Pep pg/mL Total Protein (6.3-8.2) g/dL Albumin (3.5-5.0) g/dL - EKG Data -: EKG Interpreted by Me (EKG is Afib 60 QRS 113 QTc 423) Disposition Clinical Impression: Hypoglycemia Disposition: HOME SELF-CARE Condition: Good Instructions (If sedation given, give patient instructions): Hypoglycemia in a Person with Diabetes (ED) Is patient prescribed a controlled substance at d/c from ED?: No Referrals: Abi Mix DO [Primary Care Provider] - 1-2 days Time of Disposition: 03:30
[2025-02-11 04:11] VITALS: BP 132/86; PULSE 60
[2025-02-11] MEDS: DEXTROSE 50% SYRINGE 50 ML IVP STA (04:26)
[2025-02-11 04:27] LABS: Glucose,Whole Blood 44 mg/dL (70-110)
[2025-02-11] MEDS: SODIUM CHLORIDE 0.9% 1,000 ML IV ONE (04:28)
[2025-02-11] MEDS ORDERED: DEXTROSE 5%-0.45% NACL 1,000 ML IV ONE (04:34)
[2025-02-11 04:46] LABS: Basophils # (A) 0.02 10*3/uL (0.00-0.10); Basophils % (A) 0.2 %; Eosinophils # (A) 0.09 10*3/uL (0.04-0.35); HCT 31.1 % (39.6-50.0); HGB 10.3 g/dL (13.0-17.0); Lymphocytes # (A) 1.56 10*3/uL (0.90-5.00); Lymphocytes % (A) 16.6 %; MCH 28.5 pg (27.0-32.0); MCHC 33.1 g/dL (32.0-37.0); MCV 86.1 fL (80.0-97.0); Mean Platelet Volume 10.2 fL (9.5-12.2); Monocytes # (A) 0.81 10*3/uL (0.20-1.00); Monocytes % (A) 8.6 %; Neutrophils # (A) 6.88 10*3/uL (1.80-7.70); Neutrophils % (A) 73.2 %; Platelet Count 225 10*3/uL (140-440); RBC 3.61 10*6/uL (4.40-5.60); RDW 13.8 % (11.5-14.5)
[2025-02-11 04:56] LABS: Partial Thromboplastin Time 26.9 sec (22.0-30.0); Prothrombin Time 10.8 sec (10.0-12.5)
[2025-02-11 05:02] LABS: ALT 16 U/L (4-49); AST 27 U/L (17-59); African American GFR (CKD) 47 (>60 ml/min/1.73 sqM); Alkaline Phosphatase 53 U/L (38-126); Anion Gap 11 mmol/L; Blood Urea Nitrogen 22 mg/dL (9-20); Calcium 9.2 mg/dL (8.4-10.2); Carbon Dioxide 22 mmol/L (22-30); Chloride 100 mmol/L (98-107); Magnesium 1.8 mg/dL (1.6-2.3); Non-African American GFR(CKD) 41 (>60 ml/min/1.73 sqM); Potassium 4.3 mmol/L (3.5-5.1); Sodium 133 mmol/L (137-145); Total Bilirubin 0.5 mg/dL (0.2-1.3); Total Protein 6.8 g/dL (6.3-8.2)
[2025-02-11 05:11] LABS: NT-Pro-B-Type Natriuretic Pept 400 pg/mL
[2025-02-11 05:54] LABS: Glucose 37 mg/dL (74-99)
== END 2025-02-11 04:45 | disposition home or self-care (01) ==
LOC: EC 01:14
DX: E11.649 Type 2 diabetes mellitus with hypoglycemia without coma (principal)
CPT/HCPCS: 36415; 80053; 83605; 83735; 83880; 84100; 84484; 85025; 85610; 85730; 96374; 99285

== ENCOUNTER 2025-02-11 04:45 | Observation (INO) | payer MEDICARE ==
--- NOTE | 2025-02-11 04:54 | ED ---
Fall HPI - General Stated Complaint: Fall Time Seen by Provider: 02/11/25 04:52 Source: old records reviewed Mode of arrival: ambulatory Limitations: no limitations - History of Present Illness Initial Comments: This is an 84-year-old male to the ER for evaluation of recurrent hypoglycemia. 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: yes, by family Place Fall Occurred: home Loss of Consciousness: none Prolonged Down Time?: no Symptoms Prior to Fall: none Location: head Severity: severe Severity scale (1-10): 6 Quality: burning Context: tripped/slipped Associated Symptoms: denies - Related Data Home Medications Medication Instructions Recorded Confirmed Atorvastatin [Lipitor] 40 mg PO DAILY 11/20/20 02/11/25 Cariprazine HCl [Vraylar] 3 mg PO DAILY 11/20/20 02/11/25 Cholecalciferol (Vitamin D3) 125 mcg PO DAILY 11/20/20 02/11/25 [Vitamin D3 (5000 Iu)] Ferrous Sulfate [Iron (65 MG 325 mg PO DAILY 11/20/20 02/11/25 Elemental)] Gabapentin 300 mg PO DAILY 11/20/20 02/11/25 Glimepiride [Amaryl] 8 mg PO DAILY 11/20/20 02/11/25 L.acidoph,Paracasei, B.lactis 1 cap PO DAILY 11/20/20 02/11/25 [Probiotic] Multivitamins, Thera [Multivitamin 1 tab PO DAILY 11/20/20 02/11/25 (formulary)] Tamsulosin [Flomax] 0.4 mg PO BID 11/20/20 02/11/25 buPROPion XL [Wellbutrin XL] 150 mg PO DAILY 11/20/20 02/11/25 Pentoxifylline [TRENtal] 400 mg PO AC-TID 05/13/24 02/11/25 Benzonatate [Tessalon Perle] 200 mg PO TID PRN 11/19/24 02/11/25 Cyanocobalamin (Vitamin B-12) 2,000 mcg PO DAILY 11/19/24 02/11/25 [Vitamin B-12] Folic Acid 1 mg PO DAILY 11/19/24 02/11/25 Gabapentin [Neurontin] 600 mg PO HS 11/19/24 02/11/25 Pantoprazole [Protonix] 40 mg PO BID 11/19/24 02/11/25 Active Mind(Otc) 1 tab PO DAILY 12/13/24 02/11/25 Icaps 1 cap PO DAILY 12/13/24 02/11/25 Magnesium 30mg 30 mg PO DAILY 12/13/24 02/11/25 Vitamin B Complex 1 cap PO DAILY 12/13/24 02/11/25 Zinc Gluconate [Zinc] 50 mg PO DAILY 12/13/24 02/11/25 Benzocaine/Menthol Lozeng [Cepacol 1 lozenge MUCOUS MEM Q4HR PRN 02/11/25 02/11/25 lozenge] Bicalutamide [Casodex] 50 mg PO DAILY 02/11/25 02/11/25 Furosemide [Lasix] 40 mg PO DAILY 02/11/25 02/11/25 Ketoconazole 2% Cream [Nizoral 2%] 1 applic TOPICAL DAILY 02/11/25 02/11/25 Midodrine [ProAmatine] 5 mg PO BID PRN 02/11/25 02/11/25 Pioglitazone [Actos] 30 mg PO DAILY 02/11/25 02/11/25 Previous Rx's Medication Instructions Recorded Apixaban [Eliquis] 2.5 mg PO BID #60 tab 12/16/24 metFORMIN HCL [Glucophage] 1,000 mg PO BID 30 Days #120 tab 12/16/24 Allergies Allergy/AdvReac Type Severity Reaction Status Date / Time No Known Allergies Allergy Verified 02/11/25 12:08 Review of Systems ROS Statement: Those systems with pertinent positive or pertinent negative responses have been documented in the HPI. ROS Other: All systems not noted in ROS Statement are negative. Past Medical History Past Medical History: Diabetes Mellitus Additional Past Medical History / Comment(s): blood clots, neuropathy, prostate issues, hernia, History of Any Multi-Drug Resistant Organisms: None Reported Past Surgical History: No Surgical Hx Reported Past Psychological History: No Psychological Hx Reported Smoking Status: Never smoker Past Alcohol Use History: None Reported Past Drug Use History: None Reported General Exam General appearance: alert, in no apparent distress Head exam: Present: atraumatic, normocephalic, normal inspection Eye exam: Present: normal appearance, PERRL, EOMI. Absent: scleral icterus, conjunctival injection, periorbital swelling ENT exam: Present: normal exam, mucous membranes moist Neck exam: Present: normal inspection. Absent: tenderness, meningismus, lymphadenopathy Respiratory exam: Present: normal lung sounds bilaterally. Absent: respiratory distress, wheezes, rales, rhonchi, stridor Cardiovascular Exam: Present: bradycardia, irregular rhythm, normal heart sounds. Absent: systolic murmur, diastolic murmur, rubs, gallop, clicks GI/Abdominal exam: Present: soft, normal bowel sounds. Absent: distended, tenderness, guarding, rebound, rigid Extremities exam: Present: normal inspection, full ROM, normal capillary refill. Absent: tenderness, pedal edema, joint swelling, calf tenderness Back exam: Present: normal inspection Neurological exam: Present: alert, oriented X3, CN II-XII intact Psychiatric exam: Present: normal affect, normal mood Skin exam: Present: warm, dry, intact, normal color. Absent: rash Course Vital Signs 02/11/25 02/11/25 05:00 06:35 Pulse Rate 61 54 L Respiratory 18 18 Rate Blood Pressure 139/58 148/70 O2 Sat by Pulse 98 95 Oximetry - Reevaluation(s) Reevaluation #1: 02/11/25 05:36 Medical records reviewed Reevaluation #2: 02/11/25 05:36 Patient blood sugar improving here in the ER Reevaluation #3: 02/11/25 05:36 Patient informed of results questions answered Reevaluation #4: Was pt. sent in by a medical professional or institution (, PA, RESTAURANT KITCHEN MANAGER, urgent care, hospital, or senior care...) When possible be specific @ -no Did you speak to anyone other than the patient for history (EMS, parent, family, police, friend...)? What history was obtained from this source @ -no Did you review nursing and triage notes (agree or disagree)? Why? @ -agree Are old charts reviewed (outside hosp., previous admission, EMS record, old EKG, old radiological studies, urgent care reports/EKG's, senior care records)? Report findings @ -yes Differential Diagnosis (chest pain, altered mental status, abdominal pain women, abdominal pain men, vaginal bleeding, weakness, fever, dyspnea, syncope, headache, dizziness, GI bleed, back pain, seizure, CVA, palpatations, mental health, musculoskeletal)? @ -prior EKG interpreted by me (3pts min.). @ -yes X-rays interpreted by me (1pt min.). @ -yes negative for acute disease CT interpreted by me (1pt min.). @ -yes negative for acute disease U/S interpreted by me (1pt. min.). @ -no What testing was considered but not performed or refused? (CT, X-rays, U/S, labs)? Why? @ -none What meds were considered but not given or refused? Why? @ -none Did you discuss the management of the patient with other professionals (professionals i.e. , PA, RESTAURANT KITCHEN MANAGER, lab, RT, psych nurse, psychotherapist social worker, sulfonation equipment operator, teacher, chief mechanical officer, director of casework)? Give summary @ -no Was smoking cessation discussed for >3mins.? @ -no Was critical care preformed (if so, how long)? @ -no Were there social determinants of health that impacted care today? How? (Homelessness, low income, unemployed, alcoholism, drug addiction, transportation, low edu. Level, literacy, decrease access to med. care, [facility], rehab)? @ -none Was there de-escalation of care discussed even if they declined (Discuss DNR or withdrawal of care, Hospice)? DNR status @ -no What co-morbidities impacted this encounter? (DM, HTN, Smoking, COPD, CAD, Cancer, CVA, ARF, Chemo, Hep., AIDS, mental health diagnosis, sleep apnea, morbid obesity)? @ -none Was patient admitted / discharged? Hospital course, mention meds given and route, prescriptions, significant lab abnormalities, going to OR and other pertinent info. @ - 84 male with recurrent hypoglycemia here in the ER patient will be admitted for monitoring of recurrent low blood sugar Admitted Undiagnosed new problem with uncertain prognosis? @ -no Drug Therapy requiring intensive monitoring for toxicity (Heparin, Nitro, Insulin, Cardizem)? @ -no Were any procedures done? @ -no Diagnosis/symptom? @ -Recurrent hypoglycemia with hypoglycemic syncope fall traumatic head injury Acute, or Chronic, or Acute on Chronic? @ -Acute Uncomplicated (without systemic symptoms) or Complicated (systemic symptoms)? @ -Complicated Side effects of treatment? @ -no Exacerbation, Progression, or Severe Exacerbation? @ -exacerbation Poses a threat to life or bodily function? How? (Chest pain, [place], [place], pneumonia, PE, COPD, DKA, ARF, appy, cholecystitis, CVA, Diverticulitis, Homicidal, Katz icidal, threat to staff... and all critical care pts) @ -yes low blood sugar and extreme of age Reevaluation #5: Differential Weakness: Hypoglycemia, shock, sepsis, hyponatremia, anemia, infection, SD, ETOH, adverse medicine reaction, overdose, stroke, this is not meant to be an all-inclusive list. - Consultations Consultation #1: Spoke with [facility] who agrees to admit this patient Medical Decision Making - Medical Decision Making 84 male with recurrent hypoglycemia here in the ER patient will be admitted for monitoring of recurrent low blood sugar - Lab Data Result diagrams: 02/11/25 13:54 Lab Results 02/11/25 Range/Units 05:28 POC Glucose (mg/dL) 104 (70-110) mg/dL POC Glu Gas Treater ID Sanjana Rice - EKG Data -: EKG Interpreted by Me (EKG is A-fib 44 QRS 114 QTc 394) - Radiology Data Radiology results: report reviewed (CT brain C-spine chest and pelvis x-ray negative traumatic injury), image reviewed Disposition Clinical Impression: Hypoglycemia, Fall, Bradycardia, Atrial fibrillation, Head injury Disposition: ADMITTED IP TO THIS HOSP Condition: Fair Is patient prescribed a controlled substance at d/c from ED?: No Time of Disposition: 06:00
[2025-02-11] MEDS: SODIUM CHLORIDE 0.9% 1,000 ML IV ONE (04:55)
--- NOTE | 2025-02-11 04:56 | CT ---
EXAM: CT Head Without Intravenous Contrast CLINICAL HISTORY: ITS.REASON CT Reason: ams TECHNIQUE: Axial computed tomography images of the head/brain without intravenous contrast. CTDI is 45.2 mGy and DLP is 1115 mGy-cm. This CT exam was performed using one or more of the following dose reduction techniques: automated exposure control, adjustment of the mA and/or kV according to patient size, and/or use of iterative reconstruction technique. COMPARISON: No relevant prior studies available. FINDINGS: No acute intracranial hemorrhage. No midline shift or mass effect. The territorial cummins-white matter differentiation is maintained throughout. Age-related cerebral volume loss. Periventricular and subcortical white matter hypoattenuation, consistent with chronic microangiopathy. The visualized orbits appear grossly unremarkable. The calvarium is intact. The visualized paranasal sinuses and mastoid air cells are grossly clear. IMPRESSION: No acute intracranial hemorrhage, midline shift, or mass effect. EXAM: CT Cervical Spine Without Intravenous Contrast CLINICAL HISTORY: ITS.REASON CT Reason: ams TECHNIQUE: Axial computed tomography images of the cervical spine without intravenous contrast. CTDI is 12.3 mGy and DLP is 353.6 mGy-cm. This CT exam was performed using one or more of the following dose reduction techniques: automated exposure control, adjustment of the mA and/or kV according to patient size, and/or use of iterative reconstruction technique. COMPARISON: No relevant prior studies available. FINDINGS: The vertebral body heights are maintained. The craniocervical junction is intact. The atlanto-dens interval is maintained. The dens is intact. There is no spondylolisthesis. Multilevel cervical spondylosis and degenerative disc disease. Straightening of the cervical lordosis. IMPRESSION: No acute fracture or subluxation of the cervical spine.
[2025-02-11 05:03] VITALS: RESP 18
[2025-02-11] MEDS: OCTREOTIDE 100 MCG/ML INJ IVP STA (05:06)
[2025-02-11] MEDS ORDERED: NALOXONE 0.4 MG/ML 1 ML VIAL IVP STA (05:13)
[2025-02-11 05:29] LABS: Glucose,Whole Blood 104 mg/dL (70-110)
[2025-02-11] MEDS: DEXTROSE 5%-0.45% NACL 1,000 ML IV ONE (05:34)
[2025-02-11] MEDS ORDERED: NALOXONE 0.4 MG/ML 1 ML VIAL IV PRN (05:34)
[2025-02-11] MEDS ORDERED: ONDANSETRON 4 MG/2 ML VIAL IVP PRN (05:34)
--- NOTE | 2025-02-11 05:40 | XR ---
EXAM: XR Pelvis, 1 View CLINICAL HISTORY: fall TECHNIQUE: Frontal view of the pelvis. COMPARISON: No relevant prior studies available. FINDINGS: Bones/joints: Osteopenia. Mild degenerative changes. No fracture or dislocation. Soft tissues: Unremarkable. IMPRESSION: No acute findings in the pelvis.
--- NOTE | 2025-02-11 05:41 | XR ---
EXAM: XR Chest, 1 View CLINICAL HISTORY: Pt fell in waiting room post discharge, hitting his head on the floor. Pt takes Eliquis. TECHNIQUE: Frontal view of the chest. COMPARISON: to FINDINGS: Lungs: Small amount of bibasilar airspace opacities. Pleural space: Unremarkable. Heart: Mild cardiomegaly. Mediastinum: Unremarkable. Normal mediastinal contour. Bones/joints: No acute findings. IMPRESSION: Small amount of bibasilar atelectasis and/or pneumonia.
[2025-02-11 06:35] LABS: Appearance,Urine Clear (Clear); Bilirubin,Urine Negative (Negative); Blood,Urine Negative (Negative); Color,Urine Colorless; Glucose,Urine (UA) Negative (Negative); Ketones,Urine Negative (Negative); Leukocyte Esterase,Urine Negative (Negative); Nitrite,Urine Negative (Negative); Protein,Urine Negative (Negative); Specific Gravity,Urine 1.006 (1.001-1.035); Urobilinogen,Urine <2.0 mg/dL (<2.0)
[2025-02-11 12:03] LABS: Glucose,Whole Blood 331 mg/dL (70-110)
[2025-02-11 13:14] VITALS: BP 144/68; PULSE 52; TEMP 97.8
[2025-02-11] MEDS ORDERED: BENZOCAINE/MENTHOL LOZENG 1 EACH LOZENGE MUCOUS MEM PRN (13:42)
[2025-02-11] MEDS ORDERED: DEXTROSE 50% SYRINGE 50 ML IVP PRN ×2 (13:44)
[2025-02-11 14:29] LABS: African American GFR (CKD) 65 (>60 ml/min/1.73 sqM); Anion Gap 9 mmol/L; Blood Urea Nitrogen 18 mg/dL (9-20); Calcium 8.9 mg/dL (8.4-10.2); Carbon Dioxide 20 mmol/L (22-30); Chloride 103 mmol/L (98-107); Glucose 292 mg/dL (74-99); Non-African American GFR(CKD) 56 (>60 ml/min/1.73 sqM); Potassium 4.9 mmol/L (3.5-5.1); Sodium 132 mmol/L (137-145)
[2025-02-11] MEDS: NON FORMULARY DRUG (Cariprazine Hcl [Vraylar] 3 MG Capsule) PO SCH (14:56)
[2025-02-11] MEDS: APIXABAN 2.5 MG TABLET PO SCH (14:57)
[2025-02-11] MEDS: buPROPion XL 150 MG TAB.ER.24H PO SCH (14:57)
[2025-02-11] MEDS: INSULIN LISPRO (HumaLOG) 100 UNIT/ML 10 mL VL SQ SCH (15:06)
[2025-02-11 15:07] LABS: Glucose,Whole Blood 317 mg/dL (70-110)
[2025-02-11] MEDS ORDERED: PENTOXIFYLLINE 400 MG TABLET.ER PO SCH (17:30)
[2025-02-11] MEDS ORDERED: TAMSULOSIN 0.4 MG CAP.ER.24H PO SCH (21:00)
[2025-02-11] MEDS ORDERED: PANTOPRAZOLE 40 MG TABLET PO SCH (21:00)
[2025-02-12] MEDS ORDERED: GLIMEPIRIDE 4 MG TAB PO SCH (07:30)
[2025-02-12] MEDS ORDERED: CHOLECALCIFEROL 125 MCG (5000 IU) TABLET PO SCH (09:00)
[2025-02-12] MEDS ORDERED: CYANOCOBALAMIN 500 MCG TAB PO SCH (09:00)
[2025-02-12] MEDS ORDERED: BICALUTAMIDE 50 MG TAB PO SCH (09:00)
[2025-02-12] MEDS ORDERED: FERROUS SULFATE 325 MG TAB PO SCH (09:00)
[2025-02-12] MEDS ORDERED: PIOGLITAZONE 30 MG TAB PO SCH (09:00)
[2025-02-12] MEDS ORDERED: MULTIVITAMINS, THERA 1 EACH TAB PO SCH (09:00)
[2025-02-12] MEDS ORDERED: ZINC SULFATE 220 MG CAP PO SCH (09:00)
[2025-02-12] MEDS ORDERED: ATORVASTATIN 40 MG TAB PO SCH (09:00)
[2025-02-12] MEDS ORDERED: FOLIC ACID 1 MG TAB PO SCH (09:00)
--- NOTE | 2025-02-12 16:55 | P.HPIM ---
History of Present Illness H&P Date: 02/11/25 This is a pleasant 84-year-old male with medical history significant for diabetes mellitus type 2 with diabetic neuropathy, paroxysmal atrial fibrillation anticoagulated with Eliquis, hypertension, hyperlipidemia, coronary artery disease with prior cardiac catheterization in March 2024 revealing non obstructive coronary artery disease, BPH. Patient was admitted to the hospital due to episodes of hypoglycemia. Patient is a type II diabetic controlled with oral medications including metformin 1000 mg twice daily, Amaryl 8 mg daily as needed. Patient had elevated blood glucose at home and took 4 metformin tablets and since then has been having this persistent hypoglycemia. He was evaluated i n the ER at 1:30 in the morning and was discharged home however on the way out of the urgency center patient became hypoglycemic and had a fall. He is on a blood thinner for the atrial fibrillation. Head cervical spine CT reveals no acute intracranial bleed or mass effect. There is no acute fracture or subluxation of the cervical spine. Pelvics x-ray reveals no acute findings. Chest x-ray reveals small amount of bibasilar atelectasis and or pneumonia. His EKG reveals atrial fibrillation with slow ventricular response heart rate of 44. Repeat EKG reveals atrial fibrillation heart rate of 60. White blood cell count 9.40, hemoglobin 10.3, sodium of 133 a BUN of 22 creatinine of 1.54 neg ative urinalysis. Troponin level has been negative and a proBNP is 400. Patient was found to have a blood sugar of 37 with his serum blood draw. He is now admitted to the hospital in observation started on a dextrose 5% with half- normal saline running at 75 mL/h and we will continue to monitor his blood glucose. REVIEW OF SYSTEMS: CONSTITUTIONAL: No fever, no malaise, no fatigue. HEENT: No recent visual problems or hearing problems. Denied any sore throat. CARDIOVASCULAR: No chest pain, orthopnea, PND, no palpitations, no syncope. PULMONARY: No shortness of breath, no cough, no hemoptysis. GASTROINTESTINAL: No diarrhea, no nausea, no vomiting, no abdominal pain. NEUROLOGICAL: No headaches, no weakness, no numbness. HEMATOLOGICAL: Denies any bleeding or petechiae. GENITOURINARY: Denies any burning micturition, frequency, or urgency. MUSCULOSKELETAL/RHEUMATOLOGICAL: Denies any joint pain, swelling, or any muscle pain. ENDOCRINE: Denies any polyuria or polydipsia. The rest of the 14-point review of systems is negative. PHYSICAL EXAMINATION: GENERAL: The patient is alert and oriented x3, not in any acute distress. Well developed, well nourished. HEENT: Pupils are round and equally reacting to light. EOMI. No scleral icterus. No conjunctival pallor. Normocephalic, atraumatic. No pharyngeal erythema. No thyromegaly. CARDIOVASCULAR: S1 and S2 present. No murmurs, rubs, or gallops. PULMONARY: Chest is clear to auscultation, no wheezing or crackles. ABDOMEN: Soft, nontender, nondistended, normoactive bowel sounds. No palpable organomegaly. MUSCULOSKELETAL: No joint swelling or deformity. EXTREMITIES: No cyanosis, clubbing, or pedal edema. NEUROLOGICAL: Gross neurological examination did not reveal any focal deficits. SKIN: No rashes. Assessment and plan Fall because of the hypoglycemia Hypoglycemia due to overdose on oral diabetic agents Mild acute kidney injury because of the metformin Paroxysmal atrial fibrillation anticoag with Eliquis Hypertension Hyperlipidemia Diabetes mellitus type 2 with diabetic neuropathy Coronary artery disease with prior cardiac catheterization in March 2024 revealing nonobstructive coronary artery disease, BPH GI prophylaxis Full Code Continue D5 and monitor blood glucose Hold metformin for now Pending lactic acid and repeat BMP Possible D/C home later on today. The impression and plan of care has been dictated by Kait Smalls Nurse Practitioner as directed. Dr. Home MD I have performed a history and physical examination and medical decision making of this patient, discussed the same with the dictator, and agree with the dictators assessment and plan as written, documented as a scribe. Based on total visit time, I have performed more than 50% of this visit. Past Medical History Past Medical History: Diabetes Mellitus Additional Past Medical History / Comment(s): blood clots, neuropathy, prostate issues, hernia, History of Any Multi-Drug Resistant Organisms: None Reported Past Surgical History: No Surgical Hx Reported Past Psychological History: No Psychological Hx Reported Smoking Status: Never smoker Past Alcohol Use History: None Reported Past Drug Use History: None Reported Medications and Allergies Home Medications Medication Instructions Recorded Confirmed Type Atorvastatin [Lipitor] 40 mg PO DAILY 11/20/20 02/11/25 History Cariprazine HCl [Vraylar] 3 mg PO DAILY 11/20/20 02/11/25 History Cholecalciferol (Vitamin D3) 125 mcg PO DAILY 11/20/20 02/11/25 History [Vitamin D3 (5000 Iu)] Ferrous Sulfate [Iron (65 MG 325 mg PO DAILY 11/20/20 02/11/25 History Elemental)] Gabapentin 300 mg PO DAILY 11/20/20 02/11/25 History Glimepiride [Amaryl] 8 mg PO DAILY 11/20/20 02/11/25 History L.acidoph,Paracasei, B.lactis 1 cap PO DAILY 11/20/20 02/11/25 History [Probiotic] Multivitamins, Thera [Multivitamin 1 tab PO DAILY 11/20/20 02/11/25 History (formulary)] Tamsulosin [Flomax] 0.4 mg PO BID 11/20/20 02/11/25 History buPROPion XL [Wellbutrin XL] 150 mg PO DAILY 11/20/20 02/11/25 History Pentoxifylline [TRENtal] 400 mg PO AC-TID 05/13/24 02/11/25 History Benzonatate [Tessalon Perle] 200 mg PO TID PRN 11/19/24 02/11/25 History Cyanocobalamin (Vitamin B-12) 2,000 mcg PO DAILY 11/19/24 02/11/25 History [Vitamin B-12] Folic Acid 1 mg PO DAILY 11/19/24 02/11/25 History Gabapentin [Neurontin] 600 mg PO HS 11/19/24 02/11/25 History Pantoprazole [Protonix] 40 mg PO BID 11/19/24 02/11/25 History Active Mind(Otc) 1 tab PO DAILY 12/13/24 02/11/25 History Icaps 1 cap PO DAILY 12/13/24 02/11/25 History Magnesium 30mg 30 mg PO DAILY 12/13/24 02/11/25 History Vitamin B Complex 1 cap PO DAILY 12/13/24 02/11/25 History Zinc Gluconate [Zinc] 50 mg PO DAILY 12/13/24 02/11/25 History Apixaban [Eliquis] 2.5 mg PO BID #60 tab 12/16/24 02/11/25 Rx metFORMIN HCL [Glucophage] 1,000 mg PO BID 30 Days #120 tab 12/16/24 02/11/25 Rx Benzocaine/Menthol Lozeng [Cepacol 1 lozenge MUCOUS MEM Q4HR PRN 02/11/25 02/11/25 History lozenge] Bicalutamide [Casodex] 50 mg PO DAILY 02/11/25 02/11/25 History Furosemide [Lasix] 40 mg PO DAILY 02/11/25 02/11/25 History Ketoconazole 2% Cream [Nizoral 2%] 1 applic TOPICAL DAILY 02/11/25 02/11/25 History Midodrine [ProAmatine] 5 mg PO BID PRN 02/11/25 02/11/25 History Pioglitazone [Actos] 30 mg PO DAILY 02/11/25 02/11/25 History Allergies Allergy/AdvReac Type Severity Reaction Status Date / Time No Known Allergies Allergy Verified 02/11/25 12:08 Physical Exam Vitals: Vital Signs Temp Pulse Pulse Resp BP BP Pulse Ox 02/11/25 07:46 97.6 F 65 18 144/78 99 02/11/25 06:35 54 L 18 148/70 95 02/11/25 05:00 61 18 139/58 98 Intake and Output 02/10/25 02/11/25 02/11/25 22:59 06:59 14:59 Other: Weight 83.461 kg Results CBC & Chem 7: 02/11/25 13:54 Assessment and Plan Time with Patient: Less than 30
--- NOTE | 2025-02-12 16:58 | P.DS ---
Providers Date of admission: 02/11/25 05:35 Attending physician: Anabel Sharma Primary care physician: Abi Mix Hospital Course: Final Diagnosis Fall because of the hypoglycemia Hypoglycemia due to overdose on oral diabetic agents Mild acute kidney injury because of the metformin Paroxysmal atrial fibrillation anticoag with Eliquis Hypertension Hyperlipidemia Diabetes mellitus type 2 with diabetic neuropathy Coronary artery disease with prior cardiac catheterization in March 2024 revealing nonobstructive coronary artery disease, BPH GI prophylaxis Full Code Discharge Disposition Patient is stable for discharge home. Only take metformin as prescribed and follow up closely with PCP on discharge. Hospital Course This is a pleasant 84-year-old male with medical history significant for diabetes mellitus type 2 with diabetic neuropathy, paroxysmal atrial fibrillation anticoagulated with Eliquis, hypertension, hyperlipidemia, coronary artery disease with prior cardiac catheterization in March 2024 revealing nonobstructive coronary artery disease, BPH. Patient was admitted to the hospital due to episodes of hypoglycemia. Patient is a type II diabetic controlled with oral medications including metformin 1000 mg twice daily, Amaryl 8 mg daily as needed. Patient had elevated blood glucose at home and took 4 metformin tablets and since then has been having this persistent hypoglycemia. he does state he checks his blood glucose a few times a day and when it is elevated he takes an extra metformin. He was evaluated in the ER at 1:30 in the morning and was discharged home however on the way out of the urgency center patient became hypoglycemic and had a fall. He is on a blood thinner for the atrial fibrillation. Head cervical spine CT reveals no acute intracranial bleed or mass effect. There is no acute fracture or subluxation of the cervical spine. Pelvics x-ray reveals no acute findings. Chest x-ray reveals small amount of bibasilar atelectasis and or pneumonia. His EKG reveals atrial fibrillation with slow ventricular response heart rate of 44. Repeat EKG reveals atrial fibrillation heart rate of 60. White blood cell count 9.40, hemoglobin 10.3, sodium of 133 a BUN of 22 creatinine of 1.54 negative urinalysis. Troponin level has been negative and a proBNP is 400. Patient was found to have a blood sugar of 37 with his serum blood draw. He is now admitted to the hospital in observation started on a dextrose 5% with half-normal saline running at 75 mL/h and we will continue to monitor his blood glucose. Blood glucose is now elevated in the 300s. D5 has been discontinued and patient started on diet. He has no dizziness or lightheadedness. He has been up ambulating without difficulty. He will continue his oral agents and counseled extensively on only taking metformin as prescribed twice daily. Please see medication reconciliation for a list of current medications. Thank you for allowing us to participate in the care of this patient. The impression and plan of care has been dictated by Kait Smalls, Nurse Practitioner as directed. Dr. Home MD I have performed a history and physical examination and medical decision making of this patient, discussed the same with the dictator, and agree with the dictators assessment and plan as written, documented as a scribe. Based on total visit time, I have performed more than 50% of this visit. Patient Condition at Discharge: Fair Plan - Discharge Summary Discharge Rx Participant: Yes New Discharge Prescriptions: Continue Tamsulosin [Flomax] 0.4 mg PO BID Atorvastatin [Lipitor] 40 mg PO DAILY Cariprazine HCl [Vraylar] 3 mg PO DAILY Benzonatate [Tessalon Perle] 200 mg PO TID PRN PRN Reason: Cough Cyanocobalamin (Vitamin B-12) [Vitamin B-12] 2,000 mcg PO DAILY Gabapentin [Neurontin] 600 mg PO HS Pantoprazole [Protonix] 40 mg PO BID Vitamin B Complex 1 cap PO DAILY Magnesium 30mg 30 mg PO DAILY Icaps 1 cap PO DAILY Apixaban [Eliquis] 2.5 mg PO BID #60 tab metFORMIN HCL [Glucophage] 1,000 mg PO BID 30 Days #120 tab Pioglitazone [Actos] 30 mg PO DAILY Benzocaine/Menthol Lozeng [Cepacol lozenge] 1 lozenge MUCOUS MEM Q4HR PRN PRN Reason: Cough L.acidoph,Paracasei, B.lactis [Probiotic] 1 cap PO DAILY Multivitamins, Thera [Multivitamin (formulary)] 1 tab PO DAILY Gabapentin 300 mg PO DAILY Cholecalciferol (Vitamin D3) [Vitamin D3 (5000 Iu)] 125 mcg PO DAILY buPROPion XL [Wellbutrin XL] 150 mg PO DAILY Glimepiride [Amaryl] 8 mg PO DAILY Ferrous Sulfate [Iron (65 MG Elemental)] 325 mg PO DAILY Pentoxifylline [TRENtal] 400 mg PO AC-TID Folic Acid 1 mg PO DAILY Zinc Gluconate [Zinc] 50 mg PO DAILY Active Mind(Otc) 1 tab PO DAILY Ketoconazole 2% Cream [Nizoral 2%] 1 applic TOPICAL DAILY Midodrine [ProAmatine] 5 mg PO BID PRN PRN Reason: Blood Pressure - Low Bicalutamide [Casodex] 50 mg PO DAILY Furosemide [Lasix] 40 mg PO DAILY Discharge Medication List Atorvastatin [Lipitor] 40 mg PO DAILY 11/20/20 [History] Cariprazine HCl [Vraylar] 3 mg PO DAILY 11/20/20 [History] Cholecalciferol (Vitamin D3) [Vitamin D3 (5000 Iu)] 125 mcg PO DAILY 11/20/20 [History] Ferrous Sulfate [Iron (65 MG Elemental)] 325 mg PO DAILY 11/20/20 [History] Gabapentin 300 mg PO DAILY 11/20/20 [History] Glimepiride [Amaryl] 8 mg PO DAILY 11/20/20 [History] L.acidoph,Paracasei, B.lactis [Probiotic] 1 cap PO DAILY 11/20/20 [History] Multivitamins, Thera [Multivitamin (formulary)] 1 tab PO DAILY 11/20/20 [History] Tamsulosin [Flomax] 0.4 mg PO BID 11/20/20 [History] buPROPion XL [Wellbutrin XL] 150 mg PO DAILY 11/20/20 [History] Pentoxifylline [TRENtal] 400 mg PO AC-TID 05/13/24 [History] Benzonatate [Tessalon Perle] 200 mg PO TID PRN 11/19/24 [History] Cyanocobalamin (Vitamin B-12) [Vitamin B-12] 2,000 mcg PO DAILY 11/19/24 [History] Folic Acid 1 mg PO DAILY 11/19/24 [History] Gabapentin [Neurontin] 600 mg PO HS 11/19/24 [History] Pantoprazole [Protonix] 40 mg PO BID 11/19/24 [History] Active Mind(Otc) 1 tab PO DAILY 12/13/24 [History] Icaps 1 cap PO DAILY 12/13/24 [History] Magnesium 30mg 30 mg PO DAILY 12/13/24 [History] Vitamin B Complex 1 cap PO DAILY 12/13/24 [History] Zinc Gluconate [Zinc] 50 mg PO DAILY 12/13/24 [History] Apixaban [Eliquis] 2.5 mg PO BID #60 tab 12/16/24 [Rx] metFORMIN HCL [Glucophage] 1,000 mg PO BID 30 Days #120 tab 12/16/24 [Rx] Benzocaine/Menthol Lozeng [Cepacol lozenge] 1 lozenge MUCOUS MEM Q4HR PRN 02/11/25 [History] Bicalutamide [Casodex] 50 mg PO DAILY 02/11/25 [History] Furosemide [Lasix] 40 mg PO DAILY 02/11/25 [History] Ketoconazole 2% Cream [Nizoral 2%] 1 applic TOPICAL DAILY 02/11/25 [History] Midodrine [ProAmatine] 5 mg PO BID PRN 02/11/25 [History] Pioglitazone [Actos] 30 mg PO DAILY 02/11/25 [History] Follow up Appointment(s)/Referral(s): Abi Mix DO [Primary Care Provider] - 02/14/25 10:00 am (Please take ALL discharge paperwork to appointment with you. ) Ambulatory/Diagnostic Orders: Basic Metabolic Panel [LAB.AMB] Time Frame: 3 Days, Location: None Selected Patient Instructions/Handouts: Hypoglycemia in a Person with Diabetes (DC) Activity/Diet/Wound Care/Special Instructions: Only take metformin as prescribed. Do not take additional Metformin pills if your blood sugar is high-additional medication may adversly effect your kidneys and liver. Please right down your blood sugar results and take them to Dr. Mix. Follow up with Dr Mix Discharge Disposition: HOME SELF-CARE
== END 2025-02-11 16:50 | disposition home or self-care (01) ==
LOC: EC 04:45 → INTOOBSV 05:35 → 5NMEDONC 05:35
PROVIDERS: ADMIT Hospitalist; ATTEND Hospitalist
DX: E11.649 Type 2 diabetes mellitus with hypoglycemia without coma (principal); E11.40 Type 2 diabetes mellitus with diabetic neuropathy, unspecified; S09.90XA Unspecified injury of head, initial encounter; W18.30XA Fall on same level, unspecified, initial encounter; R00.1 Bradycardia, unspecified; N17.9 Acute kidney failure, unspecified; I48.0 Paroxysmal atrial fibrillation; I10 Essential (primary) hypertension; E78.5 Hyperlipidemia, unspecified; I25.10 Atherosclerotic heart disease of native coronary artery without angina pectoris; N40.0 Benign prostatic hyperplasia without lower urinary tract symptoms; Z79.01 Long term (current) use of anticoagulants; Z79.84 Long term (current) use of oral hypoglycemic drugs; Z79.899 Other long term (current) drug therapy
CPT/HCPCS: 96374; 96375; 99285; 36415; 93005; 80048; 81003; 72170; 71045; 72125; 70450; G0378; J2354; 96361